=== PATIENT | male | born 1970 | race Hispanic/Latino ===

== ENCOUNTER 2019-01-16 17:29 | Inpatient (IN) | payer MEDICARE ==
[~2019-01-16] VITALS: Ht 177.8 cm; Wt 163.0 kg
[2019-01-16 18:24] LABS: BASOPHILS % (AUTO) 0.8 % (0.0-5.0); EOSINOPHILS % (AUTO) 2.2 % (0.0-8.0); HEMATOCRIT 29.5 % (42-54); LYMPHOCYTES % (AUTO) 6.6 % (21.0-51.0); MEAN CORPUSCULAR HGB CONC 33.8 g/dL (32.0-36.0); MEAN CORPUSCULAR VOLUME 97.8 fL (79-99); MONOCYTES % (AUTO) 7.6 % (3.0-13.0); NEUTROPHILS % (AUTO) 82.8 % (40.0-77.0); PLATELET COUNT (AUTO) 92 K/uL (130-400); RED BLOOD CELL COUNT(AUTO) 3.02 MIL/uL (4.50-6.20); RED CELL DISTRIBUTION WIDTH 17.3 % (11.0-15.5); WHITE BLOOD COUNT (AUTO) 9.5 K/uL (4.8-10.8)
[2019-01-16 18:34] LABS: INR 1.08 (0.85-1.15); PROTHROMBIN TIME 11.3 SEC (9.6-11.6)
[2019-01-16 18:41] LABS: CREATININE 5.9 mg/dL (0.5-1.5); POTASSIUM 4.6 mmol/L (3.5-5.1)
[2019-01-16 18:43] LABS: ALBUMIN 3.4 g/dL (3.5-5.0); BILIRUBIN,TOTAL 0.9 mg/dL (0.2-1.0); TROPONIN I 0.22 ng/mL (0.00-0.06)
[2019-01-16 19:27] LABS: APPEARANCE,URINE CLEAR (CLEAR); BILIRUBIN,URINE NEGATIVE (NEGATIVE); COLOR,URINE YELLOW (YELLOW); GLUCOSE, URINE (UA) NEGATIVE (NEGATIVE); KETONES,URINE NEGATIVE (NEGATIVE); LEUKOCYTE ESTERASE ,URINE SMALL (NEGATIVE); NITRATE,URINE NEGATIVE (NEGATIVE); OCCULT BLOOD,URINE SMALL (NEGATIVE); PH,URINE 8.5 (5.0-8.0); PROTEIN,URINE >=300 (NEGATIVE); UROBILINOGEN,URINE 0.2 mg/dL (0.2-1.0)
[2019-01-16] MEDS ORDERED: ZOSYN 3.375GM+NS 50ML 50 ML IV ONE (19:47)
[2019-01-16 19:48] LABS: BACTERIA,URINE Rare /HPF (None Seen); MUCUS,URINE Few LPF (None Seen)
[2019-01-16] MEDS ORDERED: ACETAMINOPHEN EXTRA STRENGTH 500 MG TABLET ONE (19:48)
[2019-01-16] MEDS ORDERED: VANCOMYCIN 1GM+NS 250ML 250 ML IV ONE (20:34)
[2019-01-16] MEDS ORDERED: VANCOMYCIN 1GM+NS 250ML 250 ML IV SCH (20:45)
[2019-01-16] MEDS ORDERED: ONDANSETRON HCL 4 MG/2 ML VIAL IV PRN (20:45)
[2019-01-16] MEDS ORDERED: ACETAMINOPHEN 325 MG TAB PO PRN (20:45)
[2019-01-16] MEDS ORDERED: VANCOMYCIN PROTOCOL PER PHARMACY IV SCH (20:45)
[2019-01-16] MEDS: ZOSYN 3.375GM+NS 50ML 50 ML IV SCH (21:00)
[2019-01-16] MEDS ORDERED: FAMOTIDINE/PF 20 MG/2 ML VIAL IV ONE (21:22)
[2019-01-16] MEDS ORDERED: SIMV40TA59 PO (22:54)
[2019-01-16] MEDS ORDERED: HYDR-3420 PO (22:54)
[2019-01-16] MEDS ORDERED: METO25TA6 PO (22:54)
[2019-01-16] MEDS ORDERED: SEVE800T7 PO (22:54)
[2019-01-16] MEDS ORDERED: FOLI0.8T22 PO (22:54)
[2019-01-16] MEDS ORDERED: ACETAMINOPHEN 325 MG TAB ONE ×2 (23:07)
[2019-01-16] MEDS ORDERED: HYDRALAZINE HCL 20 MG/ML VIAL ONE (23:07)
[2019-01-17] MEDS ORDERED: IBUPROFEN 600 MG TABLET ONE (00:33)
[2019-01-17] MEDS ORDERED: ZOSYN 3.375GM+NS 50ML 50 ML IV ONE ×3 (04:23→21:43)
[2019-01-17] MEDS ORDERED: ACETAMINOPHEN 325 MG TAB ONE ×2 (04:40→18:42)
[2019-01-17] MEDS ORDERED: MORPHINE SULFATE 4 MG/1ML SYG ONE ×3 (04:40→18:42)
[2019-01-17] MEDS: FAMOTIDINE/PF 20 MG/2 ML VIAL IV SCH (09:00)
[2019-01-17] MEDS: ZOSYN 3.375GM+NS 50ML 50 ML IV SCH ×2 (18:16→21:00)
[2019-01-17] MEDS ORDERED: VANCOMYCIN 1GM+NS 250ML 250 ML IV ONE (18:20)
[2019-01-17] MEDS ORDERED: FAMOTIDINE/PF 20 MG/2 ML VIAL IV ONE (21:43)
[2019-01-18] VITALS (28 sets, daily range): BP systolic 97–138; BP diastolic 35–82
[2019-01-18] MEDS ORDERED: ACETAMINOPHEN 325 MG TAB ONE (04:19)
[2019-01-18 05:03] LABS: BASOPHILS % (AUTO) 0.5 % (0.0-5.0); EOSINOPHILS % (AUTO) 0.6 % (0.0-8.0); HEMATOCRIT 28.7 % (42-54); LYMPHOCYTES % (AUTO) 3.5 % (21.0-51.0); MEAN CORPUSCULAR HEMOGLOBIN 32.4 pg (27.0-33.0); MEAN CORPUSCULAR HGB CONC 32.9 g/dL (32.0-36.0); MEAN CORPUSCULAR VOLUME 98.3 fL (79-99); NEUTROPHILS % (AUTO) 87.4 % (40.0-77.0); PLATELET COUNT (AUTO) 74 K/uL (130-400); RED BLOOD CELL COUNT(AUTO) 2.92 MIL/uL (4.50-6.20); RED CELL DISTRIBUTION WIDTH 18.6 % (11.0-15.5); WHITE BLOOD COUNT (AUTO) 19.6 K/uL (4.8-10.8)
[2019-01-18 05:24] LABS: ALBUMIN 2.7 g/dL (3.5-5.0); BILIRUBIN,TOTAL 1.7 mg/dL (0.2-1.0); MAGNESIUM 2.1 mg/dL (1.80-2.40); PHOSPHORUS 4.4 mg/dL (2.5-4.9); POTASSIUM 5.6 mmol/L (3.5-5.1); TOTAL PROTEIN, SERUM 6.9 g/dL (6.0-8.3)
[2019-01-18 05:26] LABS: CREATININE 9.5 mg/dL (0.5-1.5)
[2019-01-18] MEDS ORDERED: COMPOUND IV REFRIGERATED 1 EACH IVSOLN MISC PRN (07:30)
[2019-01-18] MEDS ORDERED: DEXTROSE 50%-WATER 25 GM/50 ML VIAL ONE (08:03)
[2019-01-18] MEDS: ZOSYN 3.375GM+NS 50ML 50 ML IV SCH ×2 (09:00→21:21)
[2019-01-18] MEDS ORDERED: VANCOMYCIN 2 GM in SODIUM CHLORIDE 0.9% 500ML 500 ML IV SCH (09:00)
[2019-01-18] MEDS ORDERED: MIDODRINE HCL 5 MG TABLET PO SCH (09:00)
[2019-01-18] MEDS: MIDODRINE HCL 5 MG TABLET PO SCH ×3 (09:00→21:21)
[2019-01-18] MEDS: INSULIN HUMULIN R 100 UNIT/ML 3ML SQ SCH ×3 (11:30→20:33)
[2019-01-18] MEDS ORDERED: BUPIVACAINE/PF 0.5% 30ML VIAL ONE (14:02)
[2019-01-18] MEDS ORDERED: LIDOCAINE HCL 1% 20 ML VIAL ONE (14:02)
[2019-01-18] MEDS ORDERED: LIDOCAINE HCL 2% 20ML ONE (14:16)
[2019-01-18] MEDS ORDERED: PROPOFOL 10 MG/ML 20ML VIAL IV ONE (14:33)
[2019-01-18] MEDS ORDERED: FENTANYL CITRATE PF 50 MCG/1 ML 2ML VIAL ONE (14:33)
[2019-01-18] MEDS ORDERED: MIDAZOLAM HCL 1 MG/ML 2ML VIAL ONE (14:33)
[2019-01-18] MEDS ORDERED: DEXTROSE 50%-WATER 50 ML DISP.SYRIN IV ONE (14:36)
[2019-01-18] MEDS ORDERED: THROMBIN-JMI 5000 UNIT/VIAL TP ONE (15:32)
[2019-01-18] MEDS: SODIUM CHLORIDE 0.9% 1000ML 1,000 ML IV PRN (15:55)
[2019-01-18 16:39] LABS: BASOPHILS % (AUTO) 0.4 % (0.0-5.0); EOSINOPHILS % (AUTO) 1.4 % (0.0-8.0); HEMATOCRIT 27.5 % (42-54); LYMPHOCYTES % (AUTO) 3.3 % (21.0-51.0); MEAN CORPUSCULAR HEMOGLOBIN 32.6 pg (27.0-33.0); MEAN CORPUSCULAR HGB CONC 33.1 g/dL (32.0-36.0); MEAN CORPUSCULAR VOLUME 98.4 fL (79-99); MONOCYTES % (AUTO) 6.6 % (3.0-13.0); NEUTROPHILS % (AUTO) 88.3 % (40.0-77.0); NUCLEATED RED BLOOD CELLS 0.1 % (0.0-0.19); PLATELET COUNT (AUTO) 71 K/uL (130-400); RED CELL DISTRIBUTION WIDTH 18.1 % (11.0-15.5); WHITE BLOOD COUNT (AUTO) 16.9 K/uL (4.8-10.8)
[2019-01-18 16:47] LABS: CREATININE 6.7 mg/dL (0.5-1.5); POTASSIUM 4.2 mmol/L (3.5-5.1)
--- NOTE | 2019-01-18 17:45 | NUR ---
Patient received from recovery room via bed. Assessment done. Dr. Goncalves notified of patient. Addendum: 01/18/19 at 1753 by JILLIAN STOUT RN RN Amended: Links added.
[2019-01-18] MEDS ORDERED: METOPROLOL TARTRATE 1 MG/ML 5ML VIAL IV PRN (18:15)
[2019-01-18] MEDS: FAMOTIDINE/PF 20 MG/2 ML VIAL IV SCH (18:28)
[2019-01-18] MEDS: ACETAMINOPHEN 325 MG TAB PO PRN ×2 (18:43→22:54)
[2019-01-19] VITALS (17 sets, daily range): BP systolic 91–158; BP diastolic 25–79
[2019-01-19] MEDS: ACETAMINOPHEN 325 MG TAB PO PRN ×2 (03:02→09:19)
[2019-01-19 03:50] LABS: HEMATOCRIT 25.9 % (42-54); MEAN CORPUSCULAR HEMOGLOBIN 32.7 pg (27.0-33.0); MEAN CORPUSCULAR HGB CONC 33.2 g/dL (32.0-36.0); MEAN CORPUSCULAR VOLUME 98.6 fL (79-99); NUCLEATED RED BLOOD CELLS 0.2 % (0.0-0.19); PLATELET COUNT (AUTO) 97 K/uL (130-400); RED BLOOD CELL COUNT(AUTO) 2.63 MIL/uL (4.50-6.20); WHITE BLOOD COUNT (AUTO) 19.2 K/uL (4.8-10.8)
[2019-01-19 04:01] LABS: CREATININE 7.5 mg/dL (0.5-1.5); POTASSIUM 4.4 mmol/L (3.5-5.1)
[2019-01-19 05:13] LABS: ERYTHROCYTE SEDIMENTATION RATE 58 MM/HR (0-20)
[2019-01-19] MEDS: INSULIN HUMULIN R 100 UNIT/ML 3ML SQ SCH ×4 (06:52→21:00)
[2019-01-19] MEDS: FAMOTIDINE/PF 20 MG/2 ML VIAL IV SCH (08:40)
[2019-01-19] MEDS: ZOSYN 3.375GM+NS 50ML 50 ML IV SCH ×2 (08:40→23:32)
[2019-01-19] MEDS: FOLIC ACID/VITAMIN B COMP W-C 1 MG CAPSULE PO SCH (09:18)
[2019-01-19] MEDS: SIMVASTATIN 20 MG TABLET PO SCH (09:18)
[2019-01-19] MEDS: METOPROLOL TARTRATE 25 MG TAB PO SCH (09:18)
--- NOTE | 2019-01-19 10:00 | NUR ---
Report given to Cesilia NATION. Patient with no acute distress noted.
[2019-01-19] MEDS: SEVELAMER HCL 800 MG TABLET PO SCH ×2 (11:05→17:07)
[2019-01-19] MEDS: MORPHINE SULFATE 4 MG/1ML SYG IV PRN (11:06)
--- NOTE | 2019-01-19 14:35 | NUR ---
DC PLAN VISITED WITH PATIENT. PATIENT LIVES ALONE. SEMI INDEPENDENT ABLE TO PERFORM SOME ADL'S. PATIENT HAS A WALKER AND WHEEL CHAIR. PROVIDER 4 HRS A DAY. FEELS SAFE TO RETURN HOME. SAYS HE HAD SIMILAR WOUNDS TO OTHER FOOT AND WAS ABLE TO DO OWN WOUND CARE. Addendum: 01/19/19 at 1437 by MANUEL ODOM RN CM Amended: Links added.
[2019-01-19] MEDS: DIPH,PERTUSS(ACELL),TET VAC/PF 0.5 ML VIAL IM SCH (17:09)
--- NOTE | 2019-01-19 20:40 | NUR ---
UNWITNESSED FALL PATIENT WAS HEARD YELLING FROM HIS ROOM. PATIENT WAS FOUND ON THE FLOOR ON HIS BOTTOM BY RIOS GOMEZ AND THIS NURSE. PATIENT STATED HE WAS ATTEMPTING TO GET UP FROM THE WHEELCHAIR AND DIDN'T REALIZE THAT THE WHEELCHAIR WASN'T LOCKED. PATIENT STATES THAT HE "SLID OFF" THE WHEELCHAIR AND LANDED ON HIS BUTT. PATIENT STATES IT WAS NOT A HARD FALL. PATIENT DENIES PAIN OR INJURY. PATIENT ASSISTED TO BED BY STAFF. VITAL SIGNS TAKEN FREQUENTLY. Josefina SLOAN, PATIENT SERVICES COORDINATOR NOTIFIED. W[facility]ACE [facility] ALSO NOTIFIED. SEE ORDERS PER WAREHOUSE CLERK. CALL LIGHT PLACED WITHIN PATIENT'S REACH. ADVISED PATIENT NOT TO ATTEMPT TO GET UP WITHOUT ASSISTANCE. PATIENT VERBALIZED UNDERSTANDING.
[2019-01-19] MEDS: HYDRALAZINE HCL 10 MG TABLET PO SCH (21:00)
[2019-01-20 02:49] VITALS: BP 107/59
[2019-01-20 03:36] LABS: HEMATOCRIT 24.7 % (42-54); MEAN CORPUSCULAR HEMOGLOBIN 33.6 pg (27.0-33.0); MEAN CORPUSCULAR HGB CONC 34.5 g/dL (32.0-36.0); MEAN CORPUSCULAR VOLUME 97.4 fL (79-99); NUCLEATED RED BLOOD CELLS 0.1 % (0.0-0.19); PLATELET COUNT (AUTO) 97 K/uL (130-400); RED BLOOD CELL COUNT(AUTO) 2.53 MIL/uL (4.50-6.20); RED CELL DISTRIBUTION WIDTH 18.3 % (11.0-15.5); WHITE BLOOD COUNT (AUTO) 13.8 K/uL (4.8-10.8)
[2019-01-20 03:54] LABS: PHOSPHORUS 4.1 mg/dL (2.5-4.9); POTASSIUM 4.3 mmol/L (3.5-5.1)
[2019-01-20 03:56] LABS: CREATININE 9.2 mg/dL (0.5-1.5)
[2019-01-20 05:45] LABS: EOSINOPHILS % (MANUAL) 3 % (1-6); LYMPHOCYTES % (MANUAL) 8 % (22-44); MONOCYTES % (MANUAL) 7 % (2-9); SEGMENTED NEUTROPHILS % 82 % (40-70)
[2019-01-20 05:46] LABS: MAN.DIFF COMMENT-IMPRESSION MANUAL DIFFERENTIAL; PLATELET MORPHOLOGY COMMENT SLIGHTLY DECREASED
[2019-01-20] MEDS: INSULIN HUMULIN R 100 UNIT/ML 3ML SQ SCH ×4 (05:46→20:59)
[2019-01-20] MEDS: SIMVASTATIN 20 MG TABLET PO SCH (07:42)
[2019-01-20] MEDS: ZOSYN 3.375GM+NS 50ML 50 ML IV SCH ×2 (07:42→21:02)
[2019-01-20] MEDS: METOPROLOL TARTRATE 25 MG TAB PO SCH (07:42)
[2019-01-20] MEDS: FOLIC ACID/VITAMIN B COMP W-C 1 MG CAPSULE PO SCH (07:42)
[2019-01-20] MEDS: SEVELAMER HCL 800 MG TABLET PO SCH ×3 (07:42→16:45)
[2019-01-20] MEDS: FAMOTIDINE/PF 20 MG/2 ML VIAL IV SCH (07:42)
[2019-01-20 08:09] VITALS: BP 140/81
[2019-01-20] MEDS: DIPH,PERTUSS(ACELL),TET VAC/PF 0.5 ML VIAL IM SCH (11:31)
[2019-01-20 11:49] VITALS: BP 105/70
[2019-01-20 16:00] VITALS: BP 129/69
[2019-01-20 19:26] VITALS: BP 156/57
[2019-01-20] MEDS: HYDRALAZINE HCL 10 MG TABLET PO SCH (21:00)
[2019-01-20 23:26] VITALS: BP 114/53
[2019-01-21] MEDS: ACETAMINOPHEN 325 MG TAB PO PRN ×2 (03:30→20:29)
[2019-01-21 04:06] VITALS: BP 135/58
[2019-01-21 04:49] LABS: BASOPHILS % (AUTO) 0.7 % (0.0-5.0); EOSINOPHILS % (AUTO) 3.4 % (0.0-8.0); HEMATOCRIT 23.7 % (42-54); MEAN CORPUSCULAR HEMOGLOBIN 33.1 pg (27.0-33.0); MEAN CORPUSCULAR VOLUME 97.4 fL (79-99); MONOCYTES % (AUTO) 12.5 % (3.0-13.0); NEUTROPHILS % (AUTO) 74.4 % (40.0-77.0); NUCLEATED RED BLOOD CELLS 0.2 % (0.0-0.19); PLATELET COUNT (AUTO) 109 K/uL (130-400); RED BLOOD CELL COUNT(AUTO) 2.44 MIL/uL (4.50-6.20); WHITE BLOOD COUNT (AUTO) 11.4 K/uL (4.8-10.8)
[2019-01-21 05:07] LABS: POTASSIUM 4.5 mmol/L (3.5-5.1)
[2019-01-21 05:13] LABS: CREATININE 10.7 mg/dL (0.5-1.5)
[2019-01-21] MEDS: INSULIN HUMULIN R 100 UNIT/ML 3ML SQ SCH ×4 (06:37→21:00)
[2019-01-21 07:37] VITALS: BP 109/37
[2019-01-21] MEDS: DIPH,PERTUSS(ACELL),TET VAC/PF 0.5 ML VIAL IM SCH (07:49)
[2019-01-21] MEDS: SEVELAMER HCL 800 MG TABLET PO SCH ×3 (08:38→16:46)
[2019-01-21] MEDS: FOLIC ACID/VITAMIN B COMP W-C 1 MG CAPSULE PO SCH (09:07)
[2019-01-21] MEDS: FAMOTIDINE/PF 20 MG/2 ML VIAL IV SCH (09:07)
[2019-01-21] MEDS: SIMVASTATIN 20 MG TABLET PO SCH (09:07)
[2019-01-21] MEDS: METOPROLOL TARTRATE 25 MG TAB PO SCH (09:07)
[2019-01-21] MEDS: ZOSYN 3.375GM+NS 50ML 50 ML IV SCH ×2 (09:07→20:49)
[2019-01-21 11:08] VITALS: BP 113/62
--- NOTE | 2019-01-21 14:37 | NUR ---
DC PLAN SPOKE TO DR. RAKESH BLACKWOOD. SPOKE TO PATIENT . GOT CORY AND INFO FAXED AND EMAILED. PENDING REP. SEE CARDIO NOTE.
--- NOTE | 2019-01-21 14:39 | NUR ---
CARDIO SPOKE TO DR. CAMERON REGARDING DR. GOOD NOTES. DR. GOOD SAID WANTED CARDIO TO SEE ABOUT CIRCULATION SINCE POSTERIOR TIBIAL ARTERY COULD NOT BE SEEN IN US. HE MENTIONED DR. ADDISON BUT NO ORDER PLACED. DR. STARK SAID [facility] HAD ALREADY BEEN CONSULTED DR. SCHMIDT. SPOKE TO KATHY TO SEE IF THEY HAD SEEN PATIENT. SAID THEY HAD NOT BUT THAT DR. TRACEY FOOTWEAR PRODUCTION MACHINE OPERATOR TODAY AND TO PAGE HIM. I DID GO OVER THE US AND DR. GOOD NOTES WITH KATHY. LET RAMON NURSE KNOW ABOUT CARDIO CONSULT.
[2019-01-21 15:22] VITALS: BP 113/55
[2019-01-21] MEDS: SODIUM CHLORIDE 0.9% 1000ML 1,000 ML IV PRN (18:37)
[2019-01-21 18:59] VITALS: BP 151/63
--- NOTE | 2019-01-21 19:45 | NUR ---
NEW IV TO RIGHT WRIST 20G. DONE BY DONALD NATION.
[2019-01-21] MEDS: MORPHINE SULFATE 4 MG/1ML SYG IV PRN (20:50)
[2019-01-21] MEDS: HYDRALAZINE HCL 10 MG TABLET PO SCH (21:00)
--- NOTE | 2019-01-21 21:00 | NUR ---
PT IS IN BED. FINISHED DIALYSIS. 2.5 LITERS WERE REMOVED. NO DISTRESS NOTED.LOW BLOOD PRESSURE SO DID NOT RECEIVE HYDRALAZINE. 117/56. STABLE. ROOM AIR. AAO4. PERRLA. ACTIVE BOWEL SOUNDS. LAST BM 01/21.CONTINUE TO HAVE DRAINAGE IN WOUND ON RIGHT LOWER HEEL. HAS RIGHT AMPUTATION TO GREAT TOE. DR. GOOD DID DRESSING TODAY DURING THE DAY. PT AWARE OF CT'S SCHEDULE FOR THE AM AND NPO BY MIDNIGHT.
--- NOTE | 2019-01-21 22:45 | NUR ---
PT IS AFIB. TRENDING IN 103-106'S. NO DISTRESS NOTED. NOTIFIED DR. TRACEY. STATED IS AWARE. PT WILL BE GOING IN AND OUT OF AFIB. LOPRESSOR IV AVAILABLE IF NEEDED FOR HR OVER 100. NEW ORDER FOR LOPRESSOR 25MG BID.
[2019-01-21 23:15] VITALS: BP 106/56
[2019-01-22] MEDS: ACETAMINOPHEN 325 MG TAB PO PRN ×2 (02:46→13:42)
[2019-01-22 03:24] VITALS: BP 108/50
[2019-01-22] MEDS: MORPHINE SULFATE 4 MG/1ML SYG IV PRN (04:14)
--- NOTE | 2019-01-22 05:26 | NUR ---
PT IS SR 85
[2019-01-22] MEDS: INSULIN HUMULIN R 100 UNIT/ML 3ML SQ SCH ×4 (06:18→20:47)
[2019-01-22 07:53] VITALS: BP 128/64
[2019-01-22] MEDS: SEVELAMER HCL 800 MG TABLET PO SCH ×3 (08:00→16:58)
[2019-01-22] MEDS: FAMOTIDINE/PF 20 MG/2 ML VIAL IV SCH (09:00)
[2019-01-22] MEDS: FOLIC ACID/VITAMIN B COMP W-C 1 MG CAPSULE PO SCH (09:00)
[2019-01-22] MEDS: SIMVASTATIN 20 MG TABLET PO SCH (09:00)
[2019-01-22] MEDS: METOPROLOL TARTRATE 25 MG TAB PO SCH ×2 (09:00→21:00)
[2019-01-22] MEDS: APIXABAN 5 MG TABLET PO SCH ×3 (09:15→20:24)
[2019-01-22] MEDS: ZOSYN 3.375GM+NS 50ML 50 ML IV SCH ×2 (11:02→20:17)
[2019-01-22] MEDS: DIPH,PERTUSS(ACELL),TET VAC/PF 0.5 ML VIAL IM SCH (11:08)
[2019-01-22 11:33] VITALS: BP 146/75
[2019-01-22 15:50] VITALS: BP 143/58
--- NOTE | 2019-01-22 16:00 | NUR ---
PT STATUS After multiple unsuccessful attempts for PIV insertion, phone call placed to [facility] in an attempt to update . CT angiogram ordered by has not yet been completed because pt has had unacceptable access to perform contrast injection. PIV insertion with use of ultrasound was also attempted. made aware of situation.
[2019-01-22 18:49] VITALS: BP 138/65
[2019-01-22] MEDS: HYDRALAZINE HCL 10 MG TABLET PO SCH (20:20)
--- NOTE | 2019-01-22 21:00 | NUR ---
IN BED, FAMILY AT BEDSIDE. DR. GOOD CAME IN TO SEE PT AND DO WOUND CARE. PT WAS UNABLE TO HAVE CT DONE DUE TO NO PERIPHERAL ACCESS. DIFFICULTY GETTING AN IV AFTER MULTIPLE ATTEMPTS AND ULTRASOUNDS. PENDING BENTON CATHETER TO BE PLACED 01/23 AT 1400 PER TRAVELING CLERK. PT AWARE. NO PAIN STATED AT THIS TIME. PT ABLE TO TRANSFER ON HIS OWN. USES WHEELCHAIR.
[2019-01-22 23:16] VITALS: BP 123/62
[2019-01-23 03:17] VITALS: BP 132/61
[2019-01-23 03:54] LABS: INR 1.15 (0.85-1.15); PARTIAL THROMBOPLASTIN TIME 32.2 SEC (26.3-35.5)
[2019-01-23] MEDS: INSULIN HUMULIN R 100 UNIT/ML 3ML SQ SCH ×3 (06:42→21:00)
[2019-01-23] MEDS: ACETAMINOPHEN 325 MG TAB PO PRN (06:49)
--- NOTE | 2019-01-23 07:40 | NUR ---
ASSESSMENT ENCOUNTERED PT A&OX3, CALM COOPERATIVE AND DOES NOT APPEAR TO BE IN ANY DISTRESS NOR ANY NEURO DEFICITS PRESENT. PT DENIES PAIN, SOB, NAUSEA. LAVA WITH BRUIT/THRILL PRESENT. RLE DRESSING DRY AND INTACT. PT IS ABLE TO REPOSITION HIMSELF TO WHEELCHAIR. CALL LIGHT WITHIN REACH, FAMILY AT BEDSIDE.
[2019-01-23 07:48] VITALS: BP 130/70
[2019-01-23 08:22] LABS: HEPATITIS Bs ANTIGEN SCREEN P Negative (Negative)
[2019-01-23 11:36] VITALS: BP 119/49
--- NOTE | 2019-01-23 12:45 | NUR ---
MIGUELCREEN - LOS X 7 Patient post-op amputation. Patient tolerating 75gm CCD with no report of GI distress and PO intake at 100%. Diet modified to Renal Dialysis. Patient LBM 01/21/19. Patient monitored labs: Glu 137, Alb 2.5, Na 133, Cl 92, BUN 77, Cr 10.7, GFR 5, Ca 8.4. RD provided dialysis diet education. RD to continue to monitor. Please notify ÁNGELA as nutritional concerns arise. Addendum: 01/23/19 at [address] RD Amended: Links added.
--- NOTE | 2019-01-23 12:58 | NUR ---
Diet Education ÁNGELA Provided Renal Dialysis diet education. Patient accepted education reference materials and handouts. Patient verbalized understanding. RD to follow up. Addendum: 01/23/19 at [address] Amended: Links added.
[2019-01-23] MEDS ORDERED: IOHEXOL-350 75 ML VIAL IV ONE (14:25)
[2019-01-23] MEDS ORDERED: IOHEXOL-350 50ML VIAL IV ONE (14:25)
[2019-01-23 16:30] VITALS: BP 164/76
[2019-01-23 19:00] VITALS: BP 151/74
--- NOTE | 2019-01-23 20:00 | NUR ---
PATIENT JUST COMPLETED DIALYSIS. DENIES ANY COMPLAINTS OF PAIN OR DISCOMFORT. POSITIVE BRUIT/THRILL TO LT AV GRAFT. DRESSING TO FOOT CLEAN, DRY, AND INTACT. IV SITE INTACT, TO GO WITH PATIENT. CALL DIANE WITHIN REACH.
[2019-01-23] MEDS: APIXABAN 5 MG TABLET PO SCH (20:10)
[2019-01-23] MEDS: HYDRALAZINE HCL 10 MG TABLET PO SCH (20:10)
[2019-01-23] MEDS: METOPROLOL TARTRATE 25 MG TAB PO SCH (20:11)
[2019-01-23] MEDS ORDERED: EPOETIN ALFA 10,000 UNIT/ML VIAL SQ SCH (21:00)
[2019-01-23 23:00] VITALS: BP 145/73
--- NOTE | 2019-01-23 23:52 | NUR ---
PATIENT TAKEN BY STRETCHER TO [facility]. ALL PAPERWORK ACCOMPANIED PATIENT AND EMS. PATIENT TAKES HAS GOT ALL HIS PERSONAL PROPERTY
== END 2019-01-23 23:50 | DRG 853 ==
LOC: EDH 17:29 → EDHIP 19:55 → 2BH 01-18 17:51 → 2AH 01-19 09:54
PROVIDERS: ADMIT Internal Medicine; ATTEND Internal Medicine
PROC: 0Y6P0Z0 Detachment at Right 1st Toe, Complete, Open Approach (ICD-10-PCS; principal; 2019-01-16)
PROC: 3E0234Z Introduction of Serum, Toxoid and Vaccine into Muscle, Percutaneous Approach (ICD-10-PCS; 2019-01-16)
PROC: 5A1D70Z Performance of Urinary Filtration, Intermittent, Less than 6 Hours Per Day (ICD-10-PCS; 2019-01-18)
PROC: 5A1D70Z Performance of Urinary Filtration, Intermittent, Less than 6 Hours Per Day (ICD-10-PCS; 2019-01-21)
PROC: 5A1D70Z Performance of Urinary Filtration, Intermittent, Less than 6 Hours Per Day (ICD-10-PCS; 2019-01-23)
DX: A41.01 Sepsis due to Methicillin susceptible Staphylococcus aureus (principal); N18.6 End stage renal disease; R65.21 Severe sepsis with septic shock; L03.115 Cellulitis of right lower limb; Z68.43 Body mass index [BMI] 50.0-59.9, adult; M86.671 Other chronic osteomyelitis, right ankle and foot; I13.11 Hypertensive heart and chronic kidney disease without heart failure, with stage 5 chronic kidney disease, or end stage renal disease; M86.171 Other acute osteomyelitis, right ankle and foot; E66.2 Morbid (severe) obesity with alveolar hypoventilation; A41.89 Other specified sepsis; E11.22 Type 2 diabetes mellitus with diabetic chronic kidney disease; L97.519 Non-pressure chronic ulcer of other part of right foot with unspecified severity; D64.9 Anemia, unspecified; D69.6 Thrombocytopenia, unspecified; E11.42 Type 2 diabetes mellitus with diabetic polyneuropathy; E11.51 Type 2 diabetes mellitus with diabetic peripheral angiopathy without gangrene; E11.610 Type 2 diabetes mellitus with diabetic neuropathic arthropathy; E11.621 Type 2 diabetes mellitus with foot ulcer; E11.622 Type 2 diabetes mellitus with other skin ulcer; E11.628 Type 2 diabetes mellitus with other skin complications; E11.649 Type 2 diabetes mellitus with hypoglycemia without coma; E11.69 Type 2 diabetes mellitus with other specified complication; E78.00 Pure hypercholesterolemia, unspecified; E78.5 Hyperlipidemia, unspecified; E87.5 Hyperkalemia; I48.0 Paroxysmal atrial fibrillation; I87.2 Venous insufficiency (chronic) (peripheral); M21.969 Unspecified acquired deformity of unspecified lower leg; W19.XXXA Unspecified fall, initial encounter; Y93.89 Activity, other specified; Y92.89 Other specified places as the place of occurrence of the external cause; Y99.8 Other external cause status; Z79.01 Long term (current) use of anticoagulants; Z79.4 Long term (current) use of insulin; Z79.899 Other long term (current) drug therapy; Z99.2 Dependence on renal dialysis; Z98.42 Cataract extraction status, left eye; Z98.41 Cataract extraction status, right eye; Z87.891 Personal history of nicotine dependence; Z23 Encounter for immunization; Z83.3 Family history of diabetes mellitus; Z82.49 Family history of ischemic heart disease and other diseases of the circulatory system
CPT/HCPCS: 36415; 71045; 72220; 73521; 73630; 73718; 75635; 80048; 80053; 81001; 82040; 82550; 82948; 83605; 83735; 83874; 84100; 84484; 85025; 85027; 85610; 85651; 85730; 86140; 86701; 86704; 86706; 87040; 87070; 87076; 87077; 87088; 87186; 87205; 87340; 87390; 87520; 87804; 88304; 88311; 90715; 90935; 93005; 93306; 93925; 97039; 99291; G0378; J0360; J0885; J1815; J2250; J2270; J2543; J2704; J3010; J3370; J3490; J7030; J7040; J7070; Q9967

== ENCOUNTER 2021-08-18 14:15 | Inpatient (IN) | payer MEDICARE ==
[~2021-08-18] VITALS: Ht 177.8 cm; Wt 137.0 kg
[~2021-08-18 14:15] MED LIST: FOLI0.8T22 PO; HYDR-3420 PO; METO25TA6 PO; SEVE800T7 PO; SIMV40TA59 PO
[2021-08-18 14:41] LABS: BASOPHILS % (AUTO) 1.2 % (0.0-5.0); EOSINOPHILS % (AUTO) 1.2 % (0.0-8.0); HEMATOCRIT 23.8 % (42-54); LYMPHOCYTES % (AUTO) 16.2 % (21.0-51.0); MEAN CORPUSCULAR HEMOGLOBIN 29.4 pg (27.0-33.0); MEAN CORPUSCULAR HGB CONC 31.1 g/dL (32.0-36.0); MEAN CORPUSCULAR VOLUME 94.4 fL (79-99); NEUTROPHILS % (AUTO) 71.7 % (40.0-77.0); PLATELET COUNT (AUTO) 70 K/uL (130-400); RED BLOOD CELL COUNT(AUTO) 2.52 MIL/uL (4.50-6.20); WHITE BLOOD COUNT (AUTO) 4.3 K/uL (4.8-10.8)
[2021-08-18 14:57] LABS: CREATININE 5.3 mg/dL (0.5-1.5); POTASSIUM 4.6 mmol/L (3.5-5.1)
[2021-08-18] MEDS ORDERED: 0.9%NACL 1000ML 1,000 ML IV ONE (15:00)
[2021-08-18 15:02] LABS: ALBUMIN 2.6 g/dL (3.5-5.0); BILIRUBIN,TOTAL 0.5 mg/dL (0.2-1.0); TOTAL PROTEIN, SERUM 6.1 g/dL (6.0-8.3)
[2021-08-18] MEDS ORDERED: 0.9% NACL 250ML IVPB ONE (19:30)
[2021-08-18] MEDS ORDERED: VANCOMYCIN 1G VIAL IVPB ONE (19:30)
[2021-08-18] MEDS ORDERED: ACETAMINOPHEN 325 MG TAB PO PRN (20:00)
[2021-08-18] MEDS ORDERED: ONDANSETRON 4MG INJ IVP PRN (20:00)
[2021-08-18] MEDS ORDERED: DOPAMINE HCL 400 MG/D5%-WATER 250 ML IV PRN (20:00)
[2021-08-18] MEDS ORDERED: NOREPINEPHRIN 4MG/NS 250ML 250 ML IV SCH (20:00)
[2021-08-18 20:04] LABS: HEMATOCRIT 19.4 % (42-54)
[2021-08-18] MEDS ORDERED: PANTOPRAZOLE 40 MG/VIAL ONE (20:26)
[2021-08-18] MEDS ORDERED: HYDR-4153 PO (20:31)
[2021-08-18] MEDS ORDERED: SEVE800T7 PO (20:31)
[2021-08-18] MEDS ORDERED: METO25TA6 PO (20:31)
[2021-08-18] MEDS ORDERED: SIMV-43 PO (20:31)
[2021-08-18] MEDS ORDERED: FOLI1TAB85 PO (20:31)
[2021-08-18] MEDS ORDERED: VANCOMYCIN 1G/250ML KIT 250 ML IV ONE (21:15)
[2021-08-18] MEDS ORDERED: METRONIDAZOLE 500MG/100ML BAG 100 ML ONE (21:15)
[2021-08-18] MEDS: METRONIDAZOLE 500 MG TABLET PO SCH ×2 (22:00→22:10)
[2021-08-19] VITALS (9 sets, daily range): BP systolic 113–132; BP diastolic 46–65
[2021-08-19] MEDS: METRONIDAZOLE 500 MG TABLET PO SCH ×3 (06:00→23:41)
[2021-08-19 06:18] LABS: EOSINOPHILS % (AUTO) 3.9 % (0.0-8.0); HEMATOCRIT 24.2 % (42-54); LYMPHOCYTES % (AUTO) 22.3 % (21.0-51.0); MEAN CORPUSCULAR HEMOGLOBIN 29.9 pg (27.0-33.0); MEAN CORPUSCULAR HGB CONC 32.2 g/dL (32.0-36.0); MEAN CORPUSCULAR VOLUME 92.7 fL (79-99); MONOCYTES % (AUTO) 10.2 % (3.0-13.0); NEUTROPHILS % (AUTO) 62.1 % (40.0-77.0); PLATELET COUNT (AUTO) 56 K/uL (130-400); RED BLOOD CELL COUNT(AUTO) 2.61 MIL/uL (4.50-6.20); WHITE BLOOD COUNT (AUTO) 3.8 K/uL (4.8-10.8)
[2021-08-19 06:37] LABS: ALBUMIN 2.4 g/dL (3.5-5.0); BILIRUBIN,DIRECT 0.2 mg/dL (0.0-0.3); BILIRUBIN,TOTAL 0.6 mg/dL (0.2-1.0); CREATININE 6.4 mg/dL (0.5-1.5); MAGNESIUM 2.2 mg/dL (1.80-2.40); PHOSPHORUS 4.1 mg/dL (2.5-4.9); TOTAL PROTEIN, SERUM 5.3 g/dL (6.0-8.3)
[2021-08-19] MEDS: PANTOPRAZOLE 40 MG/VIAL IVP SCH (08:18)
[2021-08-19 14:01] LABS: HEMATOCRIT 21.6 % (42-54)
[2021-08-19 14:15] LABS: INR 1.18 (0.85-1.15); PROTHROMBIN TIME 12.7 SEC (9.6-11.6)
[2021-08-20] VITALS (41 sets, daily range): BP systolic 101–151; BP diastolic 44–80
[2021-08-20 03:38] LABS: HEMATOCRIT 22.4 % (42-54); MEAN CORPUSCULAR HEMOGLOBIN 29.6 pg (27.0-33.0); MEAN CORPUSCULAR HGB CONC 32.1 g/dL (32.0-36.0); MEAN CORPUSCULAR VOLUME 92.2 fL (79-99); PLATELET COUNT (AUTO) 51 K/uL (130-400); RED BLOOD CELL COUNT(AUTO) 2.43 MIL/uL (4.50-6.20); RED CELL DISTRIBUTION WIDTH 17.4 % (11.0-15.5); WHITE BLOOD COUNT (AUTO) 3.3 K/uL (4.8-10.8)
[2021-08-20 03:55] LABS: INR 1.13 (0.85-1.15); PROTHROMBIN TIME 12.2 SEC (9.6-11.6)
[2021-08-20 03:56] LABS: PARTIAL THROMBOPLASTIN TIME 26.9 SEC (26.3-35.5)
[2021-08-20 04:02] LABS: ALBUMIN 2.7 g/dL (3.5-5.0); BILIRUBIN,TOTAL 0.7 mg/dL (0.2-1.0); MAGNESIUM 2.4 mg/dL (1.80-2.40); PHOSPHORUS 4.5 mg/dL (2.5-4.9); POTASSIUM 4.7 mmol/L (3.5-5.1); TOTAL PROTEIN, SERUM 5.7 g/dL (6.0-8.3)
[2021-08-20 04:09] LABS: CREATININE 8.5 mg/dL (0.5-1.5)
[2021-08-20 04:27] LABS: BAND NEUTROPHILS % (MANUAL) 1 % (0-2); BASOPHILS % (MANUAL) 2 % (0-2); EOSINOPHILS % (MANUAL) 5 % (1-6); LYMPHOCYTES % (MANUAL) 17 % (22-44); MAN.DIFF COMMENT-IMPRESSION MANUAL DIFFERENTIAL; MONOCYTES % (MANUAL) 6 % (2-9); REACTIVE LYMPHOCYTES 3 % (0-0); SEGMENTED NEUTROPHILS % 66 % (40-70)
[2021-08-20 04:33] LABS: PLATELET MORPHOLOGY COMMENT DECREASED
[2021-08-20] MEDS: METRONIDAZOLE 500 MG TABLET PO SCH ×3 (06:00→22:19)
[2021-08-20] MEDS: PANTOPRAZOLE 40 MG/VIAL IVP SCH (11:05)
[2021-08-20] MEDS ORDERED: LIDOCAINE HCL 1% 20 ML VIAL ONE (12:02)
[2021-08-20] MEDS ORDERED: PROPOFOL 10 MG/ML 20ML VIAL IV ONE (12:02)
[2021-08-20] MEDS ORDERED: FENTANYL CITRATE PF 50 MCG/1 ML 2ML VIAL ONE (12:58)
[2021-08-20] MEDS ORDERED: OCTREOTIDE ACETATE 100 MCG/ML AMP IV SCH (13:30)
[2021-08-20] MEDS: OCTREOTIDE ACETATE 1,250 MCG in 0.9% NACL 250ML 250 ML IV SCH (14:09)
[2021-08-21] VITALS (13 sets, daily range): BP systolic 106–146; BP diastolic 49–88
[2021-08-21 04:15] LABS: HEMATOCRIT 24.7 % (42-54); MEAN CORPUSCULAR HEMOGLOBIN 30.2 pg (27.0-33.0); MEAN CORPUSCULAR HGB CONC 32.8 g/dL (32.0-36.0); MEAN CORPUSCULAR VOLUME 92.2 fL (79-99); PLATELET COUNT (AUTO) 74 K/uL (130-400); RED BLOOD CELL COUNT(AUTO) 2.68 MIL/uL (4.50-6.20); RED CELL DISTRIBUTION WIDTH 17.8 % (11.0-15.5); WHITE BLOOD COUNT (AUTO) 3.3 K/uL (4.8-10.8)
[2021-08-21 04:31] LABS: CREATININE 7.3 mg/dL (0.5-1.5); PHOSPHORUS 4.7 mg/dL (2.5-4.9); POTASSIUM 4.3 mmol/L (3.5-5.1)
[2021-08-21 05:02] LABS: BASOPHILS % (MANUAL) 1 % (0-2); EOSINOPHILS % (MANUAL) 7 % (1-6); LYMPHOCYTES % (MANUAL) 34 % (22-44); MAN.DIFF COMMENT-IMPRESSION MANUAL DIFFERENTIAL; MONOCYTES % (MANUAL) 3 % (2-9); REACTIVE LYMPHOCYTES 1 % (0-0); SEGMENTED NEUTROPHILS % 54 % (40-70)
[2021-08-21] MEDS: METRONIDAZOLE 500 MG TABLET PO SCH ×3 (06:31→23:11)
[2021-08-21 08:13] LABS: HEPATITIS B CORE IGM Negative (Negative); HEPATITIS Bs ANTIGEN SCREEN P Negative (Negative)
[2021-08-21] MEDS: PANTOPRAZOLE 40 MG/VIAL IVP SCH (09:05)
[2021-08-21] MEDS: OCTREOTIDE ACETATE 1,250 MCG in 0.9% NACL 250ML 250 ML IV SCH (14:59)
[2021-08-22] VITALS (7 sets, daily range): BP systolic 121–151; BP diastolic 50–75
[2021-08-22] MEDS: METRONIDAZOLE 500 MG TABLET PO SCH ×3 (06:08→22:10)
[2021-08-22 06:45] LABS: MEAN CORPUSCULAR HEMOGLOBIN 30.1 pg (27.0-33.0); MEAN CORPUSCULAR VOLUME 94.1 fL (79-99); PLATELET COUNT (AUTO) 53 K/uL (130-400); RED BLOOD CELL COUNT(AUTO) 2.19 MIL/uL (4.50-6.20); RED CELL DISTRIBUTION WIDTH 17.6 % (11.0-15.5); WHITE BLOOD COUNT (AUTO) 1.9 K/uL (4.8-10.8)
[2021-08-22 07:17] LABS: HEMATOCRIT 20.6 % (42-54)
[2021-08-22 08:00] LABS: MAGNESIUM 2.3 mg/dL (1.80-2.40); POTASSIUM 4.7 mmol/L (3.5-5.1)
[2021-08-22 08:10] LABS: EOSINOPHILS % (MANUAL) 9 % (1-6); LYMPHOCYTES % (MANUAL) 38 % (22-44); MAN.DIFF COMMENT-IMPRESSION MANUAL DIFFERENTIAL; MONOCYTES % (MANUAL) 4 % (2-9); REACTIVE LYMPHOCYTES 1 % (0-0); SEGMENTED NEUTROPHILS % 48 % (40-70)
[2021-08-22 08:11] LABS: PLATELET MORPHOLOGY COMMENT DECREASED
[2021-08-22] MEDS: PANTOPRAZOLE 40 MG/VIAL IVP SCH (08:56)
[2021-08-22 09:21] LABS: CREATININE 9.5 mg/dL (0.5-1.5)
[2021-08-23] VITALS (20 sets, daily range): BP systolic 137–178; BP diastolic 38–84
[2021-08-23] MEDS: METRONIDAZOLE 500 MG TABLET PO SCH ×3 (06:14→21:26)
[2021-08-23] MEDS: PANTOPRAZOLE 40 MG/VIAL IVP SCH (10:18)
[2021-08-23] MEDS ORDERED: EPOETIN ALFA-EPBX (ESRD) 10,000 UNIT/ML VIAL SQ SCH (16:30)
[2021-08-23] MEDS: 0.9%NACL 1000ML 1,000 ML IV PRN (17:43)
[2021-08-23] MEDS: EPOETIN ALFA-EPBX (ESRD) 10,000 UNIT/ML VIAL SQ SCH (21:26)
[2021-08-24] VITALS: BP 148/60
[2021-08-24 04:00] VITALS: BP 141/50
[2021-08-24 05:05] LABS: HEMATOCRIT 23.8 % (42-54); MEAN CORPUSCULAR HEMOGLOBIN 30.4 pg (27.0-33.0); MEAN CORPUSCULAR HGB CONC 32.8 g/dL (32.0-36.0); MEAN CORPUSCULAR VOLUME 92.6 fL (79-99); RED BLOOD CELL COUNT(AUTO) 2.57 MIL/uL (4.50-6.20)
[2021-08-24 05:25] LABS: ALBUMIN 2.9 g/dL (3.5-5.0); POTASSIUM 4.5 mmol/L (3.5-5.1)
[2021-08-24 05:30] LABS: CREATININE 9.3 mg/dL (0.5-1.5)
[2021-08-24] MEDS: METRONIDAZOLE 500 MG TABLET PO SCH ×3 (06:05→20:18)
[2021-08-24 07:45] VITALS: BP 151/58
[2021-08-24] MEDS: PANTOPRAZOLE 40 MG/VIAL IVP SCH (10:37)
[2021-08-24 11:40] VITALS: BP 157/49
[2021-08-24 15:40] VITALS: BP 164/59
[2021-08-24 20:00] VITALS: BP 174/71
[2021-08-25] VITALS (21 sets, daily range): BP systolic 105–153; BP diastolic 37–85
[2021-08-25 05:36] LABS: BASOPHILS % (AUTO) 0.8 % (0.0-5.0); EOSINOPHILS % (AUTO) 5.3 % (0.0-8.0); HEMATOCRIT 25.6 % (42-54); MEAN CORPUSCULAR HEMOGLOBIN 30.1 pg (27.0-33.0); MEAN CORPUSCULAR HGB CONC 33.2 g/dL (32.0-36.0); MEAN CORPUSCULAR VOLUME 90.8 fL (79-99); MONOCYTES % (AUTO) 9.8 % (3.0-13.0); NEUTROPHILS % (AUTO) 51.7 % (40.0-77.0); PLATELET COUNT (AUTO) 54 K/uL (130-400); RED BLOOD CELL COUNT(AUTO) 2.82 MIL/uL (4.50-6.20); RED CELL DISTRIBUTION WIDTH 17.9 % (11.0-15.5); WHITE BLOOD COUNT (AUTO) 2.4 K/uL (4.8-10.8)
[2021-08-25] MEDS: METRONIDAZOLE 500 MG TABLET PO SCH ×3 (05:48→21:32)
[2021-08-25 05:50] LABS: POTASSIUM 4.5 mmol/L (3.5-5.1)
[2021-08-25 05:57] LABS: CREATININE 11.5 mg/dL (0.5-1.5)
[2021-08-25 06:08] LABS: EOSINOPHILS % (MANUAL) 5 % (1-6); LYMPHOCYTES % (MANUAL) 31 % (22-44); MAN.DIFF COMMENT-IMPRESSION MANUAL DIFFERENTIAL; MONOCYTES % (MANUAL) 2 % (2-9); SEGMENTED NEUTROPHILS % 62 % (40-70)
[2021-08-25 06:09] LABS: PLATELET MORPHOLOGY COMMENT DECREASED
[2021-08-25] MEDS: PANTOPRAZOLE 40 MG/VIAL IVP SCH ×2 (09:00→13:52)
[2021-08-25] MEDS ORDERED: METOPROLOL TARTRATE 1 MG/ML 5ML VIAL IV PRN (10:00)
[2021-08-25] MEDS: 0.9%NACL 1000ML 1,000 ML IV PRN (10:15)
[2021-08-25] MEDS: METOPROLOL TARTRATE 25 MG TAB PO SCH ×2 (13:52→21:32)
[2021-08-25] MEDS: EPOETIN ALFA-EPBX (ESRD) 10,000 UNIT/ML VIAL SQ SCH (21:33)
[2021-08-26] VITALS: BP 140/62
[2021-08-26 04:00] VITALS: BP 151/63
[2021-08-26 05:12] LABS: HEMATOCRIT 25.1 % (42-54); MEAN CORPUSCULAR HEMOGLOBIN 30.3 pg (27.0-33.0); MEAN CORPUSCULAR HGB CONC 33.1 g/dL (32.0-36.0); MEAN CORPUSCULAR VOLUME 91.6 fL (79-99); PLATELET COUNT (AUTO) 43 K/uL (130-400); RED BLOOD CELL COUNT(AUTO) 2.74 MIL/uL (4.50-6.20); RED CELL DISTRIBUTION WIDTH 18.1 % (11.0-15.5); WHITE BLOOD COUNT (AUTO) 2.2 K/uL (4.8-10.8)
[2021-08-26 05:39] LABS: EOSINOPHILS % (MANUAL) 6 % (1-6); LYMPHOCYTES % (MANUAL) 29 % (22-44); MONOCYTES % (MANUAL) 3 % (2-9); REACTIVE LYMPHOCYTES 2 % (0-0); SEGMENTED NEUTROPHILS % 60 % (40-70)
[2021-08-26 05:41] LABS: MAN.DIFF COMMENT-IMPRESSION MANUAL DIFFERENTIAL
[2021-08-26 05:43] LABS: PLATELET MORPHOLOGY COMMENT DECREASED
[2021-08-26] MEDS: METRONIDAZOLE 500 MG TABLET PO SCH ×2 (05:44→14:12)
[2021-08-26 05:47] LABS: MAGNESIUM 2.2 mg/dL (1.80-2.40); PHOSPHORUS 5.8 mg/dL (2.5-4.9); POTASSIUM 4.5 mmol/L (3.5-5.1); THYROID STIMULATING HORMONE 0.82 uIU/mL (0.36-3.74)
[2021-08-26 05:48] LABS: CREATININE 9.1 mg/dL (0.5-1.5)
[2021-08-26 08:00] VITALS: BP 144/58
[2021-08-26] MEDS: METOPROLOL TARTRATE 25 MG TAB PO SCH (10:12)
[2021-08-26] MEDS: PANTOPRAZOLE 40 MG/VIAL IVP SCH (10:13)
[2021-08-26 12:00] VITALS: BP 142/54
[2021-08-26] MEDS ORDERED: METO-391 PO (13:15)
[2021-08-26] MEDS ORDERED: PANT40TA55 PO (13:15)
== END 2021-08-26 15:00 | disposition home or self-care (01) | DRG 871 ==
LOC: EDH 14:15 → EDHIP 18:50 → 2CH 08-19 17:38 → 3DH 08-21 21:04
PROVIDERS: ADMIT Internal Medicine Nephrology; ATTEND Internal Medicine Nephrology
PROC: 30233N1 Transfusion of Nonautologous Red Blood Cells into Peripheral Vein, Percutaneous Approach (ICD-10-PCS; 2021-08-18)
PROC: 5A1D70Z Performance of Urinary Filtration, Intermittent, Less than 6 Hours Per Day (ICD-10-PCS; 2021-08-19)
PROC: 0DJ08ZZ Inspection of Upper Intestinal Tract, Via Natural or Artificial Opening Endoscopic (ICD-10-PCS; principal; 2021-08-20)
PROC: 5A1D70Z Performance of Urinary Filtration, Intermittent, Less than 6 Hours Per Day (ICD-10-PCS; 2021-08-20)
PROC: 5A1D70Z Performance of Urinary Filtration, Intermittent, Less than 6 Hours Per Day (ICD-10-PCS; 2021-08-23)
PROC: 5A1D70Z Performance of Urinary Filtration, Intermittent, Less than 6 Hours Per Day (ICD-10-PCS; 2021-08-25)
DX: A41.9 Sepsis, unspecified organism (principal); N18.6 End stage renal disease; K29.71 Gastritis, unspecified, with bleeding; D62 Acute posthemorrhagic anemia; L97.409 Non-pressure chronic ulcer of unspecified heel and midfoot with unspecified severity; I12.0 Hypertensive chronic kidney disease with stage 5 chronic kidney disease or end stage renal disease; I85.00 Esophageal varices without bleeding; Z68.41 Body mass index [BMI] 40.0-44.9, adult; E11.621 Type 2 diabetes mellitus with foot ulcer; E11.610 Type 2 diabetes mellitus with diabetic neuropathic arthropathy; E11.51 Type 2 diabetes mellitus with diabetic peripheral angiopathy without gangrene; E11.22 Type 2 diabetes mellitus with diabetic chronic kidney disease; L97.519 Non-pressure chronic ulcer of other part of right foot with unspecified severity; I86.4 Gastric varices; E78.00 Pure hypercholesterolemia, unspecified; E78.5 Hyperlipidemia, unspecified; E83.39 Other disorders of phosphorus metabolism; E86.1 Hypovolemia; I48.0 Paroxysmal atrial fibrillation; D69.6 Thrombocytopenia, unspecified; K52.9 Noninfective gastroenteritis and colitis, unspecified; K64.8 Other hemorrhoids; K74.60 Unspecified cirrhosis of liver; E66.9 Obesity, unspecified; Z99.2 Dependence on renal dialysis; Z79.899 Other long term (current) drug therapy; Z87.891 Personal history of nicotine dependence; Z89.439 Acquired absence of unspecified foot; N49.3 Fournier gangrene
CPT/HCPCS: 36415; 36430; 43235; 71045; 76700; 80048; 80053; 80074; 80076; 82550; 82948; 83605; 83735; 83874; 84100; 84443; 84484; 85014; 85018; 85025; 85027; 85610; 85730; 86850; 86900; 86901; 86922; 86923; 87040; 87507; 90935; 93005; C9113; G0378; J2354; J2405; J2704; J3010; J3370; J3490; J7030; J7050; P9016

== ENCOUNTER 2021-11-14 22:22 | Inpatient (IN) | payer MEDICARE ==
[~2021-11-14] VITALS: Ht 177.8 cm; Wt 130.0 kg
[~2021-11-14 22:22] MED LIST changes: -FOLI0.8T22 PO; +FOLI1TAB85 PO; -HYDR-3420 PO; +METO-391 PO; -METO25TA6 PO; +PANT40TA55 PO; +SIMV-43 PO; -SIMV40TA59 PO
[2021-11-14 23:04] LABS: BASOPHILS % (AUTO) 0.7 % (0.0-5.0); EOSINOPHILS % (AUTO) 4.7 % (0.0-8.0); HEMATOCRIT 29.3 % (42-54); MEAN CORPUSCULAR HEMOGLOBIN 30.1 pg (27.0-33.0); MEAN CORPUSCULAR HGB CONC 32.8 g/dL (32.0-36.0); MEAN CORPUSCULAR VOLUME 91.8 fL (79-99); MONOCYTES % (AUTO) 8.4 % (3.0-13.0); NEUTROPHILS % (AUTO) 68.7 % (40.0-77.0); PLATELET COUNT (AUTO) 42 K/uL (130-400); RED BLOOD CELL COUNT(AUTO) 3.19 MIL/uL (4.50-6.20); RED CELL DISTRIBUTION WIDTH 17.5 % (11.0-15.5); WHITE BLOOD COUNT (AUTO) 4.1 K/uL (4.8-10.8)
[2021-11-14 23:21] LABS: ALBUMIN 3.5 g/dL (3.5-5.0); BILIRUBIN,TOTAL 0.8 mg/dL (0.2-1.0); TOTAL PROTEIN, SERUM 7.6 g/dL (6.0-8.3)
[2021-11-14 23:30] LABS: CREATININE 10.2 mg/dL (0.5-1.5)
[2021-11-14 23:43] LABS: B-TYPE NATRIURETIC PEPTIDE 1440 pg/mL (0-100)
[2021-11-15] VITALS (16 sets, daily range): BP systolic 132–170; BP diastolic 37–86
[2021-11-15] MEDS ORDERED: NITROGLYCERIN 0.4 MG SL TAB SL PRN
[2021-11-15] MEDS ORDERED: ACETAMINOPHEN 325 MG TAB PO PRN ×2
[2021-11-15] MEDS ORDERED: MORPHINE 4 MG SYG IV PRN
[2021-11-15] MEDS ORDERED: LACTULOSE 20 GM/30 ML UDCUP PO PRN
[2021-11-15] MEDS ORDERED: GUAIFENESIN-DM 200/20 MG 10 ML PO PRN
[2021-11-15] MEDS ORDERED: ZOLPIDEM TARTRATE 5 MG TAB PO PRN
[2021-11-15] MEDS ORDERED: ONDANSETRON 4MG INJ IV PRN
[2021-11-15] MEDS ORDERED: MAG/ALUM/SIMETH 30 ML UDCUP PO PRN
[2021-11-15] MEDS ORDERED: HYDRALAZINE 20MG/ML VIAL IV PRN
[2021-11-15] MEDS ORDERED: ASPIRIN 325MG EC TAB PO ONE
[2021-11-15] MEDS ORDERED: ACETAMINOPHEN WITH CODEINE 1 TAB TAB PO PRN
[2021-11-15] MEDS ORDERED: ASPIRIN 325MG TAB ONE (01:10)
[2021-11-15] MEDS ORDERED: FUROSEMIDE 40MG VIAL IV ONE (03:30)
[2021-11-15] MEDS ORDERED: FUROSEMIDE 40MG VIAL ONE (05:24)
[2021-11-15] MEDS: INSULIN HUMULIN R 100 UNIT/ML 3ML SQ SCH ×4 (07:30→21:00)
[2021-11-15] MEDS ORDERED: METO-391 PO (08:09)
[2021-11-15] MEDS ORDERED: SIMVASTATIN 20 MG TABLET PO SCH (09:00)
[2021-11-15] MEDS ORDERED: Vitamin B Complex/Vit C/Folic Acid PO SCH (09:00)
[2021-11-15] MEDS ORDERED: FAMOTIDINE 20MG TAB PO SCH (09:00)
[2021-11-15] MEDS: PANTOPRAZOLE 40 MG/VIAL IVP SCH (10:07)
[2021-11-15] MEDS: SEVELAMER HCL 800 MG TABLET PO SCH ×2 (13:05→17:47)
[2021-11-15] MEDS: PANTOPRAZOLE 40 MG TAB DR PO SCH (17:00)
[2021-11-15] MEDS ORDERED: ATORVASTATIN 20 MG TABLET PO SCH (21:00)
[2021-11-16] VITALS (13 sets, daily range): BP systolic 139–165; BP diastolic 45–90
[2021-11-16 03:43] LABS: BASOPHILS % (AUTO) 0.4 % (0.0-5.0); EOSINOPHILS % (AUTO) 6.4 % (0.0-8.0); HEMATOCRIT 24.8 % (42-54); LYMPHOCYTES % (AUTO) 20.5 % (21.0-51.0); MEAN CORPUSCULAR HEMOGLOBIN 30.2 pg (27.0-33.0); MEAN CORPUSCULAR HGB CONC 33.5 g/dL (32.0-36.0); MEAN CORPUSCULAR VOLUME 90.2 fL (79-99); MONOCYTES % (AUTO) 12.8 % (3.0-13.0); NEUTROPHILS % (AUTO) 59.5 % (40.0-77.0); PLATELET COUNT (AUTO) 30 K/uL (130-400); RED BLOOD CELL COUNT(AUTO) 2.75 MIL/uL (4.50-6.20); RED CELL DISTRIBUTION WIDTH 17.1 % (11.0-15.5); WHITE BLOOD COUNT (AUTO) 2.3 K/uL (4.8-10.8)
[2021-11-16 03:53] LABS: HEMOGLOBIN A1C 5.7 % (4.0-6.0)
[2021-11-16 04:04] LABS: ALBUMIN 3.1 g/dL (3.5-5.0); BILIRUBIN,TOTAL 0.8 mg/dL (0.2-1.0); MAGNESIUM 2.2 mg/dL (1.80-2.40); PHOSPHORUS 4.3 mg/dL (2.5-4.9); POTASSIUM 4.1 mmol/L (3.5-5.1); THYROID STIMULATING HORMONE 1.14 uIU/mL (0.36-3.74); TOTAL PROTEIN, SERUM 6.7 g/dL (6.0-8.3)
[2021-11-16 04:05] LABS: CREATININE 8.9 mg/dL (0.5-1.5)
[2021-11-16 04:44] LABS: BASOPHILS % (MANUAL) 1 % (0-2); EOSINOPHILS % (MANUAL) 4 % (1-6); LYMPHOCYTES % (MANUAL) 20 % (22-44); MONOCYTES % (MANUAL) 5 % (2-9); SEGMENTED NEUTROPHILS % 70 % (40-70)
[2021-11-16 04:45] LABS: MAN.DIFF COMMENT-IMPRESSION MANUAL DIFFERENTIAL; PLATELET MORPHOLOGY COMMENT MARKED DECREASE
[2021-11-16] MEDS: INSULIN HUMULIN R 100 UNIT/ML 3ML SQ SCH ×4 (06:33→21:00)
[2021-11-16] MEDS: Vitamin B Complex/Vit C/Folic Acid PO SCH (08:59)
[2021-11-16] MEDS: SEVELAMER HCL 800 MG TABLET PO SCH ×3 (08:59→17:00)
[2021-11-16] MEDS: PANTOPRAZOLE 40 MG/VIAL IVP SCH (08:59)
[2021-11-16] MEDS ORDERED: ASPIRIN 81 MG EC TAB PO SCH (09:00)
[2021-11-16] MEDS ORDERED: HYDROXYZINE 25 MG TABLET PO SCH (10:28)
[2021-11-16] MEDS ORDERED: HYDROXYZINE 25 MG TABLET PO PRN (10:30)
[2021-11-16] MEDS ORDERED: METOPROLOL TARTRATE 1 MG/ML 5ML VIAL IV PRN (16:30)
[2021-11-16] MEDS: PANTOPRAZOLE 40 MG TAB DR PO SCH (17:00)
[2021-11-16] MEDS: CARVEDILOL 12.5 MG TABLET PO SCH (22:03)
[2021-11-16] MEDS: SACUBITRIL/VALSARTAN 1 EACH TABLET PO SCH (22:03)
[2021-11-16] MEDS: SIMVASTATIN 20 MG TABLET PO SCH (22:04)
[2021-11-17] VITALS (21 sets, daily range): BP systolic 103–155; BP diastolic 50–77
[2021-11-17 05:04] LABS: HEMATOCRIT 25.5 % (42-54); MEAN CORPUSCULAR HEMOGLOBIN 29.5 pg (27.0-33.0); MEAN CORPUSCULAR HGB CONC 32.5 g/dL (32.0-36.0); MEAN CORPUSCULAR VOLUME 90.7 fL (79-99); PLATELET COUNT (AUTO) 28 K/uL (130-400); RED BLOOD CELL COUNT(AUTO) 2.81 MIL/uL (4.50-6.20); RED CELL DISTRIBUTION WIDTH 17.3 % (11.0-15.5); WHITE BLOOD COUNT (AUTO) 2.2 K/uL (4.8-10.8)
[2021-11-17 05:12] LABS: POTASSIUM 4.1 mmol/L (3.5-5.1)
[2021-11-17 05:21] LABS: CREATININE 8.9 mg/dL (0.5-1.5)
[2021-11-17 05:32] LABS: LYMPHOCYTES % (MANUAL) 20 % (22-44); MAN.DIFF COMMENT-IMPRESSION MANUAL DIFFERENTIAL; MONOCYTES % (MANUAL) 8 % (2-9); PLATELET MORPHOLOGY COMMENT MARKED DECREASE; SEGMENTED NEUTROPHILS % 72 % (40-70)
[2021-11-17] MEDS: INSULIN HUMULIN R 100 UNIT/ML 3ML SQ SCH ×4 (06:39→21:00)
[2021-11-17] MEDS: Vitamin B Complex/Vit C/Folic Acid PO SCH (09:05)
[2021-11-17] MEDS: SEVELAMER HCL 800 MG TABLET PO SCH ×3 (09:05→16:57)
[2021-11-17] MEDS: PANTOPRAZOLE 40 MG/VIAL IVP SCH (09:07)
[2021-11-17] MEDS: CARVEDILOL 12.5 MG TABLET PO SCH ×2 (09:07→21:44)
[2021-11-17] MEDS: SACUBITRIL/VALSARTAN 1 EACH TABLET PO SCH ×2 (09:08→21:44)
[2021-11-17] MEDS ORDERED: LACTULOSE 20 GM/30 ML UDCUP PR SCH ×2 (11:26→12:00)
[2021-11-17] MEDS ORDERED: RIFAXIMIN 550 MG TABLET PO SCH (11:30)
[2021-11-17] MEDS: LACTULOSE 20 GM/30 ML UDCUP PO SCH ×3 (11:59→23:30)
[2021-11-17] MEDS: RIFAXIMIN 550 MG TABLET PO SCH ×2 (11:59→21:31)
[2021-11-17] MEDS: PANTOPRAZOLE 40 MG TAB DR PO SCH (16:57)
[2021-11-17] MEDS ORDERED: EPOETIN ALFA-EPBX (ESRD) 10,000 UNIT/ML VIAL SQ SCH (21:00)
[2021-11-17] MEDS: SIMVASTATIN 20 MG TABLET PO SCH (21:31)
[2021-11-18 00:12] VITALS: BP_SYST 120; BP_SYST 128; BP_SYST 129; BP_DIAS 60; BP_DIAS 63
[2021-11-18 04:12] VITALS: BP 117/56
[2021-11-18 04:35] LABS: EOSINOPHILS % (AUTO) 3.4 % (0.0-8.0); LYMPHOCYTES % (AUTO) 21.3 % (21.0-51.0); MEAN CORPUSCULAR HEMOGLOBIN 29.7 pg (27.0-33.0); MEAN CORPUSCULAR HGB CONC 32.2 g/dL (32.0-36.0); MEAN CORPUSCULAR VOLUME 92.2 fL (79-99); NEUTROPHILS % (AUTO) 61.3 % (40.0-77.0); PLATELET COUNT (AUTO) 25 K/uL (130-400); RED BLOOD CELL COUNT(AUTO) 2.93 MIL/uL (4.50-6.20); RED CELL DISTRIBUTION WIDTH 17.2 % (11.0-15.5); WHITE BLOOD COUNT (AUTO) 2.1 K/uL (4.8-10.8)
[2021-11-18 04:55] LABS: ALBUMIN 2.8 g/dL (3.5-5.0); BILIRUBIN,TOTAL 0.7 mg/dL (0.2-1.0); CREATININE 7.5 mg/dL (0.5-1.5); POTASSIUM 4.4 mmol/L (3.5-5.1); TOTAL PROTEIN, SERUM 6.3 g/dL (6.0-8.3)
[2021-11-18] MEDS: LACTULOSE 20 GM/30 ML UDCUP PO SCH ×2 (05:30→11:38)
[2021-11-18 05:43] LABS: BASOPHILS % (MANUAL) 4 % (0-2); EOSINOPHILS % (MANUAL) 4 % (1-6); LYMPHOCYTES % (MANUAL) 32 % (22-44); MAN.DIFF COMMENT-IMPRESSION MANUAL DIFFERENTIAL; MONOCYTES % (MANUAL) 4 % (2-9); SEGMENTED NEUTROPHILS % 56 % (40-70)
[2021-11-18 05:44] LABS: PLATELET MORPHOLOGY COMMENT MARKED DECREASE
[2021-11-18] MEDS: INSULIN HUMULIN R 100 UNIT/ML 3ML SQ SCH ×3 (07:30→16:30)
[2021-11-18 07:45] VITALS: BP_SYST 100; BP_SYST 123; BP_DIAS 55; BP_DIAS 58; BP_DIAS 70
[2021-11-18] MEDS: SEVELAMER HCL 800 MG TABLET PO SCH ×3 (08:00→17:00)
[2021-11-18] MEDS ORDERED: REGADENOSON 0.4 MG/5 ML PF SYG IVP SCH (08:00)
[2021-11-18] MEDS ORDERED: SIMV-43 PO (09:49)
[2021-11-18] MEDS ORDERED: CARV12.580 PO (09:49)
[2021-11-18] MEDS ORDERED: SACU1TAB PO (09:49)
[2021-11-18 11:00] VITALS: BP 125/68
[2021-11-18] MEDS: SACUBITRIL/VALSARTAN 1 EACH TABLET PO SCH (11:38)
[2021-11-18] MEDS: Vitamin B Complex/Vit C/Folic Acid PO SCH (11:38)
[2021-11-18] MEDS: PANTOPRAZOLE 40 MG/VIAL IVP SCH (11:38)
[2021-11-18] MEDS: CARVEDILOL 12.5 MG TABLET PO SCH (11:38)
[2021-11-18] MEDS: RIFAXIMIN 550 MG TABLET PO SCH (11:38)
[2021-11-18 16:00] VITALS: BP 127/62
[2021-11-18] MEDS ORDERED: LACT10SO9 PO (16:25)
[2021-11-18] MEDS ORDERED: RIFA550T PO (16:25)
[2021-11-18] MEDS: PANTOPRAZOLE 40 MG TAB DR PO SCH (17:00)
== END 2021-11-18 18:00 | disposition home or self-care (01) | DRG 280 ==
LOC: EDH 22:22 → EDHIP 11-15 → 4AH 11-15 18:15
PROVIDERS: ADMIT Internal Medicine; ATTEND Internal Medicine
PROC: 5A1D70Z Performance of Urinary Filtration, Intermittent, Less than 6 Hours Per Day (ICD-10-PCS; principal; 2021-11-15)
PROC: 5A1D70Z Performance of Urinary Filtration, Intermittent, Less than 6 Hours Per Day (ICD-10-PCS; 2021-11-16)
PROC: 5A1D70Z Performance of Urinary Filtration, Intermittent, Less than 6 Hours Per Day (ICD-10-PCS; 2021-11-17)
DX: I13.2 Hypertensive heart and chronic kidney disease with heart failure and with stage 5 chronic kidney disease, or end stage renal disease (principal); N18.6 End stage renal disease; I21.A1 Myocardial infarction type 2; I50.43 Acute on chronic combined systolic (congestive) and diastolic (congestive) heart failure; J96.01 Acute respiratory failure with hypoxia; Z68.41 Body mass index [BMI] 40.0-44.9, adult; D61.818 Other pancytopenia; K74.60 Unspecified cirrhosis of liver; K72.90 Hepatic failure, unspecified without coma; I42.0 Dilated cardiomyopathy; D63.1 Anemia in chronic kidney disease; E11.22 Type 2 diabetes mellitus with diabetic chronic kidney disease; E11.51 Type 2 diabetes mellitus with diabetic peripheral angiopathy without gangrene; E66.01 Morbid (severe) obesity due to excess calories; E78.5 Hyperlipidemia, unspecified; J45.909 Unspecified asthma, uncomplicated; D69.6 Thrombocytopenia, unspecified; E78.00 Pure hypercholesterolemia, unspecified; Z60.2 Problems related to living alone; Z20.822 Contact with and (suspected) exposure to COVID-19; I48.0 Paroxysmal atrial fibrillation; M71.22 Synovial cyst of popliteal space [Baker], left knee; I08.1 Rheumatic disorders of both mitral and tricuspid valves; Z99.2 Dependence on renal dialysis; Z89.412 Acquired absence of left great toe; Z89.411 Acquired absence of right great toe; Z79.899 Other long term (current) drug therapy; Z87.891 Personal history of nicotine dependence; Z91.19 Patient's noncompliance with other medical treatment and regimen; Z83.3 Family history of diabetes mellitus; Z82.49 Family history of ischemic heart disease and other diseases of the circulatory system; Z83.42 Family history of familial hypercholesterolemia; Z82.5 Family history of asthma and other chronic lower respiratory diseases
CPT/HCPCS: 36415; 70450; 71045; 71250; 76705; 78452; 80048; 80053; 82140; 82550; 82948; 83036; 83735; 83880; 84100; 84443; 84484; 85025; 86704; 86706; 86850; 86900; 86901; 87340; 87635; 87804; 90935; 93005; 93017; 93306; 93356; 93970; 96374; A9500; C9113; C9803; G0378; J1940; J2785

== ENCOUNTER 2021-12-27 14:06 | Inpatient (IN) | payer MEDICARE ==
[~2021-12-27] VITALS: Ht 177.8 cm; Wt 131.8 kg
[~2021-12-27 14:06] MED LIST changes: +CARV12.580 PO; +LACT10SO9 PO; -METO-391 PO; +RIFA550T PO; +SACU1TAB PO
[2021-12-27 15:24] LABS: BASOPHILS % (AUTO) 0.6 % (0.0-5.0); EOSINOPHILS % (AUTO) 6.1 % (0.0-8.0); LYMPHOCYTES % (AUTO) 21.5 % (21.0-51.0); MEAN CORPUSCULAR HEMOGLOBIN 29.8 pg (27.0-33.0); MEAN CORPUSCULAR HGB CONC 29.8 g/dL (32.0-36.0); MONOCYTES % (AUTO) 7.4 % (3.0-13.0); NEUTROPHILS % (AUTO) 63.8 % (40.0-77.0); PLATELET COUNT (AUTO) 15 K/uL (130-400); RED BLOOD CELL COUNT(AUTO) 2.08 MIL/uL (4.50-6.20); RED CELL DISTRIBUTION WIDTH 17.8 % (11.0-15.5); WHITE BLOOD COUNT (AUTO) 1.6 K/uL (4.8-10.8)
[2021-12-27 15:34] LABS: CREATININE 5.4 mg/dL (0.5-1.5); POTASSIUM 4.8 mmol/L (3.5-5.1)
[2021-12-27 15:38] LABS: ALBUMIN 1.9 g/dL (3.5-5.0); BILIRUBIN,TOTAL 0.9 mg/dL (0.2-1.0); TOTAL PROTEIN, SERUM 6.3 g/dL (6.0-8.3)
[2021-12-27] MEDS ORDERED: HYDROCORTISONE 25 MG SUPPOSITORY PR SCH (15:50)
[2021-12-27 15:51] LABS: HEMATOCRIT 20.8 % (42-54)
[2021-12-27 16:29] LABS: PLATELET MORPHOLOGY COMMENT MARKED DECREASE
[2021-12-27] MEDS ORDERED: PANTOPRAZOLE 40 MG/VIAL IVP ONE (16:30)
[2021-12-27 16:36] LABS: INR 1.26 (0.85-1.15); PROTHROMBIN TIME 13.4 SEC (9.6-11.6)
[2021-12-27 16:37] LABS: PARTIAL THROMBOPLASTIN TIME 32.1 SEC (26.3-35.5)
[2021-12-27] MEDS ORDERED: PHARMACY COMMUNICATION MISC SCH ×2 (17:00→17:30)
[2021-12-27] MEDS ORDERED: OCTREOTIDE ACETATE 100 MCG/ML AMP IV SCH (17:00)
[2021-12-27] MEDS ORDERED: OCTREOTIDE ACETATE 1,250 MCG in 0.9% NACL 250ML 250 ML IV SCH (17:00)
[2021-12-27] MEDS: CEFTRIAXONE 2GM VIAL IVP SCH (22:26)
[2021-12-27] MEDS: PANTOPRAZOLE 40 MG/VIAL IVP SCH (22:26)
[2021-12-27 23:07] LABS: HEMATOCRIT 21.8 % (42-54)
[2021-12-28] MEDS ORDERED: 0.9% NACL 500ML IV.SOLN 500 ML IV ONE (00:37)
[2021-12-28] MEDS ORDERED: CHOL100046 PO (02:44)
[2021-12-28 03:24] VITALS: BP 131/44
[2021-12-28 04:51] LABS: HEMATOCRIT 23.3 % (42-54)
[2021-12-28 05:06] LABS: BILIRUBIN,TOTAL 1.4 mg/dL (0.2-1.0); CREATININE 6.2 mg/dL (0.5-1.5); POTASSIUM 4.9 mmol/L (3.5-5.1); TOTAL PROTEIN, SERUM 6.5 g/dL (6.0-8.3)
[2021-12-28 05:56] LABS: BASOPHILS % (AUTO) 1.4 % (0.0-5.0); EOSINOPHILS % (AUTO) 9.1 % (0.0-8.0); LYMPHOCYTES % (AUTO) 19.6 % (21.0-51.0); MEAN CORPUSCULAR HEMOGLOBIN 29.5 pg (27.0-33.0); MONOCYTES % (AUTO) 13.4 % (3.0-13.0); PLATELET COUNT (AUTO) 21 K/uL (130-400); RED BLOOD CELL COUNT(AUTO) 2.41 MIL/uL (4.50-6.20); RED CELL DISTRIBUTION WIDTH 17.6 % (11.0-15.5); WHITE BLOOD COUNT (AUTO) 2.1 K/uL (4.8-10.8)
[2021-12-28 05:57] LABS: HEMATOCRIT 23.3 % (42-54)
[2021-12-28 07:30] VITALS: BP 147/54
[2021-12-28] MEDS: PANTOPRAZOLE 40 MG/VIAL IVP SCH ×2 (10:00→20:17)
[2021-12-28 11:00] VITALS: BP 131/49
[2021-12-28 11:21] LABS: HEMATOCRIT 27.9 % (42-54)
[2021-12-28 15:30] VITALS: BP 137/43
[2021-12-28 16:35] LABS: HEMATOCRIT 26.4 % (42-54)
[2021-12-28] MEDS: CEFTRIAXONE 2GM VIAL IVP SCH (17:55)
[2021-12-28] MEDS ORDERED: KETOROLAC 15MG/ML VIAL (15MG/ML) IM PRN (18:00)
[2021-12-28] MEDS ORDERED: TRAMADOL HCL 50 MG TABLET PO PRN ×2 (20:00)
[2021-12-28] MEDS: LACTULOSE 20 GM/30 ML UDCUP PO SCH (20:17)
[2021-12-28 20:35] VITALS: BP 136/52
[2021-12-28 23:06] LABS: HEMATOCRIT 24.3 % (42-54)
[2021-12-29] VITALS (21 sets, daily range): BP systolic 101–158; BP diastolic 36–86
[2021-12-29 03:45] LABS: BASOPHILS % (AUTO) 0.5 % (0.0-5.0); EOSINOPHILS % (AUTO) 9.1 % (0.0-8.0); HEMATOCRIT 23.7 % (42-54); LYMPHOCYTES % (AUTO) 23.1 % (21.0-51.0); MEAN CORPUSCULAR HEMOGLOBIN 29.4 pg (27.0-33.0); MEAN CORPUSCULAR HGB CONC 30.4 g/dL (32.0-36.0); MEAN CORPUSCULAR VOLUME 96.7 fL (79-99); MONOCYTES % (AUTO) 8.1 % (3.0-13.0); NEUTROPHILS % (AUTO) 58.7 % (40.0-77.0); PLATELET COUNT (AUTO) 26 K/uL (130-400); RED BLOOD CELL COUNT(AUTO) 2.45 MIL/uL (4.50-6.20); RED CELL DISTRIBUTION WIDTH 17.8 % (11.0-15.5); WHITE BLOOD COUNT (AUTO) 1.9 K/uL (4.8-10.8)
[2021-12-29 04:00] LABS: % IRON SATURATION 37.2 % (30-44)
[2021-12-29 04:09] LABS: ALBUMIN 2.1 g/dL (3.5-5.0); BILIRUBIN,DIRECT 0.4 mg/dL (0.0-0.3); BILIRUBIN,TOTAL 0.8 mg/dL (0.2-1.0); CREATININE 7.8 mg/dL (0.5-1.5); MAGNESIUM 2.2 mg/dL (1.80-2.40); PHOSPHORUS 4.6 mg/dL (2.5-4.9); POTASSIUM 5.9 mmol/L (3.5-5.1); THYROID STIMULATING HORMONE 2.33 uIU/mL (0.36-3.74); TOTAL PROTEIN, SERUM 6.6 g/dL (6.0-8.3)
[2021-12-29] MEDS ORDERED: EPOETIN ALFA-EPBX (ESRD) 10,000 UNIT/ML VIAL SQ ONE (08:00)
[2021-12-29] MEDS ORDERED: VANCOMYCIN PROTOCOL PER PHARMACY IV PRN (10:00)
[2021-12-29] MEDS ORDERED: COMPOUND IV REFRIGERATED 1 EACH IVSOLN MISC PRN (10:00)
[2021-12-29] MEDS ORDERED: RENAL DOSE IV SCH (10:00)
[2021-12-29] MEDS: EPOETIN ALFA-EPBX (NON-ESRD) 10,000 UNIT/ML VIAL SQ SCH ×2 (10:00→13:02)
[2021-12-29] MEDS ORDERED: VANCOMYCIN 1.25GM/NS 250ML IVPB SCH ×2 (10:00)
[2021-12-29] MEDS: THIAMINE HCL 100 MG TABLET PO SCH (10:08)
[2021-12-29] MEDS: PANTOPRAZOLE 40 MG/VIAL IVP SCH ×2 (10:08→21:00)
[2021-12-29] MEDS: FOLIC ACID 1 MG TABLET PO SCH (10:08)
[2021-12-29] MEDS: LACTULOSE 20 GM/30 ML UDCUP PO SCH ×2 (10:08→21:00)
[2021-12-29] MEDS: Vitamin B Complex/Vit C/Folic Acid PO SCH (10:08)
[2021-12-29] MEDS: SEVELAMER HCL 800 MG TABLET PO SCH ×3 (10:11→17:51)
[2021-12-29] MEDS: MEROPENEM 500 MG VIAL IV SCH ×2 (10:17→21:00)
[2021-12-29 10:43] LABS: HEMATOCRIT 22.9 % (42-54)
[2021-12-29] MEDS: HEPARIN 5,000 UNIT VIAL IRRIG SCH (15:03)
[2021-12-29 16:44] LABS: HEMATOCRIT 23.5 % (42-54)
[2021-12-29] MEDS ORDERED: 0.9%NACL 10ML VIAL ONE (20:40)
[2021-12-29 22:54] LABS: HEMATOCRIT 22.1 % (42-54)
[2021-12-30] VITALS: BP 124/41
[2021-12-30 04:00] VITALS: BP 127/47
[2021-12-30 04:51] LABS: HEMATOCRIT 21.6 % (42-54)
[2021-12-30 07:38] LABS: CREATININE 7.3 mg/dL (0.5-1.5); PHOSPHORUS 4.4 mg/dL (2.5-4.9); POTASSIUM 5.2 mmol/L (3.5-5.1)
[2021-12-30 07:47] LABS: MEAN CORPUSCULAR HEMOGLOBIN 30.8 pg (27.0-33.0); MEAN CORPUSCULAR HGB CONC 32.1 g/dL (32.0-36.0); PLATELET COUNT (AUTO) 38 K/uL (130-400); RED BLOOD CELL COUNT(AUTO) 2.27 MIL/uL (4.50-6.20); RED CELL DISTRIBUTION WIDTH 17.6 % (11.0-15.5); WHITE BLOOD COUNT (AUTO) 2.1 K/uL (4.8-10.8)
[2021-12-30 07:50] VITALS: BP 147/39
[2021-12-30 08:05] LABS: EOSINOPHILS % (MANUAL) 9 % (1-6); LYMPHOCYTES % (MANUAL) 19 % (22-44); MAN.DIFF COMMENT-IMPRESSION MANUAL DIFFERENTIAL; MONOCYTES % (MANUAL) 4 % (2-9); SEGMENTED NEUTROPHILS % 68 % (40-70)
[2021-12-30 08:07] LABS: PLATELET MORPHOLOGY COMMENT MARKED DECREASE
[2021-12-30] MEDS ORDERED: COMPOUND IV REFRIGERATED 1 EACH IVSOLN MISC PRN (08:30)
[2021-12-30] MEDS: FOLIC ACID 1 MG TABLET PO SCH (09:27)
[2021-12-30] MEDS: PANTOPRAZOLE 40 MG/VIAL IVP SCH ×2 (09:27→20:58)
[2021-12-30] MEDS: THIAMINE HCL 100 MG TABLET PO SCH (09:27)
[2021-12-30] MEDS: Vitamin B Complex/Vit C/Folic Acid PO SCH (09:27)
[2021-12-30] MEDS: LACTULOSE 20 GM/30 ML UDCUP PO SCH ×2 (09:27→20:56)
[2021-12-30] MEDS: MEROPENEM 500 MG VIAL IV SCH ×2 (09:27→20:55)
[2021-12-30] MEDS: SEVELAMER HCL 800 MG TABLET PO SCH ×3 (09:29→17:22)
[2021-12-30 11:00] VITALS: BP 164/52
[2021-12-30] MEDS: HEPARIN 5,000 UNIT VIAL IRRIG SCH (14:09)
[2021-12-30 15:50] VITALS: BP 135/38
[2021-12-30 19:50] VITALS: BP 160/42
[2021-12-30] MEDS ORDERED: 0.9%NACL 10ML VIAL ONE (20:25)
[2021-12-31] VITALS (32 sets, daily range): BP systolic 109–195; BP diastolic 27–146
[2021-12-31 04:33] LABS: HEMATOCRIT 25.7 % (42-54); MEAN CORPUSCULAR HEMOGLOBIN 29.9 pg (27.0-33.0); MEAN CORPUSCULAR HGB CONC 31.1 g/dL (32.0-36.0); MEAN CORPUSCULAR VOLUME 95.9 fL (79-99); PLATELET COUNT (AUTO) 46 K/uL (130-400); RED BLOOD CELL COUNT(AUTO) 2.68 MIL/uL (4.50-6.20); RED CELL DISTRIBUTION WIDTH 17.4 % (11.0-15.5); WHITE BLOOD COUNT (AUTO) 2.5 K/uL (4.8-10.8)
[2021-12-31 04:49] LABS: ALBUMIN 2.1 g/dL (3.5-5.0); CRP QUANTITATIVE 29.2 mg/L (0.00-9.0); POTASSIUM 5.5 mmol/L (3.5-5.1); TOTAL PROTEIN, SERUM 6.7 g/dL (6.0-8.3)
[2021-12-31 05:25] LABS: BAND NEUTROPHILS % (MANUAL) 4 % (0-2); LYMPHOCYTES % (MANUAL) 12 % (22-44); MAN.DIFF COMMENT-IMPRESSION MANUAL DIFFERENTIAL; MONOCYTES % (MANUAL) 20 % (2-9); PLATELET MORPHOLOGY COMMENT DECREASED; SEGMENTED NEUTROPHILS % 64 % (40-70)
[2021-12-31 05:36] LABS: CREATININE 9.2 mg/dL (0.5-1.5)
[2021-12-31 05:51] LABS: ERYTHROCYTE SEDIMENTATION RATE 80 MM/HR (0-20)
[2021-12-31] MEDS: LACTULOSE 20 GM/30 ML UDCUP PO SCH ×2 (09:00→20:42)
[2021-12-31] MEDS: MEROPENEM 500 MG VIAL IV SCH ×2 (10:17→20:42)
[2021-12-31] MEDS: PANTOPRAZOLE 40 MG/VIAL IVP SCH ×2 (10:17→20:42)
[2021-12-31] MEDS: THIAMINE HCL 100 MG TABLET PO SCH (10:17)
[2021-12-31] MEDS: FOLIC ACID 1 MG TABLET PO SCH (10:17)
[2021-12-31] MEDS: Vitamin B Complex/Vit C/Folic Acid PO SCH (10:17)
[2021-12-31] MEDS: SEVELAMER HCL 800 MG TABLET PO SCH ×3 (10:17→17:00)
[2021-12-31] MEDS: PROPRANOLOL HCL 20 MG TAB PO SCH ×2 (10:17→20:49)
[2021-12-31] MEDS ORDERED: DEXTROSE 50%-WATER 50 ML DISP.SYRIN IV ONE (11:29)
[2021-12-31] MEDS ORDERED: GLYCOPYRROLATE 1 MG/5 ML SYRINGE ONE (11:50)
[2021-12-31] MEDS ORDERED: KETAMINE 50MG/ML SYRINGE 50 MG/ML DISP.SYRIN IV ONE (11:50)
[2021-12-31] MEDS ORDERED: PROPOFOL 10 MG/ML 20ML VIAL IV ONE (12:14)
[2021-12-31] MEDS ORDERED: LIDOCAINE PF 100MG/5ML (2%) SYRINGE 5ML ONE (12:23)
[2021-12-31] MEDS ORDERED: ROCURONIUM 10MG/1ML SYR 10 MG/ML ML ONE (13:11)
[2021-12-31] MEDS ORDERED: ESMOLOL HCL 10 MG/ML 10 ML VIAL ONE (13:13)
[2021-12-31] MEDS: HEPARIN 5,000 UNIT VIAL IRRIG SCH ×2 (14:28→19:40)
[2021-12-31] MEDS ORDERED: VANCOMYCIN 1.25GM/NS 250ML IVPB SCH ×6 (15:00→21:00)
== END 2021-12-31 23:53 | DRG 377 ==
LOC: EDH 14:06 → EDHIP 16:47 → 4DH 12-28 01:31
PROVIDERS: ADMIT Internal Medicine; ATTEND Internal Medicine
PROC: 30233R1 Transfusion of Nonautologous Platelets into Peripheral Vein, Percutaneous Approach (ICD-10-PCS; 2021-12-27)
PROC: 30233N1 Transfusion of Nonautologous Red Blood Cells into Peripheral Vein, Percutaneous Approach (ICD-10-PCS; 2021-12-27)
PROC: 5A1D70Z Performance of Urinary Filtration, Intermittent, Less than 6 Hours Per Day (ICD-10-PCS; 2021-12-28)
PROC: 5A1D70Z Performance of Urinary Filtration, Intermittent, Less than 6 Hours Per Day (ICD-10-PCS; 2021-12-29)
PROC: 0DJ08ZZ Inspection of Upper Intestinal Tract, Via Natural or Artificial Opening Endoscopic (ICD-10-PCS; principal; 2021-12-31)
PROC: 5A1D70Z Performance of Urinary Filtration, Intermittent, Less than 6 Hours Per Day (ICD-10-PCS; 2021-12-31)
DX: K29.71 Gastritis, unspecified, with bleeding (principal); N18.6 End stage renal disease; E43 Unspecified severe protein-calorie malnutrition; D62 Acute posthemorrhagic anemia; D68.9 Coagulation defect, unspecified; I13.2 Hypertensive heart and chronic kidney disease with heart failure and with stage 5 chronic kidney disease, or end stage renal disease; K76.6 Portal hypertension; M86.8X7 Other osteomyelitis, ankle and foot; D61.818 Other pancytopenia; L97.419 Non-pressure chronic ulcer of right heel and midfoot with unspecified severity; Z68.41 Body mass index [BMI] 40.0-44.9, adult; R18.8 Other ascites; L03.116 Cellulitis of left lower limb; L03.115 Cellulitis of right lower limb; E11.51 Type 2 diabetes mellitus with diabetic peripheral angiopathy without gangrene; E11.22 Type 2 diabetes mellitus with diabetic chronic kidney disease; Z99.2 Dependence on renal dialysis; D73.1 Hypersplenism; E11.621 Type 2 diabetes mellitus with foot ulcer; E11.69 Type 2 diabetes mellitus with other specified complication; F10.10 Alcohol abuse, uncomplicated; E87.5 Hyperkalemia; E78.5 Hyperlipidemia, unspecified; E66.01 Morbid (severe) obesity due to excess calories; I95.9 Hypotension, unspecified; I85.10 Secondary esophageal varices without bleeding; I25.10 Atherosclerotic heart disease of native coronary artery without angina pectoris; I48.0 Paroxysmal atrial fibrillation; K74.60 Unspecified cirrhosis of liver; I50.9 Heart failure, unspecified; R53.81 Other malaise; I86.4 Gastric varices; K64.2 Third degree hemorrhoids; M60.9 Myositis, unspecified; L97.529 Non-pressure chronic ulcer of other part of left foot with unspecified severity; Z20.822 Contact with and (suspected) exposure to COVID-19; Z86.16 Personal history of COVID-19; Z74.01 Bed confinement status; Z83.3 Family history of diabetes mellitus; Z91.19 Patient's noncompliance with other medical treatment and regimen; Z79.899 Other long term (current) drug therapy
CPT/HCPCS: 36415; 43235; 73630; 73700; 73718; 80048; 80053; 80076; 80202; 82140; 82270; 82607; 82746; 82948; 82977; 83010; 83540; 83550; 83605; 83615; 83735; 84100; 84132; 84145; 84443; 84484; 85014; 85018; 85025; 85027; 85045; 85610; 85651; 85730; 86140; 86704; 86706; 86850; 86900; 86901; 86923; 87340; 90935; 93005; 93925; 93971; 99291; A4606; C9113; G0378; J0696; J1644; J1885; J2001; J2185; J2354; J2704; J3370; J3490; J7040; J7050; J7070; P9016; P9034

== ENCOUNTER 2022-01-30 12:11 | Inpatient (IN) | payer MEDICARE ==
[~2022-01-30] VITALS: Ht 177.8 cm; Wt 131.5 kg
[~2022-01-30 12:11] MED LIST changes: +CHOL100046 PO; -PANT40TA55 PO; -RIFA550T PO; -SACU1TAB PO
[2022-01-30] MEDS ORDERED: ACETAMINOPHEN 500 MG TABLET ONE (12:34)
[2022-01-30 12:52] LABS: BASOPHILS % (AUTO) 0.5 % (0.0-5.0); EOSINOPHILS % (AUTO) 3.8 % (0.0-8.0); HEMATOCRIT 24.6 % (42-54); LYMPHOCYTES % (AUTO) 3.9 % (21.0-51.0); MEAN CORPUSCULAR HEMOGLOBIN 30.1 pg (27.0-33.0); MEAN CORPUSCULAR HGB CONC 31.7 g/dL (32.0-36.0); MONOCYTES % (AUTO) 4.8 % (3.0-13.0); NEUTROPHILS % (AUTO) 86.4 % (40.0-77.0); PLATELET COUNT (AUTO) 95 K/uL (130-400); RED BLOOD CELL COUNT(AUTO) 2.59 MIL/uL (4.50-6.20); RED CELL DISTRIBUTION WIDTH 16.9 % (11.0-15.5); WHITE BLOOD COUNT (AUTO) 11.4 K/uL (4.8-10.8)
[2022-01-30] MEDS ORDERED: KETOROLAC 15MG/ML VIAL (15MG/ML) ONE (12:59)
[2022-01-30] MEDS ORDERED: KETOROLAC 15MG/ML VIAL (15MG/ML) IV ONE (13:00)
[2022-01-30] MEDS: ACETAMINOPHEN 500 MG TABLET PO SCH (13:00)
[2022-01-30 13:15] LABS: ALBUMIN 2.3 g/dL (3.5-5.0); POTASSIUM 5.6 mmol/L (3.5-5.1)
[2022-01-30 13:23] LABS: ABG BASE EXCESS -2.8 mmol/L (-2.0-3.0); ABG HCO3 22.5 mmol/L (21.0-28.0); ABG OXYGEN SATURATION 56.7 % (95.0-99.0); ABG PCO2 41 mmHg (35-48)
[2022-01-30 13:24] LABS: CREATININE 9.5 mg/dL (0.5-1.5)
[2022-01-30] MEDS ORDERED: ZOSYN 3.375GM +NS 50ML IV SCH (13:30)
[2022-01-30 14:44] LABS: B-TYPE NATRIURETIC PEPTIDE 1800 pg/mL (0-100)
[2022-01-30] MEDS ORDERED: ONDANSETRON 4MG INJ IV PRN (15:30)
[2022-01-30] MEDS: ZOSYN 3.375GM +NS 50ML IV SCH (15:30)
[2022-01-30] MEDS: FAMOTIDINE 20MG VIAL IV SCH (15:43)
[2022-01-30 17:55] VITALS: BP 123/41
[2022-01-30 19:51] VITALS: BP_SYST 123; BP_SYST 128; BP_DIAS 35; BP_DIAS 38
[2022-01-30 23:55] VITALS: BP 143/54
[2022-01-31] VITALS (20 sets, daily range): BP systolic 96–163; BP diastolic 37–86
[2022-01-31] MEDS: ZOSYN 3.375GM +NS 50ML IV SCH ×2 (04:12→15:18)
[2022-01-31 05:31] LABS: ALBUMIN 1.9 g/dL (3.5-5.0); POTASSIUM 5.7 mmol/L (3.5-5.1); TOTAL PROTEIN, SERUM 6.8 g/dL (6.0-8.3)
[2022-01-31 05:42] LABS: CREATININE 10.5 mg/dL (0.5-1.5)
[2022-01-31 05:48] LABS: BASOPHILS % (AUTO) 0.5 % (0.0-5.0); EOSINOPHILS % (AUTO) 4.7 % (0.0-8.0); HEMATOCRIT 22.8 % (42-54); LYMPHOCYTES % (AUTO) 4.1 % (21.0-51.0); MEAN CORPUSCULAR HEMOGLOBIN 29.1 pg (27.0-33.0); MEAN CORPUSCULAR HGB CONC 31.1 g/dL (32.0-36.0); MEAN CORPUSCULAR VOLUME 93.4 fL (79-99); MONOCYTES % (AUTO) 4.6 % (3.0-13.0); NEUTROPHILS % (AUTO) 85.6 % (40.0-77.0); PLATELET COUNT (AUTO) 65 K/uL (130-400); RED BLOOD CELL COUNT(AUTO) 2.44 MIL/uL (4.50-6.20); RED CELL DISTRIBUTION WIDTH 17.1 % (11.0-15.5); WHITE BLOOD COUNT (AUTO) 9.5 K/uL (4.8-10.8)
[2022-01-31] MEDS: FAMOTIDINE 20MG VIAL IV SCH (08:51)
[2022-01-31] MEDS: ACETAMINOPHEN 500 MG TABLET PO SCH (12:21)
[2022-01-31] MEDS: ACETAMINOPHEN 325 MG TAB PO PRN (12:24)
[2022-01-31] MEDS ORDERED: LABETALOL 20MG VIAL IV SCH (15:00)
[2022-01-31] MEDS ORDERED: LABETALOL 20MG VIAL IV ONE (15:06)
[2022-01-31] MEDS: HEPARIN 5,000 UNIT VIAL IV PRN (17:57)
[2022-01-31] MEDS: CARVEDILOL 12.5 MG TABLET PO SCH (20:28)
[2022-02-01 02:30] LABS: HEPATITIS B SURFACE ANTIGEN Non-Reactive (Negative)
[2022-02-01] MEDS: ZOSYN 3.375GM +NS 50ML IV SCH ×2 (03:38→16:06)
[2022-02-01 04:24] VITALS: BP 115/51
[2022-02-01 05:23] LABS: BASOPHILS % (AUTO) 0.8 % (0.0-5.0); LYMPHOCYTES % (AUTO) 7.3 % (21.0-51.0); MEAN CORPUSCULAR HEMOGLOBIN 29.6 pg (27.0-33.0); MEAN CORPUSCULAR VOLUME 92.6 fL (79-99); MONOCYTES % (AUTO) 8.3 % (3.0-13.0); NEUTROPHILS % (AUTO) 78.1 % (40.0-77.0); PLATELET COUNT (AUTO) 58 K/uL (130-400); RED BLOOD CELL COUNT(AUTO) 2.16 MIL/uL (4.50-6.20); RED CELL DISTRIBUTION WIDTH 17.1 % (11.0-15.5); WHITE BLOOD COUNT (AUTO) 6.6 K/uL (4.8-10.8)
[2022-02-01 06:04] LABS: MAGNESIUM 2.4 mg/dL (1.80-2.40); PHOSPHORUS 5.1 mg/dL (2.5-4.9); POTASSIUM 4.9 mmol/L (3.5-5.1); THYROID STIMULATING HORMONE 0.69 uIU/mL (0.36-3.74)
[2022-02-01 06:08] LABS: CREATININE 8.7 mg/dL (0.5-1.5)
[2022-02-01 07:03] LABS: RETICULOCYTE % (AUTO) 2.29 % (0.42-2.23)
[2022-02-01 07:26] LABS: % IRON SATURATION 31.4 % (30-44)
[2022-02-01 07:29] LABS: THYROID STIMULATING HORMONE 0.77 uIU/mL (0.36-3.74)
[2022-02-01 08:00] VITALS: BP 105/53
[2022-02-01] MEDS: Vitamin B Complex/Vit C/Folic Acid PO SCH (08:20)
[2022-02-01] MEDS: CARVEDILOL 12.5 MG TABLET PO SCH ×2 (08:20→20:47)
[2022-02-01] MEDS: FAMOTIDINE 20MG VIAL IV SCH (08:21)
[2022-02-01 11:08] VITALS: BP 106/44
[2022-02-01] MEDS: ACETAMINOPHEN 500 MG TABLET PO SCH (13:29)
[2022-02-01 16:00] VITALS: BP 111/50
[2022-02-01 19:50] VITALS: BP 116/50
[2022-02-02] VITALS (22 sets, daily range): BP systolic 107–157; BP diastolic 48–75
[2022-02-02] MEDS: ZOSYN 3.375GM +NS 50ML IV SCH ×2 (03:56→16:59)
[2022-02-02 05:06] LABS: MEAN CORPUSCULAR HEMOGLOBIN 30.2 pg (27.0-33.0); MEAN CORPUSCULAR HGB CONC 32.4 g/dL (32.0-36.0); MEAN CORPUSCULAR VOLUME 93.3 fL (79-99); RED BLOOD CELL COUNT(AUTO) 2.25 MIL/uL (4.50-6.20); RED CELL DISTRIBUTION WIDTH 17.1 % (11.0-15.5)
[2022-02-02 05:33] LABS: ALBUMIN 1.9 g/dL (3.5-5.0); BILIRUBIN,TOTAL 1.2 mg/dL (0.2-1.0); POTASSIUM 5.4 mmol/L (3.5-5.1); TOTAL PROTEIN, SERUM 6.8 g/dL (6.0-8.3)
[2022-02-02 05:37] LABS: CREATININE 9.9 mg/dL (0.5-1.5)
[2022-02-02 13:51] LABS: HEMATOCRIT 25.3 % (42-54)
[2022-02-02] MEDS ORDERED: COMPOUND IV REFRIGERATED 1 EACH IVSOLN MISC PRN (14:00)
[2022-02-02] MEDS: HEPARIN 5,000 UNIT VIAL IV PRN (14:13)
[2022-02-02] MEDS: Vitamin B Complex/Vit C/Folic Acid PO SCH (14:15)
[2022-02-02] MEDS: LACTULOSE 20 GM/30 ML UDCUP PO SCH (14:15)
[2022-02-02] MEDS: FAMOTIDINE 20MG VIAL IV SCH (14:15)
[2022-02-02] MEDS: ACETAMINOPHEN 500 MG TABLET PO SCH (14:16)
[2022-02-02] MEDS: CARVEDILOL 12.5 MG TABLET PO SCH ×2 (14:19→21:12)
[2022-02-02] MEDS ORDERED: [UNRECOGNIZED DRUG - OTHER] IJ SCH (14:45)
[2022-02-02] MEDS ORDERED: DESMOPRESSIN IJ SCH (14:45)
[2022-02-03] VITALS (27 sets, daily range): BP systolic 87–166; BP diastolic 25–101
[2022-02-03] MEDS: ACETAMINOPHEN 325 MG TAB PO PRN ×2 (00:06→08:11)
[2022-02-03 03:22] LABS: BASOPHILS % (AUTO) 0.5 % (0.0-5.0); EOSINOPHILS % (AUTO) 4.7 % (0.0-8.0); LYMPHOCYTES % (AUTO) 7.3 % (21.0-51.0); MEAN CORPUSCULAR HEMOGLOBIN 29.9 pg (27.0-33.0); MEAN CORPUSCULAR HGB CONC 31.9 g/dL (32.0-36.0); MEAN CORPUSCULAR VOLUME 93.5 fL (79-99); MONOCYTES % (AUTO) 11.5 % (3.0-13.0); NEUTROPHILS % (AUTO) 75.5 % (40.0-77.0); PLATELET COUNT (AUTO) 58 K/uL (130-400); RED BLOOD CELL COUNT(AUTO) 1.54 MIL/uL (4.50-6.20); RED CELL DISTRIBUTION WIDTH 17.5 % (11.0-15.5); WHITE BLOOD COUNT (AUTO) 5.5 K/uL (4.8-10.8)
[2022-02-03 03:25] LABS: HEMATOCRIT 14.4 % (42-54)
[2022-02-03 03:34] LABS: ALBUMIN 1.4 g/dL (3.5-5.0); MAGNESIUM 2.1 mg/dL (1.80-2.40); PHOSPHORUS 5.2 mg/dL (2.5-4.9); POTASSIUM 5.8 mmol/L (3.5-5.1)
[2022-02-03 03:46] LABS: CREATININE 8.1 mg/dL (0.5-1.5)
[2022-02-03] MEDS: ZOSYN 3.375GM +NS 50ML IV SCH (04:03)
[2022-02-03 04:14] LABS: HEMATOCRIT 14.9 % (42-54)
[2022-02-03] MEDS: Vitamin B Complex/Vit C/Folic Acid PO SCH (08:10)
[2022-02-03] MEDS: FAMOTIDINE 20MG VIAL IV SCH (08:11)
[2022-02-03] MEDS: CARVEDILOL 12.5 MG TABLET PO SCH ×2 (09:00→20:49)
[2022-02-03] MEDS: LACTULOSE 20 GM/30 ML UDCUP PO SCH (09:00)
[2022-02-03] MEDS ORDERED: ZOSYN 3.375GM +NS 50ML IV SCH (09:30)
[2022-02-03] MEDS ORDERED: OCTREOTIDE ACETATE 1,250 MCG in 0.9% NACL 250ML 250 ML IV SCH (09:30)
[2022-02-03 09:34] LABS: BASOPHILS % (AUTO) 0.4 % (0.0-5.0); EOSINOPHILS % (AUTO) 3.2 % (0.0-8.0); LYMPHOCYTES % (AUTO) 8.9 % (21.0-51.0); MEAN CORPUSCULAR HEMOGLOBIN 28.2 pg (27.0-33.0); MEAN CORPUSCULAR HGB CONC 31.2 g/dL (32.0-36.0); MEAN CORPUSCULAR VOLUME 90.2 fL (79-99); MONOCYTES % (AUTO) 13.5 % (3.0-13.0); NEUTROPHILS % (AUTO) 73.3 % (40.0-77.0); PLATELET COUNT (AUTO) 53 K/uL (130-400); RED BLOOD CELL COUNT(AUTO) 1.74 MIL/uL (4.50-6.20); RED CELL DISTRIBUTION WIDTH 17.2 % (11.0-15.5); WHITE BLOOD COUNT (AUTO) 5.7 K/uL (4.8-10.8)
[2022-02-03] MEDS ORDERED: METOCLOPRAMIDE 10 MG/2 ML VIAL IVP SCH (10:00)
[2022-02-03] MEDS ORDERED: CEFTRIAXONE 1G VIAL IVP SCH (10:00)
[2022-02-03 10:01] LABS: HEMATOCRIT 15.7 % (42-54)
[2022-02-03] MEDS: PANTOPRAZOLE 40MG INJ 80 MG in 0.9%NACL 100ML 100 ML IVP SCH ×2 (10:19→18:33)
[2022-02-03] MEDS: ACETAMINOPHEN 500 MG TABLET PO SCH (10:21)
[2022-02-03] MEDS ORDERED: PHYTONADIONE 10 MG in 0.9%NACL 50ML 50 ML IVPB SCH (10:30)
[2022-02-03 10:38] LABS: INR 1.43 (0.85-1.15); PROTHROMBIN TIME 15.1 SEC (9.6-11.6)
[2022-02-03] MEDS ORDERED: ZYVOX 600 MG TAB PO SCH ×2 (13:00→21:00)
[2022-02-03] MEDS ORDERED: PHARMACY COMMUNICATION MISC SCH (14:30)
[2022-02-03] MEDS ORDERED: GLUCAGON 1MG KIT 1 MG ML IM PRN (16:30)
[2022-02-03] MEDS ORDERED: DEXTROSE 50%-WATER 50 ML DISP.SYRIN IV PRN (16:30)
[2022-02-03] MEDS: INSULIN HUMULIN R 100 UNIT/ML 3ML SQ SCH ×2 (16:30→20:50)
[2022-02-03] MEDS ORDERED: NA ZIRCON CYCLOSIL(LOKELMA 10GM) PO SCH (17:00)
[2022-02-03 17:12] LABS: HEMATOCRIT 20.3 % (42-54)
[2022-02-03] MEDS ORDERED: WATER IV SCH (18:00)
[2022-02-03] MEDS ORDERED: BACTRIM IV SCH (18:00)
[2022-02-03] MEDS ORDERED: DEXTROSE 5% IV SCH (18:00)
[2022-02-03] MEDS: SULFAMETHOX-TMP DS 800/160 TAB PO SCH (20:47)
[2022-02-03] MEDS: LINEZOLID 600 MG/ISO-OSM 300 ML IV SCH (20:47)
[2022-02-03] MEDS ORDERED: SULFAMETHOX-TMP DS 800/160 TAB PO SCH (21:00)
[2022-02-03 21:51] LABS: HEMATOCRIT 22.6 % (42-54)
[2022-02-04] VITALS (66 sets, daily range): BP systolic 100–167; BP diastolic 17–115
[2022-02-04] MEDS: ACETAMINOPHEN 325 MG TAB PO PRN ×3 (00:23→20:21)
[2022-02-04 04:10] LABS: EOSINOPHILS % (AUTO) 6.9 % (0.0-8.0); LYMPHOCYTES % (AUTO) 11.4 % (21.0-51.0); MEAN CORPUSCULAR HEMOGLOBIN 28.9 pg (27.0-33.0); MEAN CORPUSCULAR HGB CONC 32.1 g/dL (32.0-36.0); MEAN CORPUSCULAR VOLUME 89.9 fL (79-99); MONOCYTES % (AUTO) 9.8 % (3.0-13.0); NEUTROPHILS % (AUTO) 69.2 % (40.0-77.0); PLATELET COUNT (AUTO) 76 K/uL (130-400); RED BLOOD CELL COUNT(AUTO) 2.18 MIL/uL (4.50-6.20); RED CELL DISTRIBUTION WIDTH 18.1 % (11.0-15.5); WHITE BLOOD COUNT (AUTO) 5.2 K/uL (4.8-10.8)
[2022-02-04 04:13] LABS: INR 1.26 (0.85-1.15); PROTHROMBIN TIME 13.4 SEC (9.6-11.6)
[2022-02-04 04:15] LABS: PARTIAL THROMBOPLASTIN TIME 36.6 SEC (26.3-35.5)
[2022-02-04 04:18] LABS: HEMATOCRIT 19.6 % (42-54)
[2022-02-04 04:29] LABS: ALBUMIN 1.6 g/dL (3.5-5.0); BILIRUBIN,TOTAL 1.1 mg/dL (0.2-1.0); PHOSPHORUS 6.8 mg/dL (2.5-4.9); POTASSIUM 5.6 mmol/L (3.5-5.1); TOTAL PROTEIN, SERUM 5.4 g/dL (6.0-8.3)
[2022-02-04 04:43] LABS: CREATININE 9.1 mg/dL (0.5-1.5)
[2022-02-04] MEDS: INSULIN HUMULIN R 100 UNIT/ML 3ML SQ SCH ×4 (06:02→20:48)
[2022-02-04] MEDS: PANTOPRAZOLE 40MG INJ 80 MG in 0.9%NACL 100ML 100 ML IVP SCH ×2 (07:32→20:21)
[2022-02-04] MEDS: BACTRIM IV SCH ×2 (08:12→21:16)
[2022-02-04] MEDS: DEXTROSE 5% IV SCH ×2 (08:12→21:16)
[2022-02-04] MEDS: WATER IV SCH ×2 (08:12→21:16)
[2022-02-04] MEDS: Vitamin B Complex/Vit C/Folic Acid PO SCH (08:13)
[2022-02-04] MEDS: SULFAMETHOX-TMP DS 800/160 TAB PO SCH ×2 (08:13→20:26)
[2022-02-04] MEDS: LACTULOSE 20 GM/30 ML UDCUP PO SCH (08:13)
[2022-02-04] MEDS: NA ZIRCON CYCLOSIL(LOKELMA 10GM) PO SCH (08:13)
[2022-02-04 09:22] LABS: HEMATOCRIT 22.6 % (42-54)
[2022-02-04] MEDS: LINEZOLID 600 MG/ISO-OSM 300 ML IV SCH ×2 (09:25→20:26)
[2022-02-04] MEDS: CARVEDILOL 12.5 MG TABLET PO SCH ×2 (09:26→20:29)
[2022-02-04] MEDS ORDERED: PROPOFOL 10 MG/ML 20ML VIAL IV ONE (12:07)
[2022-02-04] MEDS ORDERED: EPHEDRINE SULFATE 50 MG/ML AMPULE ONE (12:09)
[2022-02-04 14:22] LABS: HEMATOCRIT 21.8 % (42-54)
[2022-02-04] MEDS ORDERED: IOHEXOL 350 MG/ML 100ML INFUS..BTL IV ONE (15:35)
[2022-02-04] MEDS: HEPARIN 5,000 UNIT VIAL IV PRN (19:34)
[2022-02-04 21:02] LABS: HEMATOCRIT 24.6 % (42-54)
[2022-02-05] VITALS (50 sets, daily range): BP systolic 87–150; BP diastolic 27–86
[2022-02-05] MEDS: OCTREOTIDE ACETATE 1,250 MCG in 0.9% NACL 250ML IV SCH (00:44)
[2022-02-05 04:26] LABS: BASOPHILS % (AUTO) 1.5 % (0.0-5.0); EOSINOPHILS % (AUTO) 9.6 % (0.0-8.0); HEMATOCRIT 23.6 % (42-54); LYMPHOCYTES % (AUTO) 12.9 % (21.0-51.0); MEAN CORPUSCULAR HEMOGLOBIN 28.6 pg (27.0-33.0); MEAN CORPUSCULAR HGB CONC 31.8 g/dL (32.0-36.0); MEAN CORPUSCULAR VOLUME 90.1 fL (79-99); MONOCYTES % (AUTO) 8.8 % (3.0-13.0); PLATELET COUNT (AUTO) 68 K/uL (130-400); RED BLOOD CELL COUNT(AUTO) 2.62 MIL/uL (4.50-6.20); RED CELL DISTRIBUTION WIDTH 17.2 % (11.0-15.5); WHITE BLOOD COUNT (AUTO) 3.4 K/uL (4.8-10.8)
[2022-02-05 04:32] LABS: CREATININE 6.8 mg/dL (0.5-1.5); POTASSIUM 4.4 mmol/L (3.5-5.1)
[2022-02-05] MEDS: PANTOPRAZOLE 40MG INJ 80 MG in 0.9%NACL 100ML 100 ML IVP SCH ×2 (06:08→16:02)
[2022-02-05] MEDS: INSULIN HUMULIN R 100 UNIT/ML 3ML SQ SCH ×4 (06:11→21:00)
[2022-02-05] MEDS: PROPRANOLOL HCL 10 MG TAB PO SCH ×3 (07:00→23:47)
[2022-02-05] MEDS: WATER IV SCH ×2 (07:20→21:38)
[2022-02-05] MEDS: DEXTROSE 5% IV SCH ×2 (07:20→21:38)
[2022-02-05] MEDS: BACTRIM IV SCH ×2 (07:20→21:38)
[2022-02-05] MEDS: LACTULOSE 20 GM/30 ML UDCUP PO SCH (07:49)
[2022-02-05] MEDS: SULFAMETHOX-TMP DS 800/160 TAB PO SCH ×2 (07:49→19:31)
[2022-02-05] MEDS: NA ZIRCON CYCLOSIL(LOKELMA 10GM) PO SCH (08:12)
[2022-02-05] MEDS: Vitamin B Complex/Vit C/Folic Acid PO SCH (08:13)
[2022-02-05] MEDS: CARVEDILOL 12.5 MG TABLET PO SCH ×2 (08:13→21:41)
[2022-02-05] MEDS: ACETAMINOPHEN 325 MG TAB PO PRN (08:16)
[2022-02-05] MEDS: LINEZOLID 600 MG/ISO-OSM 300 ML IV SCH ×2 (08:17→21:38)
[2022-02-05 10:06] LABS: HEMATOCRIT 22.6 % (42-54)
[2022-02-05 16:04] LABS: HEMATOCRIT 22.1 % (42-54)
[2022-02-06 00:28] VITALS: BP 130/59
[2022-02-06] MEDS: PANTOPRAZOLE 40MG INJ 80 MG in 0.9%NACL 100ML 100 ML IVP SCH ×3 (02:20→13:37)
[2022-02-06] MEDS: OCTREOTIDE ACETATE 1,250 MCG in 0.9% NACL 250ML IV SCH (04:04)
[2022-02-06 05:04] VITALS: BP 123/50
[2022-02-06 05:18] LABS: EOSINOPHILS % (AUTO) 8.5 % (0.0-8.0); HEMATOCRIT 23.5 % (42-54); LYMPHOCYTES % (AUTO) 16.3 % (21.0-51.0); MEAN CORPUSCULAR HEMOGLOBIN 29.8 pg (27.0-33.0); MEAN CORPUSCULAR HGB CONC 32.8 g/dL (32.0-36.0); MEAN CORPUSCULAR VOLUME 91.1 fL (79-99); NEUTROPHILS % (AUTO) 65.2 % (40.0-77.0); PLATELET COUNT (AUTO) 67 K/uL (130-400); RED BLOOD CELL COUNT(AUTO) 2.58 MIL/uL (4.50-6.20); RED CELL DISTRIBUTION WIDTH 17.2 % (11.0-15.5)
[2022-02-06 05:27] LABS: POTASSIUM 4.7 mmol/L (3.5-5.1)
[2022-02-06 05:32] LABS: CREATININE 7.9 mg/dL (0.5-1.5)
[2022-02-06] MEDS: INSULIN HUMULIN R 100 UNIT/ML 3ML SQ SCH ×4 (06:36→21:00)
[2022-02-06] MEDS: PROPRANOLOL HCL 10 MG TAB PO SCH ×3 (06:38→21:43)
[2022-02-06 08:00] VITALS: BP 134/52
[2022-02-06] MEDS: WATER IV SCH ×2 (08:00→20:00)
[2022-02-06] MEDS: BACTRIM IV SCH ×2 (08:00→20:00)
[2022-02-06] MEDS: DEXTROSE 5% IV SCH ×2 (08:00→20:00)
[2022-02-06] MEDS: NA ZIRCON CYCLOSIL(LOKELMA 10GM) PO SCH (09:00)
[2022-02-06] MEDS: SULFAMETHOX-TMP DS 800/160 TAB PO SCH ×2 (09:11→21:42)
[2022-02-06] MEDS: Vitamin B Complex/Vit C/Folic Acid PO SCH (09:11)
[2022-02-06] MEDS: LINEZOLID 600 MG/ISO-OSM 300 ML IV SCH ×2 (09:11→21:42)
[2022-02-06] MEDS: LACTULOSE 20 GM/30 ML UDCUP PO SCH (09:12)
[2022-02-06] MEDS: CARVEDILOL 12.5 MG TABLET PO SCH ×2 (09:12→21:44)
[2022-02-06 12:00] VITALS: BP 128/60
[2022-02-06 16:00] VITALS: BP 129/53
[2022-02-06 20:41] VITALS: BP 121/50
[2022-02-07] VITALS (20 sets, daily range): BP systolic 91–140; BP diastolic 34–79
[2022-02-07] MEDS ORDERED: OCTREOTIDE ACETATE 200 MCG/ML 5 ML VIAL ONE (01:04)
[2022-02-07] MEDS ORDERED: 0.9%NACL 100ML 100 ML ONE (03:07)
[2022-02-07] MEDS: PANTOPRAZOLE 40 MG/VIAL ONE ×2 (03:10→04:08)
[2022-02-07] MEDS: PANTOPRAZOLE 40MG INJ 80 MG in 0.9%NACL 100ML 100 ML IVP SCH ×2 (03:30→13:20)
[2022-02-07 05:27] LABS: EOSINOPHILS % (AUTO) 8.3 % (0.0-8.0); HEMATOCRIT 22.6 % (42-54); LYMPHOCYTES % (AUTO) 16.5 % (21.0-51.0); MEAN CORPUSCULAR HEMOGLOBIN 29.4 pg (27.0-33.0); MEAN CORPUSCULAR HGB CONC 32.3 g/dL (32.0-36.0); MEAN CORPUSCULAR VOLUME 91.1 fL (79-99); MONOCYTES % (AUTO) 7.7 % (3.0-13.0); NEUTROPHILS % (AUTO) 65.3 % (40.0-77.0); PLATELET COUNT (AUTO) 64 K/uL (130-400); RED BLOOD CELL COUNT(AUTO) 2.48 MIL/uL (4.50-6.20); RED CELL DISTRIBUTION WIDTH 16.6 % (11.0-15.5); WHITE BLOOD COUNT (AUTO) 4.9 K/uL (4.8-10.8)
[2022-02-07 05:38] LABS: POTASSIUM 5.2 mmol/L (3.5-5.1)
[2022-02-07 05:39] LABS: INR 1.27 (0.85-1.15); PROTHROMBIN TIME 13.5 SEC (9.6-11.6)
[2022-02-07 05:40] LABS: PARTIAL THROMBOPLASTIN TIME 37.6 SEC (26.3-35.5)
[2022-02-07] MEDS: PROPRANOLOL HCL 10 MG TAB PO SCH ×3 (06:02→22:04)
[2022-02-07] MEDS: INSULIN HUMULIN R 100 UNIT/ML 3ML SQ SCH ×4 (06:02→21:00)
[2022-02-07 06:03] LABS: CREATININE 8.7 mg/dL (0.5-1.5)
[2022-02-07] MEDS: DEXTROSE 5% IV SCH (08:00)
[2022-02-07] MEDS: BACTRIM IV SCH (08:00)
[2022-02-07] MEDS: WATER IV SCH (08:00)
[2022-02-07] MEDS: LACTULOSE 20 GM/30 ML UDCUP PO SCH (09:51)
[2022-02-07] MEDS: Vitamin B Complex/Vit C/Folic Acid PO SCH (09:51)
[2022-02-07] MEDS: SULFAMETHOX-TMP DS 800/160 TAB PO SCH ×2 (09:51→22:03)
[2022-02-07] MEDS: LINEZOLID 600 MG/ISO-OSM 300 ML IV SCH ×2 (09:52→22:03)
[2022-02-07] MEDS: CARVEDILOL 12.5 MG TABLET PO SCH ×2 (09:52→21:00)
[2022-02-07] MEDS: NA ZIRCON CYCLOSIL(LOKELMA 10GM) PO SCH (10:36)
[2022-02-07] MEDS: OCTREOTIDE ACETATE 1,250 MCG in 0.9% NACL 250ML IV SCH (10:36)
[2022-02-07] MEDS: HEPARIN 5,000 UNIT VIAL IV PRN (12:32)
[2022-02-07 19:28] LABS: HEMATOCRIT 25.5 % (42-54)
[2022-02-07] MEDS: EPOETIN ALFA-EPBX (ESRD) 10,000 UNIT/ML VIAL SQ SCH (22:04)
[2022-02-08] MEDS: PANTOPRAZOLE 40MG INJ 80 MG in 0.9%NACL 100ML 100 ML IVP SCH (03:04)
[2022-02-08 03:58] VITALS: BP 159/39
[2022-02-08] MEDS: INSULIN HUMULIN R 100 UNIT/ML 3ML SQ SCH ×4 (05:41→21:00)
[2022-02-08 05:42] LABS: HEMATOCRIT 21.5 % (42-54); MEAN CORPUSCULAR HEMOGLOBIN 30.2 pg (27.0-33.0); MEAN CORPUSCULAR VOLUME 91.5 fL (79-99); PLATELET COUNT (AUTO) 49 K/uL (130-400); RED BLOOD CELL COUNT(AUTO) 2.35 MIL/uL (4.50-6.20); RED CELL DISTRIBUTION WIDTH 17.1 % (11.0-15.5); WHITE BLOOD COUNT (AUTO) 3.6 K/uL (4.8-10.8)
[2022-02-08] MEDS: PROPRANOLOL HCL 10 MG TAB PO SCH ×3 (05:45→22:00)
[2022-02-08 05:56] LABS: CREATININE 7.2 mg/dL (0.5-1.5); POTASSIUM 4.7 mmol/L (3.5-5.1)
[2022-02-08 06:09] LABS: BAND NEUTROPHILS % (MANUAL) 2 % (0-2); BASOPHILS % (MANUAL) 1 % (0-2); EOSINOPHILS % (MANUAL) 8 % (1-6); LYMPHOCYTES % (MANUAL) 7 % (22-44); MAN.DIFF COMMENT-IMPRESSION MANUAL DIFFERENTIAL; MONOCYTES % (MANUAL) 4 % (2-9); REACTIVE LYMPHOCYTES 5 % (0-0); SEGMENTED NEUTROPHILS % 73 % (40-70)
[2022-02-08 06:10] LABS: PLATELET MORPHOLOGY COMMENT MARKED DECREASE
[2022-02-08 08:00] VITALS: BP 124/37
[2022-02-08] MEDS: LACTULOSE 20 GM/30 ML UDCUP PO SCH (09:21)
[2022-02-08] MEDS: Vitamin B Complex/Vit C/Folic Acid PO SCH (09:22)
[2022-02-08] MEDS: LINEZOLID 600 MG/ISO-OSM 300 ML IV SCH (09:22)
[2022-02-08] MEDS: SULFAMETHOX-TMP DS 800/160 TAB PO SCH ×2 (09:22→21:05)
[2022-02-08] MEDS: NA ZIRCON CYCLOSIL(LOKELMA 10GM) PO SCH (09:22)
[2022-02-08] MEDS: CARVEDILOL 12.5 MG TABLET PO SCH ×2 (09:22→21:05)
[2022-02-08] MEDS: PANTOPRAZOLE 40 MG/VIAL IVP SCH ×2 (10:45→21:03)
[2022-02-08 11:22] VITALS: BP 130/95
[2022-02-08 14:54] LABS: HEMATOCRIT 18.7 % (42-54)
[2022-02-08 16:00] VITALS: BP 118/42
[2022-02-08 20:35] VITALS: BP 125/38
[2022-02-08 23:48] LABS: HEMATOCRIT 21.4 % (42-54)
[2022-02-08 23:58] VITALS: BP 149/48
[2022-02-09] VITALS (17 sets, daily range): BP systolic 92–155; BP diastolic 43–63
[2022-02-09 04:57] LABS: BASOPHILS % (AUTO) 0.8 % (0.0-5.0); HEMATOCRIT 22.2 % (42-54); LYMPHOCYTES % (AUTO) 18.9 % (21.0-51.0); MEAN CORPUSCULAR HEMOGLOBIN 29.3 pg (27.0-33.0); MEAN CORPUSCULAR HGB CONC 32.9 g/dL (32.0-36.0); MEAN CORPUSCULAR VOLUME 89.2 fL (79-99); MONOCYTES % (AUTO) 7.3 % (3.0-13.0); PLATELET COUNT (AUTO) 38 K/uL (130-400); RED BLOOD CELL COUNT(AUTO) 2.49 MIL/uL (4.50-6.20); RED CELL DISTRIBUTION WIDTH 16.4 % (11.0-15.5); WHITE BLOOD COUNT (AUTO) 3.8 K/uL (4.8-10.8)
[2022-02-09 05:10] LABS: ALBUMIN 1.6 g/dL (3.5-5.0); BILIRUBIN,TOTAL 0.7 mg/dL (0.2-1.0); POTASSIUM 5.6 mmol/L (3.5-5.1); TOTAL PROTEIN, SERUM 5.2 g/dL (6.0-8.3)
[2022-02-09 05:11] LABS: CREATININE 8.6 mg/dL (0.5-1.5)
[2022-02-09] MEDS: PROPRANOLOL HCL 10 MG TAB PO SCH ×3 (05:46→21:04)
[2022-02-09] MEDS: INSULIN HUMULIN R 100 UNIT/ML 3ML SQ SCH ×4 (07:08→21:00)
[2022-02-09] MEDS: PANTOPRAZOLE 40 MG/VIAL IVP SCH ×2 (08:32→21:05)
[2022-02-09] MEDS: Vitamin B Complex/Vit C/Folic Acid PO SCH (08:32)
[2022-02-09] MEDS: CARVEDILOL 12.5 MG TABLET PO SCH ×2 (08:32→21:05)
[2022-02-09] MEDS: SULFAMETHOX-TMP DS 800/160 TAB PO SCH ×2 (08:32→21:04)
[2022-02-09] MEDS: LACTULOSE 20 GM/30 ML UDCUP PO SCH (08:33)
[2022-02-09] MEDS: NA ZIRCON CYCLOSIL(LOKELMA 10GM) PO SCH (08:36)
[2022-02-09 09:34] LABS: HEMATOCRIT 20.7 % (42-54)
[2022-02-09 14:22] LABS: HEMATOCRIT 21.9 % (42-54)
[2022-02-09 21:05] LABS: HEMATOCRIT 21.4 % (42-54)
[2022-02-09] MEDS: EPOETIN ALFA-EPBX (ESRD) 10,000 UNIT/ML VIAL SQ SCH (21:06)
[2022-02-10] VITALS (7 sets, daily range): BP systolic 92–126; BP diastolic 35–50
[2022-02-10 03:59] LABS: BASOPHILS % (AUTO) 0.6 % (0.0-5.0); EOSINOPHILS % (AUTO) 4.1 % (0.0-8.0); HEMATOCRIT 21.2 % (42-54); LYMPHOCYTES % (AUTO) 18.1 % (21.0-51.0); MEAN CORPUSCULAR HEMOGLOBIN 29.9 pg (27.0-33.0); MEAN CORPUSCULAR VOLUME 90.6 fL (79-99); NEUTROPHILS % (AUTO) 70.6 % (40.0-77.0); PLATELET COUNT (AUTO) 27 K/uL (130-400); RED BLOOD CELL COUNT(AUTO) 2.34 MIL/uL (4.50-6.20); WHITE BLOOD COUNT (AUTO) 3.2 K/uL (4.8-10.8)
[2022-02-10 04:24] LABS: ALBUMIN 1.7 g/dL (3.5-5.0); BILIRUBIN,DIRECT 0.3 mg/dL (0.0-0.3); BILIRUBIN,TOTAL 0.7 mg/dL (0.2-1.0); CREATININE 7.8 mg/dL (0.5-1.5); POTASSIUM 4.8 mmol/L (3.5-5.1); TOTAL PROTEIN, SERUM 5.2 g/dL (6.0-8.3)
[2022-02-10] MEDS: PROPRANOLOL HCL 10 MG TAB PO SCH ×3 (06:25→22:00)
[2022-02-10] MEDS: INSULIN HUMULIN R 100 UNIT/ML 3ML SQ SCH ×4 (07:30→20:30)
[2022-02-10] MEDS: NA ZIRCON CYCLOSIL(LOKELMA 10GM) PO SCH (09:00)
[2022-02-10 09:09] LABS: HEMATOCRIT 22.3 % (42-54)
[2022-02-10] MEDS: LACTULOSE 20 GM/30 ML UDCUP PO SCH (09:12)
[2022-02-10] MEDS: SULFAMETHOX-TMP DS 800/160 TAB PO SCH ×2 (09:13→20:56)
[2022-02-10] MEDS: Vitamin B Complex/Vit C/Folic Acid PO SCH (09:13)
[2022-02-10] MEDS: CARVEDILOL 12.5 MG TABLET PO SCH ×2 (09:13→21:00)
[2022-02-10] MEDS: PANTOPRAZOLE 40 MG/VIAL IVP SCH ×2 (09:13→20:56)
[2022-02-11] VITALS (20 sets, daily range): BP systolic 90–141; BP diastolic 35–80
[2022-02-11 04:58] LABS: BASOPHILS % (AUTO) 0.7 % (0.0-5.0); EOSINOPHILS % (AUTO) 5.3 % (0.0-8.0); LYMPHOCYTES % (AUTO) 12.9 % (21.0-51.0); MEAN CORPUSCULAR HGB CONC 33.2 g/dL (32.0-36.0); MEAN CORPUSCULAR VOLUME 90.4 fL (79-99); MONOCYTES % (AUTO) 6.4 % (3.0-13.0); PLATELET COUNT (AUTO) 28 K/uL (130-400); RED CELL DISTRIBUTION WIDTH 17.2 % (11.0-15.5); WHITE BLOOD COUNT (AUTO) 4.6 K/uL (4.8-10.8)
[2022-02-11 05:04] LABS: HEMATOCRIT 20.8 % (42-54)
[2022-02-11 05:19] LABS: ALBUMIN 1.7 g/dL (3.5-5.0); BILIRUBIN,TOTAL 0.5 mg/dL (0.2-1.0); TOTAL PROTEIN, SERUM 5.4 g/dL (6.0-8.3)
[2022-02-11 05:31] LABS: CREATININE 9.5 mg/dL (0.5-1.5)
[2022-02-11] MEDS: PROPRANOLOL HCL 10 MG TAB PO SCH ×3 (06:17→22:35)
[2022-02-11] MEDS: INSULIN HUMULIN R 100 UNIT/ML 3ML SQ SCH ×4 (06:17→21:00)
[2022-02-11 06:40] LABS: HEMATOCRIT 20.9 % (42-54)
[2022-02-11] MEDS: SULFAMETHOX-TMP DS 800/160 TAB PO SCH ×2 (09:06→22:35)
[2022-02-11] MEDS: Vitamin B Complex/Vit C/Folic Acid PO SCH (09:06)
[2022-02-11] MEDS: CARVEDILOL 12.5 MG TABLET PO SCH ×2 (09:07→22:35)
[2022-02-11] MEDS: LACTULOSE 20 GM/30 ML UDCUP PO SCH (09:07)
[2022-02-11] MEDS: PANTOPRAZOLE 40 MG/VIAL IVP SCH ×2 (09:07→22:35)
[2022-02-11] MEDS: NA ZIRCON CYCLOSIL(LOKELMA 10GM) PO SCH (12:05)
[2022-02-11] MEDS: EPOETIN ALFA-EPBX (ESRD) 10,000 UNIT/ML VIAL SQ SCH (22:36)
[2022-02-12 03:50] VITALS: BP 112/52
[2022-02-12 04:17] LABS: BASOPHILS % (AUTO) 0.5 % (0.0-5.0); EOSINOPHILS % (AUTO) 4.1 % (0.0-8.0); HEMATOCRIT 21.8 % (42-54); LYMPHOCYTES % (AUTO) 12.8 % (21.0-51.0); MEAN CORPUSCULAR HEMOGLOBIN 29.6 pg (27.0-33.0); MEAN CORPUSCULAR HGB CONC 32.6 g/dL (32.0-36.0); MEAN CORPUSCULAR VOLUME 90.8 fL (79-99); MONOCYTES % (AUTO) 7.3 % (3.0-13.0); NEUTROPHILS % (AUTO) 74.8 % (40.0-77.0); PLATELET COUNT (AUTO) 22 K/uL (130-400); WHITE BLOOD COUNT (AUTO) 4.4 K/uL (4.8-10.8)
[2022-02-12 04:39] LABS: ALBUMIN 1.7 g/dL (3.5-5.0); BILIRUBIN,TOTAL 0.6 mg/dL (0.2-1.0); POTASSIUM 4.5 mmol/L (3.5-5.1); TOTAL PROTEIN, SERUM 5.4 g/dL (6.0-8.3)
[2022-02-12 04:40] LABS: CREATININE 7.9 mg/dL (0.5-1.5)
[2022-02-12] MEDS: PROPRANOLOL HCL 10 MG TAB PO SCH ×3 (05:38→20:56)
[2022-02-12] MEDS: INSULIN HUMULIN R 100 UNIT/ML 3ML SQ SCH ×4 (06:46→20:57)
[2022-02-12 07:51] VITALS: BP 130/57
[2022-02-12] MEDS: LACTULOSE 20 GM/30 ML UDCUP PO SCH (09:00)
[2022-02-12] MEDS: NA ZIRCON CYCLOSIL(LOKELMA 10GM) PO SCH (09:00)
[2022-02-12] MEDS: CARVEDILOL 12.5 MG TABLET PO SCH ×2 (09:03→20:57)
[2022-02-12] MEDS: SULFAMETHOX-TMP DS 800/160 TAB PO SCH ×2 (09:03→20:57)
[2022-02-12] MEDS: Vitamin B Complex/Vit C/Folic Acid PO SCH (09:03)
[2022-02-12] MEDS: PANTOPRAZOLE 40 MG/VIAL IVP SCH ×2 (09:06→20:57)
[2022-02-12 11:45] VITALS: BP 105/56
[2022-02-12 16:35] VITALS: BP 129/53
[2022-02-12 19:33] VITALS: BP 125/50
[2022-02-12 23:41] VITALS: BP 120/53
[2022-02-13 03:34] VITALS: BP 113/64
[2022-02-13 05:02] LABS: ALBUMIN 1.7 g/dL (3.5-5.0); BILIRUBIN,TOTAL 0.7 mg/dL (0.2-1.0); TOTAL PROTEIN, SERUM 5.8 g/dL (6.0-8.3)
[2022-02-13 05:16] LABS: CREATININE 9.2 mg/dL (0.5-1.5)
[2022-02-13] MEDS: PROPRANOLOL HCL 10 MG TAB PO SCH ×3 (05:44→20:32)
[2022-02-13 05:56] LABS: BASOPHILS % (AUTO) 0.6 % (0.0-5.0); EOSINOPHILS % (AUTO) 4.8 % (0.0-8.0); LYMPHOCYTES % (AUTO) 12.7 % (21.0-51.0); MEAN CORPUSCULAR HEMOGLOBIN 29.7 pg (27.0-33.0); MEAN CORPUSCULAR HGB CONC 32.4 g/dL (32.0-36.0); MEAN CORPUSCULAR VOLUME 91.6 fL (79-99); MONOCYTES % (AUTO) 7.5 % (3.0-13.0); NEUTROPHILS % (AUTO) 73.8 % (40.0-77.0); PLATELET COUNT (AUTO) 17 K/uL (130-400); RED BLOOD CELL COUNT(AUTO) 2.73 MIL/uL (4.50-6.20); RED CELL DISTRIBUTION WIDTH 16.8 % (11.0-15.5); WHITE BLOOD COUNT (AUTO) 4.8 K/uL (4.8-10.8)
[2022-02-13] MEDS: INSULIN HUMULIN R 100 UNIT/ML 3ML SQ SCH ×4 (06:25→20:34)
[2022-02-13 08:00] VITALS: BP 130/64
[2022-02-13] MEDS: Vitamin B Complex/Vit C/Folic Acid PO SCH (08:37)
[2022-02-13] MEDS: CARVEDILOL 12.5 MG TABLET PO SCH ×2 (08:37→20:32)
[2022-02-13] MEDS: SULFAMETHOX-TMP DS 800/160 TAB PO SCH ×2 (08:37→20:33)
[2022-02-13] MEDS: LACTULOSE 20 GM/30 ML UDCUP PO SCH (08:37)
[2022-02-13] MEDS: PANTOPRAZOLE 40 MG/VIAL IVP SCH ×2 (08:38→20:33)
[2022-02-13] MEDS: NA ZIRCON CYCLOSIL(LOKELMA 10GM) PO SCH (09:00)
[2022-02-13 11:53] VITALS: BP 134/58
[2022-02-13 16:00] VITALS: BP 141/64
[2022-02-13 20:00] VITALS: BP 127/47
[2022-02-13 23:43] VITALS: BP 108/35
[2022-02-14] VITALS (19 sets, daily range): BP systolic 103–133; BP diastolic 40–58
[2022-02-14 04:36] LABS: BASOPHILS % (AUTO) 0.4 % (0.0-5.0); EOSINOPHILS % (AUTO) 4.9 % (0.0-8.0); HEMATOCRIT 24.9 % (42-54); MEAN CORPUSCULAR HGB CONC 32.5 g/dL (32.0-36.0); MEAN CORPUSCULAR VOLUME 92.2 fL (79-99); MONOCYTES % (AUTO) 9.4 % (3.0-13.0); NEUTROPHILS % (AUTO) 72.9 % (40.0-77.0); PLATELET COUNT (AUTO) 17 K/uL (130-400); RED CELL DISTRIBUTION WIDTH 16.9 % (11.0-15.5); WHITE BLOOD COUNT (AUTO) 4.5 K/uL (4.8-10.8)
[2022-02-14 04:50] LABS: ALBUMIN 1.9 g/dL (3.5-5.0); BILIRUBIN,TOTAL 0.6 mg/dL (0.2-1.0); POTASSIUM 4.9 mmol/L (3.5-5.1); TOTAL PROTEIN, SERUM 5.8 g/dL (6.0-8.3)
[2022-02-14 04:55] LABS: CREATININE 10.3 mg/dL (0.5-1.5)
[2022-02-14] MEDS: INSULIN HUMULIN R 100 UNIT/ML 3ML SQ SCH ×4 (06:07→21:00)
[2022-02-14] MEDS: PROPRANOLOL HCL 10 MG TAB PO SCH ×3 (06:10→22:00)
[2022-02-14] MEDS: PANTOPRAZOLE 40 MG/VIAL IVP SCH ×2 (08:36→22:01)
[2022-02-14] MEDS: CARVEDILOL 12.5 MG TABLET PO SCH ×2 (08:36→22:00)
[2022-02-14] MEDS: LACTULOSE 20 GM/30 ML UDCUP PO SCH (08:36)
[2022-02-14] MEDS: SULFAMETHOX-TMP DS 800/160 TAB PO SCH ×2 (08:36→22:00)
[2022-02-14] MEDS: Vitamin B Complex/Vit C/Folic Acid PO SCH (08:36)
[2022-02-14] MEDS: NA ZIRCON CYCLOSIL(LOKELMA 10GM) PO SCH (08:37)
[2022-02-14] MEDS: EPOETIN ALFA-EPBX (ESRD) 10,000 UNIT/ML VIAL SQ SCH (20:10)
[2022-02-14] MEDS: HEPARIN 5,000 UNIT VIAL IV PRN (21:55)
[2022-02-15] VITALS: BP 138/45
[2022-02-15 03:40] LABS: HEMATOCRIT 22.5 % (42-54); MEAN CORPUSCULAR HEMOGLOBIN 31.1 pg (27.0-33.0); MEAN CORPUSCULAR HGB CONC 33.8 g/dL (32.0-36.0); MEAN CORPUSCULAR VOLUME 92.2 fL (79-99); RED BLOOD CELL COUNT(AUTO) 2.44 MIL/uL (4.50-6.20); WHITE BLOOD COUNT (AUTO) 3.6 K/uL (4.8-10.8)
[2022-02-15 03:54] LABS: ALBUMIN 1.8 g/dL (3.5-5.0); BILIRUBIN,TOTAL 0.5 mg/dL (0.2-1.0); POTASSIUM 4.4 mmol/L (3.5-5.1); TOTAL PROTEIN, SERUM 5.4 g/dL (6.0-8.3)
[2022-02-15 03:56] LABS: CREATININE 8.5 mg/dL (0.5-1.5)
[2022-02-15 04:00] VITALS: BP 118/53
[2022-02-15] MEDS: INSULIN HUMULIN R 100 UNIT/ML 3ML SQ SCH ×4 (06:01→20:19)
[2022-02-15] MEDS: PROPRANOLOL HCL 10 MG TAB PO SCH ×3 (06:02→20:43)
[2022-02-15 08:00] VITALS: BP 129/62
[2022-02-15] MEDS: NA ZIRCON CYCLOSIL(LOKELMA 10GM) PO SCH (09:00)
[2022-02-15] MEDS: PANTOPRAZOLE 40 MG/VIAL IVP SCH ×2 (09:02→21:35)
[2022-02-15] MEDS: SULFAMETHOX-TMP DS 800/160 TAB PO SCH ×2 (09:02→21:35)
[2022-02-15] MEDS: LACTULOSE 20 GM/30 ML UDCUP PO SCH (09:02)
[2022-02-15] MEDS: CARVEDILOL 12.5 MG TABLET PO SCH ×2 (09:03→20:42)
[2022-02-15] MEDS: Vitamin B Complex/Vit C/Folic Acid PO SCH (09:03)
[2022-02-15 11:23] VITALS: BP 113/37
[2022-02-15 16:00] VITALS: BP 113/36
[2022-02-15 20:00] VITALS: BP 120/48
[2022-02-16] VITALS (20 sets, daily range): BP systolic 81–134; BP diastolic 25–67
[2022-02-16 03:56] LABS: BASOPHILS % (AUTO) 0.9 % (0.0-5.0); EOSINOPHILS % (AUTO) 5.1 % (0.0-8.0); LYMPHOCYTES % (AUTO) 17.4 % (21.0-51.0); MEAN CORPUSCULAR HEMOGLOBIN 30.3 pg (27.0-33.0); MEAN CORPUSCULAR HGB CONC 32.7 g/dL (32.0-36.0); MEAN CORPUSCULAR VOLUME 92.4 fL (79-99); MONOCYTES % (AUTO) 14.9 % (3.0-13.0); NEUTROPHILS % (AUTO) 61.4 % (40.0-77.0); PLATELET COUNT (AUTO) 25 K/uL (130-400); RED BLOOD CELL COUNT(AUTO) 2.38 MIL/uL (4.50-6.20); RED CELL DISTRIBUTION WIDTH 17.1 % (11.0-15.5); WHITE BLOOD COUNT (AUTO) 3.5 K/uL (4.8-10.8)
[2022-02-16 04:15] LABS: ALBUMIN 1.8 g/dL (3.5-5.0); BILIRUBIN,TOTAL 0.4 mg/dL (0.2-1.0); POTASSIUM 4.2 mmol/L (3.5-5.1); TOTAL PROTEIN, SERUM 5.5 g/dL (6.0-8.3)
[2022-02-16 04:22] LABS: CREATININE 9.8 mg/dL (0.5-1.5)
[2022-02-16] MEDS: PROPRANOLOL HCL 10 MG TAB PO SCH ×3 (04:59→19:44)
[2022-02-16] MEDS: INSULIN HUMULIN R 100 UNIT/ML 3ML SQ SCH ×3 (06:49→19:43)
[2022-02-16] MEDS: SULFAMETHOX-TMP DS 800/160 TAB PO SCH ×2 (09:09→19:43)
[2022-02-16] MEDS: Vitamin B Complex/Vit C/Folic Acid PO SCH (09:09)
[2022-02-16] MEDS: CARVEDILOL 12.5 MG TABLET PO SCH ×2 (09:09→19:44)
[2022-02-16] MEDS: PANTOPRAZOLE 40 MG/VIAL IVP SCH ×2 (09:09→19:43)
[2022-02-16] MEDS: LACTULOSE 20 GM/30 ML UDCUP PO SCH (09:09)
[2022-02-16 17:06] LABS: HEMATOCRIT 22.8 % (42-54)
[2022-02-16] MEDS: EPOETIN ALFA-EPBX (ESRD) 10,000 UNIT/ML VIAL SQ SCH (19:49)
[2022-02-17] VITALS (7 sets, daily range): BP systolic 90–141; BP diastolic 27–52
[2022-02-17 04:06] LABS: BASOPHILS % (AUTO) 1.3 % (0.0-5.0); EOSINOPHILS % (AUTO) 6.3 % (0.0-8.0); HEMATOCRIT 24.2 % (42-54); LYMPHOCYTES % (AUTO) 17.7 % (21.0-51.0); MEAN CORPUSCULAR HEMOGLOBIN 30.6 pg (27.0-33.0); MEAN CORPUSCULAR HGB CONC 32.6 g/dL (32.0-36.0); MEAN CORPUSCULAR VOLUME 93.8 fL (79-99); MONOCYTES % (AUTO) 11.7 % (3.0-13.0); NEUTROPHILS % (AUTO) 62.7 % (40.0-77.0); PLATELET COUNT (AUTO) 32 K/uL (130-400); RED BLOOD CELL COUNT(AUTO) 2.58 MIL/uL (4.50-6.20); RED CELL DISTRIBUTION WIDTH 17.1 % (11.0-15.5); WHITE BLOOD COUNT (AUTO) 3.2 K/uL (4.8-10.8)
[2022-02-17 04:17] LABS: POTASSIUM 4.4 mmol/L (3.5-5.1)
[2022-02-17] MEDS: PROPRANOLOL HCL 10 MG TAB PO SCH ×3 (04:37→21:38)
[2022-02-17 04:43] LABS: CREATININE 8.3 mg/dL (0.5-1.5)
[2022-02-17] MEDS: INSULIN HUMULIN R 100 UNIT/ML 3ML SQ SCH ×4 (05:52→21:00)
[2022-02-17] MEDS: CARVEDILOL 12.5 MG TABLET PO SCH ×2 (09:00→21:00)
[2022-02-17] MEDS: PANTOPRAZOLE 40 MG/VIAL IVP SCH ×2 (09:18→21:40)
[2022-02-17] MEDS: LACTULOSE 20 GM/30 ML UDCUP PO SCH (09:22)
[2022-02-17] MEDS: Vitamin B Complex/Vit C/Folic Acid PO SCH (09:22)
[2022-02-17] MEDS: SULFAMETHOX-TMP DS 800/160 TAB PO SCH (09:23)
[2022-02-17] MEDS ORDERED: LACTATED RINGERS 1000ML 1,000 ML IV ONE (21:55)
[2022-02-18] VITALS (20 sets, daily range): BP systolic 102–131; BP diastolic 26–66
[2022-02-18 03:58] LABS: BASOPHILS % (AUTO) 0.9 % (0.0-5.0); EOSINOPHILS % (AUTO) 6.5 % (0.0-8.0); HEMATOCRIT 36.9 % (42-54); LYMPHOCYTES % (AUTO) 16.7 % (21.0-51.0); MEAN CORPUSCULAR HEMOGLOBIN 30.2 pg (27.0-33.0); MEAN CORPUSCULAR HGB CONC 31.7 g/dL (32.0-36.0); MEAN CORPUSCULAR VOLUME 95.3 fL (79-99); NEUTROPHILS % (AUTO) 62.4 % (40.0-77.0); PLATELET COUNT (AUTO) 31 K/uL (130-400); RED BLOOD CELL COUNT(AUTO) 3.87 MIL/uL (4.50-6.20); RED CELL DISTRIBUTION WIDTH 18.6 % (11.0-15.5); WHITE BLOOD COUNT (AUTO) 2.2 K/uL (4.8-10.8)
[2022-02-18 04:07] LABS: INR 1.17 (0.85-1.15); PROTHROMBIN TIME 12.6 SEC (9.6-11.6)
[2022-02-18 04:08] LABS: PARTIAL THROMBOPLASTIN TIME 25.9 SEC (26.3-35.5)
[2022-02-18 04:18] LABS: EOSINOPHILS % (MANUAL) 9 % (1-6); LYMPHOCYTES % (MANUAL) 13 % (22-44); MAN.DIFF COMMENT-IMPRESSION MANUAL DIFFERENTIAL; MONOCYTES % (MANUAL) 12 % (2-9); SEGMENTED NEUTROPHILS % 66 % (40-70)
[2022-02-18 04:19] LABS: PLATELET MORPHOLOGY COMMENT MARKED DECREASE
[2022-02-18] MEDS: PROPRANOLOL HCL 10 MG TAB PO SCH ×3 (04:39→22:00)
[2022-02-18 05:13] LABS: BILIRUBIN,TOTAL 0.5 mg/dL (0.2-1.0); POTASSIUM 4.9 mmol/L (3.5-5.1); TOTAL PROTEIN, SERUM 6.1 g/dL (6.0-8.3)
[2022-02-18 05:46] LABS: CREATININE 9.7 mg/dL (0.5-1.5)
[2022-02-18] MEDS: INSULIN HUMULIN R 100 UNIT/ML 3ML SQ SCH ×4 (05:55→20:16)
[2022-02-18] MEDS: PANTOPRAZOLE 40 MG/VIAL IVP SCH ×2 (10:36→20:26)
[2022-02-18] MEDS: CARVEDILOL 12.5 MG TABLET PO SCH (10:36)
[2022-02-18] MEDS: LACTULOSE 20 GM/30 ML UDCUP PO SCH (10:36)
[2022-02-18] MEDS: Vitamin B Complex/Vit C/Folic Acid PO SCH (10:36)
[2022-02-18] MEDS: HEPARIN 5,000 UNIT VIAL IV PRN (11:54)
[2022-02-18 13:15] LABS: HEMATOCRIT 26.9 % (42-54); MEAN CORPUSCULAR HEMOGLOBIN 30.6 pg (27.0-33.0); MEAN CORPUSCULAR HGB CONC 32.3 g/dL (32.0-36.0); MEAN CORPUSCULAR VOLUME 94.7 fL (79-99); RED BLOOD CELL COUNT(AUTO) 2.84 MIL/uL (4.50-6.20); RED CELL DISTRIBUTION WIDTH 18.5 % (11.0-15.5); WHITE BLOOD COUNT (AUTO) 3.5 K/uL (4.8-10.8)
[2022-02-18] MEDS ORDERED: IOHEXOL 350 MG/ML 100ML INFUS..BTL IV ONE (13:19)
[2022-02-18] MEDS ORDERED: IODIXANOL 320 MG/ML 100 ML VIAL ONE (13:20)
[2022-02-18] MEDS ORDERED: PROPOFOL 10 MG/ML 20ML VIAL IV ONE (13:40)
[2022-02-18] MEDS ORDERED: METOPROLOL TARTRATE 1 MG/ML 5ML VIAL IV ONE (13:40)
[2022-02-18] MEDS ORDERED: FENTANYL CITRATE PF 50 MCG/1 ML 2ML VIAL ONE (13:40)
[2022-02-18] MEDS ORDERED: ROCURONIUM BROMIDE 10MG/1ML 5ML VL ONE (13:41)
[2022-02-18] MEDS ORDERED: LIDOCAINE HCL 400MG/20ML VIAL ONE (13:43)
[2022-02-18] MEDS ORDERED: METOPROLOL TARTRATE 1 MG/ML 5ML VIAL IV PRN ×2 (14:30→16:00)
[2022-02-18] MEDS: EPOETIN ALFA-EPBX (ESRD) 10,000 UNIT/ML VIAL SQ SCH (20:26)
[2022-02-19] VITALS (7 sets, daily range): BP systolic 102–152; BP diastolic 36–67
[2022-02-19 03:51] LABS: BASOPHILS % (AUTO) 1.2 % (0.0-5.0); EOSINOPHILS % (AUTO) 7.3 % (0.0-8.0); HEMATOCRIT 23.2 % (42-54); MEAN CORPUSCULAR HEMOGLOBIN 31.4 pg (27.0-33.0); MEAN CORPUSCULAR HGB CONC 32.8 g/dL (32.0-36.0); MEAN CORPUSCULAR VOLUME 95.9 fL (79-99); MONOCYTES % (AUTO) 14.7 % (3.0-13.0); NEUTROPHILS % (AUTO) 59.4 % (40.0-77.0); PLATELET COUNT (AUTO) 48 K/uL (130-400); RED BLOOD CELL COUNT(AUTO) 2.42 MIL/uL (4.50-6.20); RED CELL DISTRIBUTION WIDTH 18.7 % (11.0-15.5); WHITE BLOOD COUNT (AUTO) 2.6 K/uL (4.8-10.8)
[2022-02-19 04:07] LABS: ALBUMIN 1.8 g/dL (3.5-5.0); BILIRUBIN,TOTAL 0.5 mg/dL (0.2-1.0); POTASSIUM 4.5 mmol/L (3.5-5.1); TOTAL PROTEIN, SERUM 5.6 g/dL (6.0-8.3)
[2022-02-19 04:17] LABS: CREATININE 8.3 mg/dL (0.5-1.5)
[2022-02-19] MEDS: INSULIN HUMULIN R 100 UNIT/ML 3ML SQ SCH ×4 (05:31→21:00)
[2022-02-19] MEDS: PROPRANOLOL HCL 10 MG TAB PO SCH ×4 (05:31→22:37)
[2022-02-19] MEDS: PANTOPRAZOLE 40 MG/VIAL IVP SCH ×2 (09:03→22:26)
[2022-02-19] MEDS: LACTULOSE 20 GM/30 ML UDCUP PO SCH (09:03)
[2022-02-19] MEDS: Vitamin B Complex/Vit C/Folic Acid PO SCH (09:03)
[2022-02-20 00:24] VITALS: BP 130/60
[2022-02-20 04:32] VITALS: BP 114/49
[2022-02-20 04:49] LABS: BASOPHILS % (AUTO) 0.6 % (0.0-5.0); EOSINOPHILS % (AUTO) 5.7 % (0.0-8.0); HEMATOCRIT 21.9 % (42-54); LYMPHOCYTES % (AUTO) 14.7 % (21.0-51.0); MONOCYTES % (AUTO) 14.4 % (3.0-13.0); NEUTROPHILS % (AUTO) 64.3 % (40.0-77.0); PLATELET COUNT (AUTO) 39 K/uL (130-400); RED BLOOD CELL COUNT(AUTO) 2.33 MIL/uL (4.50-6.20); RED CELL DISTRIBUTION WIDTH 18.7 % (11.0-15.5); WHITE BLOOD COUNT (AUTO) 3.5 K/uL (4.8-10.8)
[2022-02-20 05:03] LABS: POTASSIUM 4.4 mmol/L (3.5-5.1)
[2022-02-20 05:07] LABS: CREATININE 9.7 mg/dL (0.5-1.5)
[2022-02-20] MEDS: PROPRANOLOL HCL 10 MG TAB PO SCH ×3 (06:26→20:35)
[2022-02-20] MEDS: INSULIN HUMULIN R 100 UNIT/ML 3ML SQ SCH ×4 (06:31→20:36)
[2022-02-20 08:00] VITALS: BP 111/47
[2022-02-20] MEDS: PANTOPRAZOLE 40 MG/VIAL IVP SCH ×2 (09:39→20:35)
[2022-02-20] MEDS: LACTULOSE 20 GM/30 ML UDCUP PO SCH (09:39)
[2022-02-20] MEDS: Vitamin B Complex/Vit C/Folic Acid PO SCH (09:39)
[2022-02-20 12:00] VITALS: BP 144/48
[2022-02-20 13:23] LABS: HEMATOCRIT 25.5 % (42-54)
[2022-02-20 16:00] VITALS: BP 164/49
[2022-02-20 20:36] VITALS: BP 143/48
[2022-02-21] VITALS (21 sets, daily range): BP systolic 97–154; BP diastolic 32–59
[2022-02-21 05:07] LABS: LYMPHOCYTES % (AUTO) 19.1 % (21.0-51.0); MEAN CORPUSCULAR HEMOGLOBIN 31.3 pg (27.0-33.0); MEAN CORPUSCULAR VOLUME 94.7 fL (79-99); MONOCYTES % (AUTO) 17.2 % (3.0-13.0); NEUTROPHILS % (AUTO) 55.4 % (40.0-77.0); PLATELET COUNT (AUTO) 37 K/uL (130-400); RED BLOOD CELL COUNT(AUTO) 2.43 MIL/uL (4.50-6.20); RED CELL DISTRIBUTION WIDTH 18.4 % (11.0-15.5); WHITE BLOOD COUNT (AUTO) 3.1 K/uL (4.8-10.8)
[2022-02-21 05:15] LABS: POTASSIUM 5.1 mmol/L (3.5-5.1)
[2022-02-21 05:20] LABS: CREATININE 11.3 mg/dL (0.5-1.5)
[2022-02-21] MEDS: PROPRANOLOL HCL 10 MG TAB PO SCH ×3 (06:06→21:21)
[2022-02-21] MEDS: INSULIN HUMULIN R 100 UNIT/ML 3ML SQ SCH ×4 (06:34→21:00)
[2022-02-21] MEDS: Vitamin B Complex/Vit C/Folic Acid PO SCH (09:00)
[2022-02-21] MEDS: LACTULOSE 20 GM/30 ML UDCUP PO SCH (09:00)
[2022-02-21] MEDS: PANTOPRAZOLE 40 MG/VIAL IVP SCH ×2 (09:00→21:17)
[2022-02-21] MEDS: EPOETIN ALFA-EPBX (ESRD) 10,000 UNIT/ML VIAL SQ SCH (21:20)
[2022-02-22 03:28] VITALS: BP 103/23
[2022-02-22 04:45] LABS: HEMATOCRIT 23.9 % (42-54); MEAN CORPUSCULAR HEMOGLOBIN 30.2 pg (27.0-33.0); MEAN CORPUSCULAR HGB CONC 31.4 g/dL (32.0-36.0); MEAN CORPUSCULAR VOLUME 96.4 fL (79-99); PLATELET COUNT (AUTO) 30 K/uL (130-400); RED BLOOD CELL COUNT(AUTO) 2.48 MIL/uL (4.50-6.20); RED CELL DISTRIBUTION WIDTH 18.6 % (11.0-15.5); WHITE BLOOD COUNT (AUTO) 2.4 K/uL (4.8-10.8)
[2022-02-22 05:03] LABS: ALBUMIN 1.8 g/dL (3.5-5.0); BILIRUBIN,TOTAL 0.6 mg/dL (0.2-1.0); MAGNESIUM 2.2 mg/dL (1.80-2.40); PHOSPHORUS 6.1 mg/dL (2.5-4.9); POTASSIUM 4.8 mmol/L (3.5-5.1); TOTAL PROTEIN, SERUM 5.7 g/dL (6.0-8.3)
[2022-02-22 05:09] LABS: CREATININE 9.3 mg/dL (0.5-1.5); EOSINOPHILS % (MANUAL) 20 % (1-6); LYMPHOCYTES % (MANUAL) 12 % (22-44); SEGMENTED NEUTROPHILS % 68 % (40-70)
[2022-02-22 05:10] LABS: MAN.DIFF COMMENT-IMPRESSION MANUAL DIFFERENTIAL; PLATELET MORPHOLOGY COMMENT DECREASED
[2022-02-22] MEDS: PROPRANOLOL HCL 10 MG TAB PO SCH ×3 (06:09→22:03)
[2022-02-22] MEDS: INSULIN HUMULIN R 100 UNIT/ML 3ML SQ SCH ×4 (06:12→21:00)
[2022-02-22 07:30] VITALS: BP 132/44
[2022-02-22] MEDS: LACTULOSE 20 GM/30 ML UDCUP PO SCH (10:18)
[2022-02-22] MEDS: Vitamin B Complex/Vit C/Folic Acid PO SCH (10:18)
[2022-02-22] MEDS: PANTOPRAZOLE 40 MG/VIAL IVP SCH ×2 (10:19→22:02)
[2022-02-22 11:20] VITALS: BP 113/44
[2022-02-22 15:30] VITALS: BP 137/43
[2022-02-22 20:03] VITALS: BP 137/57
[2022-02-22 22:53] VITALS: BP 128/45
[2022-02-23] VITALS (19 sets, daily range): BP systolic 97–160; BP diastolic 38–74
[2022-02-23 04:34] LABS: MEAN CORPUSCULAR HGB CONC 32.9 g/dL (32.0-36.0); MEAN CORPUSCULAR VOLUME 94.1 fL (79-99); RED BLOOD CELL COUNT(AUTO) 2.55 MIL/uL (4.50-6.20); RED CELL DISTRIBUTION WIDTH 18.1 % (11.0-15.5); WHITE BLOOD COUNT (AUTO) 2.6 K/uL (4.8-10.8)
[2022-02-23 04:53] LABS: POTASSIUM 5.4 mmol/L (3.5-5.1)
[2022-02-23 05:09] LABS: CREATININE 10.6 mg/dL (0.5-1.5)
[2022-02-23] MEDS: PROPRANOLOL HCL 10 MG TAB PO SCH ×3 (06:11→22:00)
[2022-02-23] MEDS: INSULIN HUMULIN R 100 UNIT/ML 3ML SQ SCH ×4 (07:30→21:00)
[2022-02-23] MEDS: PANTOPRAZOLE 40 MG/VIAL IVP SCH ×2 (09:05→21:19)
[2022-02-23] MEDS: LACTULOSE 20 GM/30 ML UDCUP PO SCH (09:05)
[2022-02-23] MEDS: Vitamin B Complex/Vit C/Folic Acid PO SCH (09:06)
[2022-02-23] MEDS: EPOETIN ALFA-EPBX (ESRD) 10,000 UNIT/ML VIAL SQ SCH (22:01)
[2022-02-24] VITALS: BP 138/65
[2022-02-24 04:00] VITALS: BP 131/52
[2022-02-24 05:07] LABS: MEAN CORPUSCULAR HEMOGLOBIN 30.7 pg (27.0-33.0); MEAN CORPUSCULAR HGB CONC 32.4 g/dL (32.0-36.0); MEAN CORPUSCULAR VOLUME 94.7 fL (79-99); PLATELET COUNT (AUTO) 34 K/uL (130-400); RED BLOOD CELL COUNT(AUTO) 2.64 MIL/uL (4.50-6.20)
[2022-02-24 05:15] LABS: PHOSPHORUS 5.3 mg/dL (2.5-4.9); POTASSIUM 5.3 mmol/L (3.5-5.1)
[2022-02-24 06:01] LABS: CREATININE 9.1 mg/dL (0.5-1.5)
[2022-02-24 06:06] LABS: EOSINOPHILS % (MANUAL) 4 % (1-6); LYMPHOCYTES % (MANUAL) 32 % (22-44); MONOCYTES % (MANUAL) 8 % (2-9); SEGMENTED NEUTROPHILS % 56 % (40-70)
[2022-02-24 06:07] LABS: MAN.DIFF COMMENT-IMPRESSION MANUAL DIFFERENTIAL; PLATELET MORPHOLOGY COMMENT DECREASED
[2022-02-24] MEDS: PROPRANOLOL HCL 10 MG TAB PO SCH ×2 (07:11→12:06)
[2022-02-24 07:30] VITALS: BP 128/32
[2022-02-24] MEDS: INSULIN HUMULIN R 100 UNIT/ML 3ML SQ SCH ×2 (07:30→11:30)
[2022-02-24] MEDS: Vitamin B Complex/Vit C/Folic Acid PO SCH (09:24)
[2022-02-24] MEDS: PANTOPRAZOLE 40 MG/VIAL IVP SCH (09:24)
[2022-02-24] MEDS: LACTULOSE 20 GM/30 ML UDCUP PO SCH (09:24)
[2022-02-24 11:00] VITALS: BP 122/40
[2022-02-24 16:00] VITALS: BP 149/44
== END 2022-02-24 16:45 | disposition short-term general hospital (02) | DRG 853 ==
LOC: EDH 12:11 → EDHIP 16:40 → 3BH 17:55 → 2CH 02-03 09:37 → 4CH 02-05 20:03 → 4BH 02-19 19:45
PROVIDERS: ADMIT Internal Medicine; ATTEND Internal Medicine
PROC: 0JBQ0ZZ Excision of Right Foot Subcutaneous Tissue and Fascia, Open Approach (ICD-10-PCS; principal; 2022-01-31)
PROC: 5A1D70Z Performance of Urinary Filtration, Intermittent, Less than 6 Hours Per Day (ICD-10-PCS; 2022-01-31)
PROC: 30233N1 Transfusion of Nonautologous Red Blood Cells into Peripheral Vein, Percutaneous Approach (ICD-10-PCS; 2022-02-01)
PROC: 5A1D70Z Performance of Urinary Filtration, Intermittent, Less than 6 Hours Per Day (ICD-10-PCS; 2022-02-02)
PROC: 30233K1 Transfusion of Nonautologous Frozen Plasma into Peripheral Vein, Percutaneous Approach (ICD-10-PCS; 2022-02-03)
PROC: 30233R1 Transfusion of Nonautologous Platelets into Peripheral Vein, Percutaneous Approach (ICD-10-PCS; 2022-02-03)
PROC: 5A1D70Z Performance of Urinary Filtration, Intermittent, Less than 6 Hours Per Day (ICD-10-PCS; 2022-02-04)
PROC: 0DJ08ZZ Inspection of Upper Intestinal Tract, Via Natural or Artificial Opening Endoscopic (ICD-10-PCS; 2022-02-04)
PROC: 5A1D70Z Performance of Urinary Filtration, Intermittent, Less than 6 Hours Per Day (ICD-10-PCS; 2022-02-07)
PROC: 5A1D70Z Performance of Urinary Filtration, Intermittent, Less than 6 Hours Per Day (ICD-10-PCS; 2022-02-09)
PROC: 30233N1 Transfusion of Nonautologous Red Blood Cells into Peripheral Vein, Percutaneous Approach (ICD-10-PCS; 2022-02-11)
PROC: 5A1D70Z Performance of Urinary Filtration, Intermittent, Less than 6 Hours Per Day (ICD-10-PCS; 2022-02-11)
PROC: 5A1D70Z Performance of Urinary Filtration, Intermittent, Less than 6 Hours Per Day (ICD-10-PCS; 2022-02-14)
PROC: 5A1D70Z Performance of Urinary Filtration, Intermittent, Less than 6 Hours Per Day (ICD-10-PCS; 2022-02-16)
PROC: 30233R1 Transfusion of Nonautologous Platelets into Peripheral Vein, Percutaneous Approach (ICD-10-PCS; 2022-02-18)
PROC: 5A1D70Z Performance of Urinary Filtration, Intermittent, Less than 6 Hours Per Day (ICD-10-PCS; 2022-02-18)
PROC: 5A1D70Z Performance of Urinary Filtration, Intermittent, Less than 6 Hours Per Day (ICD-10-PCS; 2022-02-21)
PROC: 5A1D70Z Performance of Urinary Filtration, Intermittent, Less than 6 Hours Per Day (ICD-10-PCS; 2022-02-23)
DX: A41.9 Sepsis, unspecified organism (principal); N18.6 End stage renal disease; J96.01 Acute respiratory failure with hypoxia; I85.11 Secondary esophageal varices with bleeding; I12.0 Hypertensive chronic kidney disease with stage 5 chronic kidney disease or end stage renal disease; K76.6 Portal hypertension; M86.9 Osteomyelitis, unspecified; Z68.42 Body mass index [BMI] 45.0-49.9, adult; N25.81 Secondary hyperparathyroidism of renal origin; D62 Acute posthemorrhagic anemia; I48.92 Unspecified atrial flutter; L03.115 Cellulitis of right lower limb; L03.116 Cellulitis of left lower limb; K92.2 Gastrointestinal hemorrhage, unspecified; J45.909 Unspecified asthma, uncomplicated; D64.9 Anemia, unspecified; E87.5 Hyperkalemia; E11.22 Type 2 diabetes mellitus with diabetic chronic kidney disease; I25.10 Atherosclerotic heart disease of native coronary artery without angina pectoris; E11.610 Type 2 diabetes mellitus with diabetic neuropathic arthropathy; E11.42 Type 2 diabetes mellitus with diabetic polyneuropathy; Z20.822 Contact with and (suspected) exposure to COVID-19; E11.51 Type 2 diabetes mellitus with diabetic peripheral angiopathy without gangrene; E78.00 Pure hypercholesterolemia, unspecified; E11.621 Type 2 diabetes mellitus with foot ulcer; L97.519 Non-pressure chronic ulcer of other part of right foot with unspecified severity; D63.1 Anemia in chronic kidney disease; D69.6 Thrombocytopenia, unspecified; E66.01 Morbid (severe) obesity due to excess calories; E11.69 Type 2 diabetes mellitus with other specified complication; K70.31 Alcoholic cirrhosis of liver with ascites; E78.5 Hyperlipidemia, unspecified; I48.0 Paroxysmal atrial fibrillation; Z99.2 Dependence on renal dialysis; Z91.19 Patient's noncompliance with other medical treatment and regimen; Z51.5 Encounter for palliative care; Z74.01 Bed confinement status; Z79.4 Long term (current) use of insulin; Z79.899 Other long term (current) drug therapy; Z82.49 Family history of ischemic heart disease and other diseases of the circulatory system; Z83.3 Family history of diabetes mellitus; E87.70 Fluid overload, unspecified
CPT/HCPCS: 36415; 36430; 36600; 43235; 71045; 73610; 73630; 73718; 74170; 74176; 76700; 80048; 80053; 80076; 82105; 82140; 82270; 82306; 82330; 82607; 82728; 82746; 82803; 82948; 83540; 83550; 83605; 83735; 83880; 83970; 84100; 84132; 84145; 84443; 84484; 85014; 85018; 85025; 85027; 85045; 85049; 85370; 85384; 85610; 85651; 85730; 86704; 86706; 86850; 86900; 86901; 86923; 86927; 87040; 87070; 87076; 87077; 87186; 87340; 87635; 87804; 90935; 93005; 93306; 93356; 93926; 93970; A4606; C9113; C9803; G0378; J0696; J1644; J1815; J1885; J2020; J2354; J2543; J2597; J2704; J2765; J3010; J3430; J3490; J7030; J7050; J7060; J7120; P9016; P9017; P9034; Q9967

== ENCOUNTER 2022-03-05 08:38 | Inpatient (IN) | payer MEDICARE ==
[~2022-03-05] VITALS: Ht 177.8 cm; Wt 126.1 kg
[2022-03-05] VITALS (30 sets, daily range): BP systolic 89–130; BP diastolic 34–76
[2022-03-05] MEDS ORDERED: 0.9% NACL 500ML IV.SOLN 500 ML IV SCH (09:00)
[2022-03-05 09:04] LABS: BASOPHILS % (AUTO) 0.3 % (0.0-5.0); EOSINOPHILS % (AUTO) 0.2 % (0.0-8.0); HEMATOCRIT 24.1 % (42-54); MEAN CORPUSCULAR HEMOGLOBIN 30.6 pg (27.0-33.0); MEAN CORPUSCULAR HGB CONC 32.8 g/dL (32.0-36.0); MEAN CORPUSCULAR VOLUME 93.4 fL (79-99); MONOCYTES % (AUTO) 9.7 % (3.0-13.0); NEUTROPHILS % (AUTO) 84.4 % (40.0-77.0); PLATELET COUNT (AUTO) 55 K/uL (130-400); RED BLOOD CELL COUNT(AUTO) 2.58 MIL/uL (4.50-6.20); RED CELL DISTRIBUTION WIDTH 18.8 % (11.0-15.5); WHITE BLOOD COUNT (AUTO) 20.4 K/uL (4.8-10.8)
[2022-03-05] MEDS ORDERED: ZOSYN 3.375GM+NS 50ML 50 ML ONE (09:14)
[2022-03-05] MEDS ORDERED: 0.9%NACL 50ML 50 ML IV ONE (09:15)
[2022-03-05 09:16] LABS: INR 1.47 (0.85-1.15); PROTHROMBIN TIME 15.5 SEC (9.6-11.6)
[2022-03-05 09:17] LABS: PARTIAL THROMBOPLASTIN TIME 35.1 SEC (26.3-35.5)
[2022-03-05 09:18] LABS: CREATININE 5.9 mg/dL (0.5-1.5); POTASSIUM 3.9 mmol/L (3.5-5.1)
[2022-03-05 09:25] LABS: ALBUMIN 1.6 g/dL (3.5-5.0); BILIRUBIN,TOTAL 1.5 mg/dL (0.2-1.0); TOTAL PROTEIN, SERUM 5.8 g/dL (6.0-8.3)
[2022-03-05] MEDS ORDERED: ZOSYN 3.375GM +NS 50ML IV SCH (09:30)
[2022-03-05 09:34] LABS: PLATELET MORPHOLOGY COMMENT DECREASED
[2022-03-05 09:36] LABS: B-TYPE NATRIURETIC PEPTIDE 656 pg/mL (0-100)
[2022-03-05] MEDS ORDERED: MIDODRINE HCL 5 MG TABLET ONE (11:53)
[2022-03-05] MEDS ORDERED: PHENYLEPHRINE HCL 10 MG in 0.9% NACL 250ML 250 ML IV PRN (12:00)
[2022-03-05] MEDS ORDERED: MIDODRINE HCL 5 MG TABLET PO SCH (12:00)
[2022-03-05] MEDS ORDERED: 0.9%NACL 1000ML 250 ML IV ONE (12:00)
[2022-03-05] MEDS ORDERED: PHARMACY COMMUNICATION MISC SCH (12:00)
[2022-03-05] MEDS: LINEZOLID 600 MG/ISO-OSM 300 ML IV SCH (12:17)
[2022-03-05] MEDS ORDERED: VANCOMYCIN PROTOCOL PER PHARMACY IV SCH (12:30)
[2022-03-05] MEDS ORDERED: VANCOMYCIN 1G/250ML KIT 250 ML IV SCH (13:00)
[2022-03-05] MEDS: MIDODRINE HCL 5 MG TABLET PO SCH ×2 (14:30→20:56)
[2022-03-05] MEDS ORDERED: FOLI0.8T2 PO (20:14)
[2022-03-05] MEDS ORDERED: CARV12.511 PO (20:15)
[2022-03-05] MEDS ORDERED: SEVE0.8P3 PO (20:17)
[2022-03-05] MEDS: ZOSYN 3.375GM +NS 50ML IV SCH (20:53)
[2022-03-05] MEDS: SULFAMETHOX-TMP DS 800/160 TAB PO SCH (20:56)
[2022-03-06] VITALS (46 sets, daily range): BP systolic 101–171; BP diastolic 28–106
[2022-03-06] MEDS: LINEZOLID 600 MG/ISO-OSM 300 ML IV SCH ×2 (00:02→13:03)
[2022-03-06 07:25] LABS: BASOPHILS % (AUTO) 0.4 % (0.0-5.0); EOSINOPHILS % (AUTO) 1.9 % (0.0-8.0); HEMATOCRIT 24.8 % (42-54); LYMPHOCYTES % (AUTO) 3.4 % (21.0-51.0); MEAN CORPUSCULAR HEMOGLOBIN 30.2 pg (27.0-33.0); MEAN CORPUSCULAR HGB CONC 32.7 g/dL (32.0-36.0); MEAN CORPUSCULAR VOLUME 92.5 fL (79-99); MONOCYTES % (AUTO) 8.8 % (3.0-13.0); NEUTROPHILS % (AUTO) 84.7 % (40.0-77.0); PLATELET COUNT (AUTO) 53 K/uL (130-400); RED BLOOD CELL COUNT(AUTO) 2.68 MIL/uL (4.50-6.20); RED CELL DISTRIBUTION WIDTH 19.1 % (11.0-15.5); WHITE BLOOD COUNT (AUTO) 16.3 K/uL (4.8-10.8)
[2022-03-06 08:40] LABS: CREATININE 6.7 mg/dL (0.5-1.5); POTASSIUM 4.1 mmol/L (3.5-5.1)
[2022-03-06] MEDS: SULFAMETHOX-TMP DS 800/160 TAB PO SCH (08:44)
[2022-03-06] MEDS: ZOSYN 3.375GM +NS 50ML IV SCH ×2 (08:45→20:44)
[2022-03-06] MEDS: MIDODRINE HCL 5 MG TABLET PO SCH ×3 (08:49→20:43)
[2022-03-06] MEDS ORDERED: VANCOMYCIN 750MG VIAL IVPB SCH (13:00)
[2022-03-06] MEDS ORDERED: 0.9%NACL 50ML 50 ML IV ONE (20:19)
[2022-03-06] MEDS: DRONEDARONE HYDROCHLORIDE 400 MG TABLET PO SCH (20:43)
[2022-03-07] VITALS (23 sets, daily range): BP systolic 90–131; BP diastolic 35–71
[2022-03-07] MEDS: LINEZOLID 600 MG/ISO-OSM 300 ML IV SCH ×2 (00:41→11:37)
[2022-03-07 06:49] LABS: BASOPHILS % (AUTO) 0.4 % (0.0-5.0); EOSINOPHILS % (AUTO) 2.1 % (0.0-8.0); HEMATOCRIT 25.7 % (42-54); LYMPHOCYTES % (AUTO) 5.2 % (21.0-51.0); MEAN CORPUSCULAR HEMOGLOBIN 30.8 pg (27.0-33.0); MEAN CORPUSCULAR HGB CONC 32.7 g/dL (32.0-36.0); MEAN CORPUSCULAR VOLUME 94.1 fL (79-99); MONOCYTES % (AUTO) 8.4 % (3.0-13.0); NEUTROPHILS % (AUTO) 82.5 % (40.0-77.0); PLATELET COUNT (AUTO) 63 K/uL (130-400); RED BLOOD CELL COUNT(AUTO) 2.73 MIL/uL (4.50-6.20); RED CELL DISTRIBUTION WIDTH 18.8 % (11.0-15.5); WHITE BLOOD COUNT (AUTO) 12.6 K/uL (4.8-10.8)
[2022-03-07 07:32] LABS: CREATININE 7.6 mg/dL (0.5-1.5); POTASSIUM 4.9 mmol/L (3.5-5.1)
[2022-03-07 07:36] LABS: CRP QUANTITATIVE 129.2 mg/L (0.00-9.0); MAGNESIUM 2.1 mg/dL (1.80-2.40)
[2022-03-07] MEDS: MIDODRINE HCL 5 MG TABLET PO SCH ×3 (08:31→20:21)
[2022-03-07] MEDS: ZOSYN 3.375GM +NS 50ML IV SCH ×2 (08:31→20:21)
[2022-03-07] MEDS: DRONEDARONE HYDROCHLORIDE 400 MG TABLET PO SCH (08:31)
[2022-03-07] MEDS ORDERED: DIGOXIN 250 MCG/ML 2ML AMP IV SCH (09:00)
[2022-03-07] MEDS: SEVELAMER HCL 800 MG TABLET PO SCH ×3 (09:21→15:23)
[2022-03-07] MEDS: Vitamin B Complex/Vit C/Folic Acid PO SCH (09:21)
[2022-03-07] MEDS: FAMOTIDINE 20MG TAB PO SCH (11:38)
[2022-03-07] MEDS: SIMETHICONE 80 MG TAB.CHEW PO PRN (11:38)
[2022-03-07] MEDS ORDERED: HEPARIN 5,000 UNIT VIAL IJ PRN (15:00)
[2022-03-07 18:17] LABS: HEPATITIS B SURFACE ANTIGEN Non-Reactive (Negative)
[2022-03-07] MEDS: EPOETIN ALFA-EPBX (ESRD) 10,000 UNIT/ML VIAL SQ SCH (20:21)
[2022-03-08] VITALS (9 sets, daily range): BP systolic 78–173; BP diastolic 41–72
[2022-03-08 04:02] LABS: HEMATOCRIT 24.7 % (42-54); MEAN CORPUSCULAR HEMOGLOBIN 29.6 pg (27.0-33.0); MEAN CORPUSCULAR HGB CONC 32.4 g/dL (32.0-36.0); MEAN CORPUSCULAR VOLUME 91.5 fL (79-99); RED BLOOD CELL COUNT(AUTO) 2.7 MIL/uL (4.50-6.20); RED CELL DISTRIBUTION WIDTH 18.6 % (11.0-15.5); WHITE BLOOD COUNT (AUTO) 11.1 K/uL (4.8-10.8)
[2022-03-08 04:03] LABS: CREATININE 6.4 mg/dL (0.5-1.5); PHOSPHORUS 4.9 mg/dL (2.5-4.9); POTASSIUM 4.6 mmol/L (3.5-5.1)
[2022-03-08] MEDS: ZOSYN 3.375GM +NS 50ML IV SCH (08:02)
[2022-03-08] MEDS: SEVELAMER HCL 800 MG TABLET PO SCH ×3 (08:07→16:22)
[2022-03-08] MEDS: Vitamin B Complex/Vit C/Folic Acid PO SCH (08:07)
[2022-03-08] MEDS: SIMETHICONE 80 MG TAB.CHEW PO PRN ×3 (08:07→20:57)
[2022-03-08] MEDS: MIDODRINE HCL 5 MG TABLET PO SCH (08:07)
[2022-03-08] MEDS: FAMOTIDINE 20MG TAB PO SCH (08:07)
[2022-03-08] MEDS ORDERED: MEROPENEM 1 GM VIAL IVP SCH (10:00)
[2022-03-08] MEDS: SULFAMETHOX-TMP DS 800/160 TAB PO SCH ×2 (11:46→20:39)
[2022-03-08] MEDS: MEROPENEM 500 MG VIAL IVP SCH ×2 (11:46→23:17)
[2022-03-08] MEDS: DIGOXIN 125 MCG TABLET PO SCH (16:22)
[2022-03-09] VITALS (24 sets, daily range): BP systolic 100–148; BP diastolic 37–79
[2022-03-09 04:15] LABS: HEMATOCRIT 24.8 % (42-54); MEAN CORPUSCULAR HEMOGLOBIN 30.8 pg (27.0-33.0); MEAN CORPUSCULAR HGB CONC 33.9 g/dL (32.0-36.0); MEAN CORPUSCULAR VOLUME 90.8 fL (79-99); RED BLOOD CELL COUNT(AUTO) 2.73 MIL/uL (4.50-6.20); RED CELL DISTRIBUTION WIDTH 18.3 % (11.0-15.5); WHITE BLOOD COUNT (AUTO) 7.6 K/uL (4.8-10.8)
[2022-03-09 04:32] LABS: CREATININE 7.6 mg/dL (0.5-1.5); MAGNESIUM 2.2 mg/dL (1.80-2.40); PHOSPHORUS 5.9 mg/dL (2.5-4.9); POTASSIUM 4.9 mmol/L (3.5-5.1)
[2022-03-09] MEDS: SEVELAMER HCL 800 MG TABLET PO SCH ×3 (08:40→17:20)
[2022-03-09] MEDS: Vitamin B Complex/Vit C/Folic Acid PO SCH (08:40)
[2022-03-09] MEDS: FAMOTIDINE 20MG TAB PO SCH (08:41)
[2022-03-09] MEDS: SULFAMETHOX-TMP DS 800/160 TAB PO SCH ×2 (08:41→21:27)
[2022-03-09] MEDS: MEROPENEM 500 MG VIAL IVP SCH ×2 (13:13→22:09)
[2022-03-09] MEDS: EPOETIN ALFA-EPBX (ESRD) 10,000 UNIT/ML VIAL SQ SCH (21:27)
[2022-03-10] VITALS: BP 123/66
[2022-03-10 04:00] VITALS: BP 93/43
[2022-03-10 04:05] LABS: HEMATOCRIT 21.4 % (42-54); MEAN CORPUSCULAR HEMOGLOBIN 30.2 pg (27.0-33.0); MEAN CORPUSCULAR HGB CONC 32.7 g/dL (32.0-36.0); MEAN CORPUSCULAR VOLUME 92.2 fL (79-99); RED BLOOD CELL COUNT(AUTO) 2.32 MIL/uL (4.50-6.20); RED CELL DISTRIBUTION WIDTH 18.1 % (11.0-15.5)
[2022-03-10 04:22] LABS: CREATININE 6.7 mg/dL (0.5-1.5); POTASSIUM 4.7 mmol/L (3.5-5.1)
[2022-03-10 08:00] VITALS: BP 89/56
[2022-03-10] MEDS: Vitamin B Complex/Vit C/Folic Acid PO SCH (08:22)
[2022-03-10] MEDS: SEVELAMER HCL 800 MG TABLET PO SCH ×3 (08:22→16:47)
[2022-03-10] MEDS: FAMOTIDINE 20MG TAB PO SCH (08:22)
[2022-03-10] MEDS: SULFAMETHOX-TMP DS 800/160 TAB PO SCH (08:22)
[2022-03-10] MEDS: MEROPENEM 500 MG VIAL IVP SCH (11:15)
[2022-03-10 12:00] VITALS: BP 119/45
[2022-03-10] MEDS ORDERED: DIGO125T71 PO (14:48)
[2022-03-10 16:00] VITALS: BP 118/46
[2022-03-10] MEDS: DIGOXIN 125 MCG TABLET PO SCH (16:47)
[2022-03-10] MEDS ORDERED: SULF1TAB42 PO (18:01)
[2022-03-10] MEDS ORDERED: LEVO500T90 PO (18:01)
== END 2022-03-10 20:19 | disposition home or self-care (01) | DRG 871 ==
LOC: EDH 08:38 → EDHIP 11:34 → 2CH 14:52 → 2DH 03-06 16:24
PROVIDERS: ADMIT Internal Medicine; ATTEND Internal Medicine
PROC: 5A1D70Z Performance of Urinary Filtration, Intermittent, Less than 6 Hours Per Day (ICD-10-PCS; principal; 2022-03-07)
PROC: 5A1D70Z Performance of Urinary Filtration, Intermittent, Less than 6 Hours Per Day (ICD-10-PCS; 2022-03-09)
DX: A41.9 Sepsis, unspecified organism (principal); R65.21 Severe sepsis with septic shock; N18.6 End stage renal disease; I85.00 Esophageal varices without bleeding; I12.0 Hypertensive chronic kidney disease with stage 5 chronic kidney disease or end stage renal disease; K92.2 Gastrointestinal hemorrhage, unspecified; I48.92 Unspecified atrial flutter; M86.671 Other chronic osteomyelitis, right ankle and foot; I85.10 Secondary esophageal varices without bleeding; K76.6 Portal hypertension; L03.90 Cellulitis, unspecified; D69.6 Thrombocytopenia, unspecified; Z99.2 Dependence on renal dialysis; D64.9 Anemia, unspecified; E11.22 Type 2 diabetes mellitus with diabetic chronic kidney disease; E11.51 Type 2 diabetes mellitus with diabetic peripheral angiopathy without gangrene; E11.610 Type 2 diabetes mellitus with diabetic neuropathic arthropathy; E11.621 Type 2 diabetes mellitus with foot ulcer; E11.69 Type 2 diabetes mellitus with other specified complication; E11.622 Type 2 diabetes mellitus with other skin ulcer; E78.5 Hyperlipidemia, unspecified; I25.10 Atherosclerotic heart disease of native coronary artery without angina pectoris; E78.00 Pure hypercholesterolemia, unspecified; K70.30 Alcoholic cirrhosis of liver without ascites; L97.519 Non-pressure chronic ulcer of other part of right foot with unspecified severity; L97.529 Non-pressure chronic ulcer of other part of left foot with unspecified severity; E66.01 Morbid (severe) obesity due to excess calories; I44.30 Unspecified atrioventricular block; J45.909 Unspecified asthma, uncomplicated; I48.0 Paroxysmal atrial fibrillation; Z82.49 Family history of ischemic heart disease and other diseases of the circulatory system; Z83.3 Family history of diabetes mellitus
CPT/HCPCS: 36415; 70450; 70486; 71045; 80048; 80053; 82270; 82550; 82948; 83605; 83735; 83880; 84100; 84145; 84484; 85018; 85025; 85027; 85610; 85730; 86140; 86704; 86706; 86850; 86900; 86901; 87040; 87070; 87076; 87077; 87186; 87340; 90935; 93005; 99291; G0378; J1160; J1644; J2020; J2185; J2543

== ENCOUNTER 2022-05-18 15:15 | Emergency (ER) | payer MEDICARE ==
[~2022-05-18] VITALS: Ht 177.8 cm; Wt 138.3 kg
[~2022-05-18 15:15] MED LIST changes: +AMOX-426 PO; -CARV12.580 PO; -CHOL100046 PO; +DIGO125T71 PO; +FOLI0.8T2 PO; -FOLI1TAB85 PO; -LACT10SO9 PO; +LEVO500T90 PO; +SEVE0.8P3 PO; -SEVE800T7 PO; -SIMV-43 PO; +SULF1TAB42 PO
[2022-05-18] MEDS: LIDOCAINE HCL 1% MDV 50ML VIAL ONE (15:59)
[2022-05-18] MEDS: ALBUMIN (HUMAN) 25% 200 ML IV ONE (15:59)
[2022-05-18 16:10] LABS: BASOPHILS % (AUTO) 0.8 % (0.0-5.0); EOSINOPHILS % (AUTO) 3.5 % (0.0-8.0); LYMPHOCYTES % (AUTO) 19.6 % (21.0-51.0); MEAN CORPUSCULAR HEMOGLOBIN 31.4 pg (27.0-33.0); MEAN CORPUSCULAR HGB CONC 32.3 g/dL (32.0-36.0); MEAN CORPUSCULAR VOLUME 97.5 fL (79-99); MONOCYTES % (AUTO) 12.1 % (3.0-13.0); NEUTROPHILS % (AUTO) 63.2 % (40.0-77.0); PLATELET COUNT (AUTO) 63 K/uL (130-400); RED BLOOD CELL COUNT(AUTO) 3.18 MIL/uL (4.50-6.20); RED CELL DISTRIBUTION WIDTH 16.3 % (11.0-15.5); WHITE BLOOD COUNT (AUTO) 3.7 K/uL (4.8-10.8)
[2022-05-18 16:17] LABS: INR 1.08 (0.85-1.15); PROTHROMBIN TIME 11.7 SEC (9.6-11.6)
[2022-05-18 16:18] LABS: CREATININE 5.2 mg/dL (0.5-1.5); PARTIAL THROMBOPLASTIN TIME 29.4 SEC (26.3-35.5); POTASSIUM 3.9 mmol/L (3.5-5.1)
[2022-05-18 16:23] LABS: ALBUMIN 2.3 g/dL (3.5-5.0); BILIRUBIN,TOTAL 0.7 mg/dL (0.2-1.0); TOTAL PROTEIN, SERUM 7.1 g/dL (6.0-8.3)
[2022-05-18] MEDS: ALBUMIN (HUMAN) 25% 100 ML IV ONE (17:00)
[2022-05-18 17:09] VITALS: BP 110/68
[2022-05-18 20:15] LABS: APPEARANCE BODY FLUID CLEAR (CLEAR); COLOR,BODY FLUID YELLOW (LT YELLOW); SPECIMENTYPE,BODY FLUID ASCITES; TOTAL VOLUME,BODY FLUID 14500 mL
[2022-05-18 20:16] LABS: BODY FLUID RBC 160 /cu. mm.; BODY FLUID WBC 159 /cu. mm.
[2022-05-18 21:54] LABS: BF EOSINOPHIL 1 %; BF LYMPHOCYTE 9 %; BF MESOTHELIAL 2 %; BF MONOCYTE 2 %; BF OTHER CELLS 5
== END 2022-05-18 17:33 | disposition home or self-care (01) ==
LOC: EDH 15:15
DX: R14.0 Abdominal distension (gaseous) (principal); R18.8 Other ascites; E11.9 Type 2 diabetes mellitus without complications; E78.00 Pure hypercholesterolemia, unspecified; I10 Essential (primary) hypertension; Z98.890 Other specified postprocedural states; Z60.2 Problems related to living alone; Z79.899 Other long term (current) drug therapy
CPT/HCPCS: 36415; 49083; 80053; 85025; 85610; 85730; 87071; 87205; 89051; 96365; 99285; C1729; J3490; P9046 ×2

== ENCOUNTER 2022-06-15 13:47 | Emergency (ER) | payer MEDICARE ==
[~2022-06-15] VITALS: Ht 177.8 cm; Wt 131.5 kg
[~2022-06-15 13:47] MED LIST changes: +LEVO-70 PO; -LEVO500T90 PO
[2022-06-15] MEDS ORDERED: ALBUMIN (HUMAN) 25% 300 ML IV ONE (14:16)
[2022-06-15 14:22] LABS: BASOPHILS % (AUTO) 1.4 % (0.0-5.0); EOSINOPHILS % (AUTO) 3.3 % (0.0-8.0); HEMATOCRIT 28.7 % (42-54); LYMPHOCYTES % (AUTO) 15.7 % (21.0-51.0); MEAN CORPUSCULAR HEMOGLOBIN 31.4 pg (27.0-33.0); MEAN CORPUSCULAR HGB CONC 32.4 g/dL (32.0-36.0); NEUTROPHILS % (AUTO) 69.2 % (40.0-77.0); PLATELET COUNT (AUTO) 56 K/uL (130-400); RED BLOOD CELL COUNT(AUTO) 2.96 MIL/uL (4.50-6.20); RED CELL DISTRIBUTION WIDTH 17.3 % (11.0-15.5); WHITE BLOOD COUNT (AUTO) 4.9 K/uL (4.8-10.8)
[2022-06-15 14:29] LABS: CREATININE 4.7 mg/dL (0.5-1.5); POTASSIUM 3.9 mmol/L (3.5-5.1)
[2022-06-15 14:30] LABS: INR 1.21 (0.85-1.15)
[2022-06-15 14:36] LABS: ALBUMIN 2.1 g/dL (3.5-5.0); TOTAL PROTEIN, SERUM 6.5 g/dL (6.0-8.3)
[2022-06-15 16:19] VITALS: BP 107/30
== END 2022-06-15 16:28 | disposition home or self-care (01) ==
LOC: EDH 13:47
DX: R14.0 Abdominal distension (gaseous) (principal); K74.60 Unspecified cirrhosis of liver; E78.00 Pure hypercholesterolemia, unspecified; I12.0 Hypertensive chronic kidney disease with stage 5 chronic kidney disease or end stage renal disease; E11.22 Type 2 diabetes mellitus with diabetic chronic kidney disease; N18.6 End stage renal disease; Z89.412 Acquired absence of left great toe; Z89.411 Acquired absence of right great toe; Z60.2 Problems related to living alone; Z99.2 Dependence on renal dialysis
CPT/HCPCS: 49083; 99285; 96365; 80053; 85025; 85610; 36415; P9046; C1729

== ENCOUNTER 2022-06-29 11:36 | Emergency (ER) | payer MEDICARE ==
[~2022-06-29] VITALS: Ht 172.7 cm; Wt 131.1 kg
[2022-06-29] MEDS ORDERED: IPRATROPIUM/ALBUTEROL SULFATE 3 ML SOLUTION IH ONE (12:00)
[2022-06-29 12:09] LABS: BASOPHILS % (AUTO) 0.7 % (0.0-5.0); EOSINOPHILS % (AUTO) 1.5 % (0.0-8.0); HEMATOCRIT 29.6 % (42-54); LYMPHOCYTES % (AUTO) 12.7 % (21.0-51.0); MEAN CORPUSCULAR HEMOGLOBIN 30.6 pg (27.0-33.0); MEAN CORPUSCULAR HGB CONC 31.1 g/dL (32.0-36.0); MEAN CORPUSCULAR VOLUME 98.3 fL (79-99); MONOCYTES % (AUTO) 11.8 % (3.0-13.0); NEUTROPHILS % (AUTO) 72.9 % (40.0-77.0); PLATELET COUNT (AUTO) 76 K/uL (130-400); RED BLOOD CELL COUNT(AUTO) 3.01 MIL/uL (4.50-6.20); RED CELL DISTRIBUTION WIDTH 17.8 % (11.0-15.5); WHITE BLOOD COUNT (AUTO) 6.8 K/uL (4.8-10.8)
[2022-06-29 12:22] LABS: CREATININE 4.1 mg/dL (0.5-1.5)
[2022-06-29 12:25] LABS: INR 1.23 (0.85-1.15); PROTHROMBIN TIME 13.2 SEC (9.6-11.6)
[2022-06-29 12:26] LABS: ALBUMIN 1.9 g/dL (3.5-5.0); TOTAL PROTEIN, SERUM 6.5 g/dL (6.0-8.3)
[2022-06-29] MEDS ORDERED: ALBU8.5H8 IH (13:17)
[2022-06-29 13:37] VITALS: BP 92/57
== END 2022-06-29 13:39 | disposition home or self-care (01) ==
LOC: EDH 11:36
DX: I12.0 Hypertensive chronic kidney disease with stage 5 chronic kidney disease or end stage renal disease (principal); E11.22 Type 2 diabetes mellitus with diabetic chronic kidney disease; N18.6 End stage renal disease; R06.00 Dyspnea, unspecified; E78.00 Pure hypercholesterolemia, unspecified; E66.01 Morbid (severe) obesity due to excess calories; Z99.2 Dependence on renal dialysis; Z68.41 Body mass index [BMI] 40.0-44.9, adult
CPT/HCPCS: 36415; 71045; 80053; 82140; 83880; 84484; 85025; 85610; 86140; 94640

== ENCOUNTER 2022-07-30 18:29 | Inpatient (IN) | payer MEDICARE ==
[~2022-07-30] VITALS: Ht 177.8 cm; Wt 155.2 kg
[~2022-07-30 18:29] MED LIST changes: +ALBU8.5H8 IH; +CACL 1GM SYG IVP ONE; +EPINEPHRINE 1MG/10ML(1:10,000) 0.1 MG/ML SYG IVP ONE; +SODIUM BICARB 8.4% 50ML SYRINGE IVP ONE
[2022-07-30] MEDS ORDERED: 0.9%NACL 1000ML 1,000 ML IV SCH (19:00)
[2022-07-30] MEDS ORDERED: CEFEPIME HCL 2 GM VIAL IVP SCH (19:00)
[2022-07-30] MEDS ORDERED: PROPOFOL 1000 MG/100 ML 100 ML IV SCH (19:00)
[2022-07-30] MEDS ORDERED: ONDANSETRON 4MG INJ IV PRN (19:00)
[2022-07-30] MEDS ORDERED: NOREPINEPHRIN 4MG/NS 250ML 250 ML IV ONE (19:02)
[2022-07-30 19:14] LABS: BASOPHILS % (AUTO) 0.5 % (0.0-5.0); EOSINOPHILS % (AUTO) 0.9 % (0.0-8.0); HEMATOCRIT 33.2 % (42-54); LYMPHOCYTES % (AUTO) 20.3 % (21.0-51.0); MEAN CORPUSCULAR HEMOGLOBIN 32.2 pg (27.0-33.0); MEAN CORPUSCULAR HGB CONC 30.1 g/dL (32.0-36.0); MEAN CORPUSCULAR VOLUME 106.8 fL (79-99); MONOCYTES % (AUTO) 6.6 % (3.0-13.0); NEUTROPHILS % (AUTO) 70.9 % (40.0-77.0); PLATELET COUNT (AUTO) 108 K/uL (130-400); RED BLOOD CELL COUNT(AUTO) 3.11 MIL/uL (4.50-6.20); RED CELL DISTRIBUTION WIDTH 20.1 % (11.0-15.5); WHITE BLOOD COUNT (AUTO) 18.9 K/uL (4.8-10.8)
[2022-07-30 19:21] LABS: ABG BASE EXCESS -14.8 mmol/L (-2.0-3.0); ABG HCO3 15.3 mmol/L (21.0-28.0); ABG OXYGEN SATURATION 96.2 % (95.0-99.0); ABG PCO2 56 mmHg (35-48)
[2022-07-30 19:24] LABS: ABG BASE EXCESS -15.1 mmol/L (-2.0-3.0); ABG HCO3 14.5 mmol/L (21.0-28.0); ABG OXYGEN SATURATION 96.3 % (95.0-99.0); ABG PCO2 51 mmHg (35-48)
[2022-07-30 19:28] LABS: MAGNESIUM 2.2 mg/dL (1.80-2.40); PHOSPHORUS 3.4 mg/dL (2.5-4.9); THYROID STIMULATING HORMONE 4.48 uIU/mL (0.36-3.74)
[2022-07-30 19:37] LABS: B-TYPE NATRIURETIC PEPTIDE 1140 pg/mL (0-100)
[2022-07-30 19:43] LABS: INR 1.38 (0.85-1.15); PROTHROMBIN TIME 14.8 SEC (9.6-11.6)
[2022-07-30] MEDS ORDERED: PHENYLEPHRINE HCL 10 MG/ML 1ML VIAL IV ONE (19:43)
[2022-07-30] MEDS: PHENYLEPHRINE HCL 50 MG in 0.9% NACL 250ML 250 ML IV PRN (19:43)
[2022-07-30 19:44] LABS: PARTIAL THROMBOPLASTIN TIME 37.6 SEC (26.3-35.5)
[2022-07-30] MEDS ORDERED: VASOPRESSIN 20 UNITS/ML 1ML VIAL ONE (19:44)
[2022-07-30] MEDS: VASOPRESSIN 40 UNITS in 0.9%NACL 50ML 40 ML IV SCH (19:45)
[2022-07-30] MEDS: NOREPINEPHRIN 4MG/NS 250ML 250 ML IV SCH ×3 (19:59→23:51)
[2022-07-30] MEDS ORDERED: VANCOMYCIN PROTOCOL PER PHARMACY IV SCH (20:30)
[2022-07-30] MEDS: FENTANYL 2500MCG+NS 250ML IV.SOLN IV SCH ×2 (20:30→23:54)
[2022-07-30] MEDS ORDERED: SODIUM BICARB 50MEQ 50ML VIAL IV SCH (20:30)
[2022-07-30 20:35] LABS: CREATININE 6.3 mg/dL (0.5-1.5); POTASSIUM 3.1 mmol/L (3.5-5.1)
[2022-07-30 20:39] LABS: ALBUMIN 2.2 g/dL (3.5-5.0); TOTAL PROTEIN, SERUM 7.8 g/dL (6.0-8.3)
[2022-07-30] MEDS ORDERED: COMPOUND IV REFRIGERATED 1 EACH IVSOLN MISC PRN (21:00)
[2022-07-30] MEDS ORDERED: POTASSIUM CHLORIDE 20MEQ/100ML 100 ML IV PRN (21:00)
[2022-07-30] MEDS ORDERED: MIDAZOLAM 100MG-0.9% NS 100ML 100ML BAG IV SCH (21:00)
[2022-07-30] MEDS ORDERED: LIDOCAINE HCL-MPF 1% 2ML VIAL IV PRN (21:00)
[2022-07-30] MEDS ORDERED: DEXTROSE 50%-WATER 50 ML DISP.SYRIN IV ONE (21:26)
[2022-07-30] MEDS ORDERED: FUROSEMIDE 40MG VIAL ONE (21:42)
[2022-07-30] MEDS ORDERED: FUROSEMIDE 20MG VIAL ONE (21:42)
[2022-07-30] MEDS ORDERED: DEXTROSE 10%W 250ML 250 ML IV ONE (21:43)
[2022-07-30 21:58] LABS: ABG BASE EXCESS -7.4 mmol/L (-2.0-3.0); ABG HCO3 17.6 mmol/L (21.0-28.0); ABG OXYGEN SATURATION 99.2 % (95.0-99.0); ABG PCO2 34 mmHg (35-48)
[2022-07-30] MEDS ORDERED: DEXTROSE 50%-WATER 50 ML DISP.SYRIN IV PRN (22:00)
[2022-07-30] MEDS: SODIUM CL 4MEQ/ML 30ML 154 MEQ in DEXTROSE 10%-WATER 961.5 ML IV SCH (22:00)
[2022-07-30] MEDS ORDERED: DEXTROSE 10%-WATER 250 ML IV.SOLN. IV SCH (22:00)
[2022-07-30] MEDS ORDERED: GLUCAGON 1MG KIT 1 MG ML IM PRN (22:00)
[2022-07-30] MEDS ORDERED: FUROSEMIDE 40MG VIAL IVP ONE (22:00)
[2022-07-30] MEDS: VANCOMYCIN 1.5 GM/250 ML BAG 250 ML IV SCH (22:11)
[2022-07-30] MEDS ORDERED: PHENYLEPHRINE HCL 10 MG/ML 5ML VIAL IV ONE (23:45)
[2022-07-30 23:46] VITALS: BP 124/58
[2022-07-31] VITALS (130 sets, daily range): BP systolic 51–166; BP diastolic 19–109
[2022-07-31] MEDS ORDERED: DEXAMETHASONE SOD PHOSPHATE 4 MG/ML 1ML VIAL IVP SCH (00:30)
[2022-07-31] MEDS: HEPARIN 5,000 UNIT VIAL SQ SCH ×2 (01:01→08:45)
[2022-07-31] MEDS: ZOSYN 3.375GM +NS 50ML IV SCH ×3 (01:06→23:17)
[2022-07-31] MEDS ORDERED: PHENYLEPHRINE HCL 10 MG/ML 5ML VIAL IV ONE ×2 (01:42→04:01)
[2022-07-31] MEDS: NOREPINEPHRIN 4MG/NS 250ML 250 ML IV SCH ×3 (01:55→08:37)
[2022-07-31 07:32] LABS: BASOPHILS % (AUTO) 0.3 % (0.0-5.0); HEMATOCRIT 34.6 % (42-54); LYMPHOCYTES % (AUTO) 1.9 % (21.0-51.0); MEAN CORPUSCULAR HEMOGLOBIN 31.7 pg (27.0-33.0); MEAN CORPUSCULAR HGB CONC 30.9 g/dL (32.0-36.0); MEAN CORPUSCULAR VOLUME 102.4 fL (79-99); MONOCYTES % (AUTO) 2.3 % (3.0-13.0); NEUTROPHILS % (AUTO) 94.7 % (40.0-77.0); NUCLEATED RED BLOOD CELLS 0.1 % (0.0-0.19); PLATELET COUNT (AUTO) 92 K/uL (130-400); RED BLOOD CELL COUNT(AUTO) 3.38 MIL/uL (4.50-6.20); RED CELL DISTRIBUTION WIDTH 20.3 % (11.0-15.5); WHITE BLOOD COUNT (AUTO) 20.9 K/uL (4.8-10.8)
[2022-07-31 07:42] LABS: MAGNESIUM 1.8 mg/dL (1.80-2.40); PHOSPHORUS 4.1 mg/dL (2.5-4.9); POTASSIUM 3.9 mmol/L (3.5-5.1)
[2022-07-31] MEDS: FAMOTIDINE 20MG TAB PO SCH (08:44)
[2022-07-31] MEDS: HYDROCORTISONE SOD SUCCINATE 100 MG/2 ML VIAL IV SCH ×3 (08:44→20:08)
[2022-07-31] MEDS ORDERED: FAMOTIDINE 20MG TAB PO ONE (09:00)
[2022-07-31] MEDS ORDERED: PHARMACY COMMUNICATION MISC SCH (09:30)
[2022-07-31] MEDS: NOREPINEPHRINE BITARTRATE 32 MG in 0.9% NACL 250ML 250 ML IV SCH ×3 (10:10→22:38)
[2022-07-31] MEDS ORDERED: GENTAMICIN 80 MG/NS 100 ML PB 100 ML IV SCH (12:30)
[2022-07-31] MEDS ORDERED: GLUCAGON 1MG KIT 1 MG ML IM PRN (12:30)
[2022-07-31] MEDS ORDERED: GENTAMICIN SULFATE/PF 10 MG/1 ML 2ML IV ONE (12:30)
[2022-07-31] MEDS: INSULIN HUMULIN R 100 UNIT/ML 3ML SQ SCH (16:24)
[2022-07-31] MEDS ORDERED: ACETAMINOPHEN 650 MG/20.3 ML UDCUP ONE (16:37)
[2022-07-31] MEDS: DEXTROSE 50%-WATER 50 ML DISP.SYRIN IV PRN (17:08)
[2022-07-31] MEDS ORDERED: ADENOSINE 6MG VIAL IV ONE (17:15)
[2022-07-31 17:25] LABS: ABG BASE EXCESS -11.4 mmol/L (-2.0-3.0); ABG HCO3 16.2 mmol/L (21.0-28.0); ABG OXYGEN SATURATION 92.4 % (95.0-99.0); ABG PCO2 43 mmHg (35-48)
[2022-07-31] MEDS ORDERED: SODIUM BICARB 50MEQ 50ML VIAL 50 ML ONE (17:28)
[2022-07-31] MEDS ORDERED: DILTIAZEM 50MG VIAL IV ONE (17:45)
[2022-07-31] MEDS ORDERED: DILTIAZEM 25MG INJ IVP ONE (18:30)
[2022-07-31] MEDS ORDERED: AMIODARONE 900MG VIAL 360 MG in DEXTROSE 5%-WATER 200 ML IV SCH (18:30)
[2022-07-31] MEDS ORDERED: AMIODARONE 900MG VIAL 150 MG in DEXTROSE 5%-WATER 100 ML IV SCH (18:30)
[2022-07-31] MEDS ORDERED: ALBUMIN (HUMAN) 5% 250 ML IV ONE (19:50)
[2022-07-31] MEDS: FENTANYL 2500MCG+NS 250ML IV.SOLN IV SCH (19:53)
[2022-07-31 19:55] LABS: CREATININE 6.6 mg/dL (0.5-1.5)
[2022-07-31] MEDS ORDERED: ALBUMIN (HUMAN) 5% 250 ML IV SCH (20:00)
[2022-07-31] MEDS ORDERED: DILTIAZEM 25MG INJ IVP SCH (20:00)
[2022-07-31] MEDS: SODIUM CL 4MEQ/ML 30ML 154 MEQ in DEXTROSE 10%-WATER 961.5 ML IV SCH (20:09)
[2022-07-31] MEDS: PHENYLEPHRINE HCL 50 MG in 0.9% NACL 250ML 250 ML IV PRN ×2 (20:16→22:38)
[2022-07-31] MEDS: ACETAMINOPHEN 650 MG/20.3 ML UDCUP PEG PRN (20:23)
[2022-07-31 21:09] LABS: ABG BASE EXCESS -8.3 mmol/L (-2.0-3.0); ABG HCO3 16.8 mmol/L (21.0-28.0); ABG OXYGEN SATURATION 96.5 % (95.0-99.0); ABG PCO2 34 mmHg (35-48)
[2022-08-01] VITALS (109 sets, daily range): BP systolic 57–181; BP diastolic 22–106
[2022-08-01] MEDS: AMIODARONE 900MG VIAL 540 MG in DEXTROSE 5%-WATER 300 ML IV SCH ×2 (00:04→19:07)
[2022-08-01] MEDS: DEXTROSE 50%-WATER 50 ML DISP.SYRIN IV PRN ×2 (00:11→11:32)
[2022-08-01] MEDS: PHENYLEPHRINE HCL 50 MG in 0.9% NACL 250ML 250 ML IV PRN ×6 (01:46→22:05)
[2022-08-01] MEDS ORDERED: DEXMEDETOMIDINE 400MCG/NS100ML IV ONE (02:28)
[2022-08-01 03:51] LABS: BASOPHILS % (AUTO) 0.3 % (0.0-5.0); EOSINOPHILS % (AUTO) 0.6 % (0.0-8.0); HEMATOCRIT 32.9 % (42-54); LYMPHOCYTES % (AUTO) 2.8 % (21.0-51.0); MEAN CORPUSCULAR HEMOGLOBIN 31.9 pg (27.0-33.0); MEAN CORPUSCULAR VOLUME 102.8 fL (79-99); NEUTROPHILS % (AUTO) 90.3 % (40.0-77.0); NUCLEATED RED BLOOD CELLS 0.3 % (0.0-0.19); PLATELET COUNT (AUTO) 115 K/uL (130-400); RED CELL DISTRIBUTION WIDTH 20.8 % (11.0-15.5)
[2022-08-01 03:58] LABS: WHITE BLOOD COUNT (AUTO) 32.5 K/uL (4.8-10.8)
[2022-08-01 04:12] LABS: CREATININE 6.8 mg/dL (0.5-1.5); MAGNESIUM 1.8 mg/dL (1.80-2.40); PHOSPHORUS 5.8 mg/dL (2.5-4.9); POTASSIUM 4.8 mmol/L (3.5-5.1)
[2022-08-01 04:17] LABS: BAND NEUTROPHILS % (MANUAL) 14 % (0-2); LYMPHOCYTES % (MANUAL) 6 % (22-44); MAN.DIFF COMMENT-IMPRESSION MANUAL DIFFERENTIAL; MONOCYTES % (MANUAL) 5 % (2-9); PLATELET MORPHOLOGY COMMENT ADEQUATE; SEGMENTED NEUTROPHILS % 75 % (40-70)
[2022-08-01] MEDS: LEVOTHYROXINE 25 MCG TABLET PO SCH (04:39)
[2022-08-01] MEDS: INSULIN HUMULIN R 100 UNIT/ML 3ML SQ SCH ×4 (04:39→18:00)
[2022-08-01] MEDS: DEXMEDETOMIDINE 400MCG/NS100ML IV SCH ×5 (05:29→22:39)
[2022-08-01] MEDS: FENTANYL 2500MCG+NS 250ML IV.SOLN IV SCH ×2 (05:29→17:39)
[2022-08-01] MEDS: HYDROCORTISONE SOD SUCCINATE 100 MG/2 ML VIAL IV SCH ×4 (08:04→20:39)
[2022-08-01] MEDS: FAMOTIDINE 20MG TAB PO SCH (08:04)
[2022-08-01] MEDS: MAGNESIUM 2GM PREMIX 50ML 50 ML IV PRN (08:32)
[2022-08-01] MEDS: NOREPINEPHRINE BITARTRATE 32 MG in 0.9% NACL 250ML 250 ML IV SCH ×3 (08:47→21:01)
[2022-08-01] MEDS ORDERED: LACTULOSE 20 GM/30 ML UDCUP PO SCH (09:00)
[2022-08-01 10:54] LABS: INR 1.99 (0.85-1.15); PROTHROMBIN TIME 20.9 SEC (9.6-11.6)
[2022-08-01] MEDS: ZOSYN 3.375GM +NS 50ML IV SCH (11:32)
[2022-08-01] MEDS: VASOPRESSIN 40 UNITS in 0.9%NACL 50ML 40 ML IV SCH (12:37)
[2022-08-01] MEDS ORDERED: DEXTROSE 10%-WATER 1,000 ML IV SCH (15:00)
[2022-08-01] MEDS ORDERED: DESMOPRESSIN 40MCG INJ 24 MCG in 0.9%NACL 50ML 50 ML IJ SCH ×2 (15:00→18:00)
[2022-08-01] MEDS: BALSAM PERU/CASTOR OIL 60 GM TUBE TP SCH (17:44)
[2022-08-01] MEDS ORDERED: ARTIFICAL TEARS SOL 15 ML OU PRN (18:00)
[2022-08-01] MEDS: MEROPENEM 500 MG VIAL IVP SCH (18:44)
[2022-08-01] MEDS: CHLORHEXIDINE GLUCONATE 473 ML MOUTHWASH MM SCH ×2 (19:00→22:03)
[2022-08-01] MEDS: VANCOMYCIN 1.5 GM/250 ML BAG 250 ML IV SCH (20:39)
[2022-08-02] VITALS (93 sets, daily range): BP systolic 66–133; BP diastolic 22–96
[2022-08-02] MEDS: INSULIN HUMULIN R 100 UNIT/ML 3ML SQ SCH ×5 (00:12→22:20)
[2022-08-02 01:16] LABS: HEPATITIS B SURFACE ANTIGEN Non-Reactive (Nonreactive)
[2022-08-02] MEDS: DEXMEDETOMIDINE 400MCG/NS100ML IV SCH ×6 (02:32→22:20)
[2022-08-02 03:56] LABS: MEAN CORPUSCULAR HEMOGLOBIN 31.9 pg (27.0-33.0); MEAN CORPUSCULAR HGB CONC 31.5 g/dL (32.0-36.0); MEAN CORPUSCULAR VOLUME 101.2 fL (79-99); NUCLEATED RED BLOOD CELLS 0.2 % (0.0-0.19); RED BLOOD CELL COUNT(AUTO) 2.57 MIL/uL (4.50-6.20); RED CELL DISTRIBUTION WIDTH 20.8 % (11.0-15.5); WHITE BLOOD COUNT (AUTO) 20.5 K/uL (4.8-10.8)
[2022-08-02 04:07] LABS: CREATININE 5.6 mg/dL (0.5-1.5); MAGNESIUM 1.8 mg/dL (1.80-2.40); PHOSPHORUS 5.2 mg/dL (2.5-4.9); POTASSIUM 4.3 mmol/L (3.5-5.1)
[2022-08-02] MEDS: MAGNESIUM 2GM PREMIX 50ML 50 ML IV PRN (05:23)
[2022-08-02] MEDS: MEROPENEM 500 MG VIAL IVP SCH ×2 (05:23→17:38)
[2022-08-02] MEDS: LEVOTHYROXINE 25 MCG TABLET PO SCH (05:23)
[2022-08-02] MEDS: FENTANYL 2500MCG+NS 250ML IV.SOLN IV SCH ×2 (05:28→22:20)
[2022-08-02] MEDS: CHLORHEXIDINE GLUCONATE 473 ML MOUTHWASH MM SCH ×5 (05:56→23:11)
[2022-08-02] MEDS: BALSAM PERU/CASTOR OIL 60 GM TUBE TP SCH ×2 (05:56→20:29)
[2022-08-02] MEDS: FAMOTIDINE 20MG TAB PO SCH (08:49)
[2022-08-02] MEDS: HYDROCORTISONE SOD SUCCINATE 100 MG/2 ML VIAL IV SCH ×4 (08:49→20:28)
[2022-08-02] MEDS: LACTULOSE 20 GM/30 ML UDCUP PO SCH (08:49)
[2022-08-02] MEDS ORDERED: AMIODARONE 900MG VIAL 540 MG in DEXTROSE 5%-WATER 300 ML IV PRN (11:30)
[2022-08-02 11:46] LABS: ABG BASE EXCESS -3.3 mmol/L (-2.0-3.0); ABG HCO3 20.3 mmol/L (21.0-28.0); ABG OXYGEN SATURATION 89.8 % (95.0-99.0); ABG PCO2 32 mmHg (35-48)
[2022-08-02] MEDS ORDERED: BISACODYL 10 MG SUPP.RECT RC PRN (12:00)
[2022-08-02] MEDS ORDERED: BISACODYL 10 MG SUPP.RECT RC SCH (12:00)
[2022-08-02] MEDS: NOREPINEPHRINE BITARTRATE 32 MG in 0.9% NACL 250ML 250 ML IV SCH (17:43)
[2022-08-02] MEDS ORDERED: INSULIN GLARGINE 100 UNITS/ML 10 ML VIAL SQ ONE (22:00)
[2022-08-03] VITALS (75 sets, daily range): BP systolic 55–180; BP diastolic 22–106
[2022-08-03 04:16] LABS: BASOPHILS % (AUTO) 0.1 % (0.0-5.0); HEMATOCRIT 28.9 % (42-54); LYMPHOCYTES % (AUTO) 2.2 % (21.0-51.0); MEAN CORPUSCULAR HGB CONC 32.2 g/dL (32.0-36.0); MEAN CORPUSCULAR VOLUME 99.3 fL (79-99); MONOCYTES % (AUTO) 4.6 % (3.0-13.0); NEUTROPHILS % (AUTO) 92.1 % (40.0-77.0); NUCLEATED RED BLOOD CELLS 0.2 % (0.0-0.19); PLATELET COUNT (AUTO) 46 K/uL (130-400); RED BLOOD CELL COUNT(AUTO) 2.91 MIL/uL (4.50-6.20); RED CELL DISTRIBUTION WIDTH 20.3 % (11.0-15.5)
[2022-08-03 04:27] LABS: CREATININE 6.2 mg/dL (0.5-1.5); MAGNESIUM 2.3 mg/dL (1.80-2.40); PHOSPHORUS 4.5 mg/dL (2.5-4.9); POTASSIUM 4.5 mmol/L (3.5-5.1)
[2022-08-03] MEDS: CHLORHEXIDINE GLUCONATE 473 ML MOUTHWASH MM SCH ×5 (05:10→23:19)
[2022-08-03] MEDS: LEVOTHYROXINE 25 MCG TABLET PO SCH (05:10)
[2022-08-03] MEDS: MEROPENEM 500 MG VIAL IVP SCH ×2 (05:10→17:07)
[2022-08-03] MEDS: INSULIN GLARGINE 100 UNITS/ML 10 ML VIAL SQ SCH ×2 (05:54→21:20)
[2022-08-03] MEDS: INSULIN HUMULIN R 100 UNIT/ML 3ML SQ SCH ×4 (05:54→23:35)
[2022-08-03] MEDS: DEXMEDETOMIDINE 400MCG/NS100ML IV SCH ×5 (06:56→21:46)
[2022-08-03] MEDS: LACTULOSE 20 GM/30 ML UDCUP PO SCH (08:37)
[2022-08-03] MEDS: ACETAMINOPHEN 650 MG/20.3 ML UDCUP PEG PRN (08:37)
[2022-08-03] MEDS: BALSAM PERU/CASTOR OIL 60 GM TUBE TP SCH ×2 (08:38→21:06)
[2022-08-03] MEDS: HYDROCORTISONE SOD SUCCINATE 100 MG/2 ML VIAL IV SCH ×4 (08:38→21:05)
[2022-08-03] MEDS: FAMOTIDINE 20MG TAB PO SCH (08:40)
[2022-08-03] MEDS ORDERED: AMIODARONE 150MG VIAL 150 MG in DEXTROSE 5%-WATER 100 ML IV SCH (09:30)
[2022-08-03] MEDS ORDERED: DIGOXIN 250 MCG/ML 2ML AMP IV SCH (09:30)
[2022-08-03 09:44] LABS: ABG BASE EXCESS -5.8 mmol/L (-2.0-3.0); ABG HCO3 18.6 mmol/L (21.0-28.0); ABG PCO2 33 mmHg (35-48)
[2022-08-03] MEDS ORDERED: ALBUMIN (HUMAN) 25% 100 ML IV ONE ×2 (11:16→11:30)
[2022-08-03] MEDS: PHENYLEPHRINE HCL 50 MG in 0.9% NACL 250ML 250 ML IV PRN ×2 (11:42→17:57)
[2022-08-03] MEDS: NOREPINEPHRINE BITARTRATE 32 MG in 0.9% NACL 250ML 250 ML IV SCH (13:40)
[2022-08-03 15:01] LABS: INR 1.72 (0.85-1.15); PROTHROMBIN TIME 18.2 SEC (9.6-11.6)
[2022-08-03 15:02] LABS: PARTIAL THROMBOPLASTIN TIME 40.2 SEC (26.3-35.5)
[2022-08-03] MEDS ORDERED: LIDOCAINE HCL-MPF 2% 10ML AMP IJ ONE (15:10)
[2022-08-03] MEDS: FENTANYL 2500MCG+NS 250ML IV.SOLN IV SCH (17:54)
[2022-08-03] MEDS: VANCOMYCIN 1.5 GM/250 ML BAG 250 ML IV SCH (21:06)
[2022-08-04] VITALS (61 sets, daily range): BP systolic 92–134; BP diastolic 35–97
[2022-08-04] MEDS: DEXMEDETOMIDINE 400MCG/NS100ML IV SCH ×9 (00:33→23:48)
[2022-08-04 04:33] LABS: BASOPHILS % (AUTO) 0.1 % (0.0-5.0); HEMATOCRIT 26.8 % (42-54); LYMPHOCYTES % (AUTO) 3.1 % (21.0-51.0); MEAN CORPUSCULAR HEMOGLOBIN 31.4 pg (27.0-33.0); MEAN CORPUSCULAR HGB CONC 33.2 g/dL (32.0-36.0); MEAN CORPUSCULAR VOLUME 94.7 fL (79-99); MONOCYTES % (AUTO) 4.4 % (3.0-13.0); NEUTROPHILS % (AUTO) 91.3 % (40.0-77.0); NUCLEATED RED BLOOD CELLS 0.2 % (0.0-0.19); PLATELET COUNT (AUTO) 33 K/uL (130-400); RED BLOOD CELL COUNT(AUTO) 2.83 MIL/uL (4.50-6.20); RED CELL DISTRIBUTION WIDTH 19.8 % (11.0-15.5); WHITE BLOOD COUNT (AUTO) 12.6 K/uL (4.8-10.8)
[2022-08-04 04:44] LABS: CREATININE 5.5 mg/dL (0.5-1.5); MAGNESIUM 2.3 mg/dL (1.80-2.40); PHOSPHORUS 4.2 mg/dL (2.5-4.9); POTASSIUM 4.4 mmol/L (3.5-5.1)
[2022-08-04] MEDS: LEVOTHYROXINE 25 MCG TABLET PO SCH (05:59)
[2022-08-04] MEDS: MEROPENEM 500 MG VIAL IVP SCH ×2 (05:59→17:00)
[2022-08-04] MEDS: INSULIN HUMULIN R 100 UNIT/ML 3ML SQ SCH ×3 (06:01→17:03)
[2022-08-04] MEDS: INSULIN GLARGINE 100 UNITS/ML 10 ML VIAL SQ SCH ×2 (06:02→20:49)
[2022-08-04] MEDS: CHLORHEXIDINE GLUCONATE 473 ML MOUTHWASH MM SCH ×5 (06:04→20:44)
[2022-08-04] MEDS: FENTANYL 2500MCG+NS 250ML IV.SOLN IV SCH (07:59)
[2022-08-04] MEDS: FAMOTIDINE 20MG TAB PO SCH (07:59)
[2022-08-04] MEDS: LACTULOSE 20 GM/30 ML UDCUP PO SCH (07:59)
[2022-08-04] MEDS: BALSAM PERU/CASTOR OIL 60 GM TUBE TP SCH ×2 (08:00→20:48)
[2022-08-04] MEDS: HYDROCORTISONE SOD SUCCINATE 100 MG/2 ML VIAL IV SCH ×4 (08:01→20:44)
[2022-08-04] MEDS: PHENYLEPHRINE HCL 50 MG in 0.9% NACL 250ML 250 ML IV PRN (12:14)
[2022-08-05] VITALS (79 sets, daily range): BP systolic 58–140; BP diastolic 25–116
[2022-08-05] MEDS: INSULIN HUMULIN R 100 UNIT/ML 3ML SQ SCH ×4 (00:08→17:46)
[2022-08-05] MEDS: DEXMEDETOMIDINE 400MCG/NS100ML IV SCH ×8 (02:19→23:16)
[2022-08-05 04:24] LABS: INR 1.51 (0.85-1.15); PROTHROMBIN TIME 16.1 SEC (9.6-11.6)
[2022-08-05 04:29] LABS: ALBUMIN 1.5 g/dL (3.5-5.0); CREATININE 6.3 mg/dL (0.5-1.5); MAGNESIUM 2.3 mg/dL (1.80-2.40); PHOSPHORUS 5.2 mg/dL (2.5-4.9); POTASSIUM 4.5 mmol/L (3.5-5.1); TOTAL PROTEIN, SERUM 5.9 g/dL (6.0-8.3)
[2022-08-05] MEDS ORDERED: FENTANYL 2500MCG+NS 250ML 250 ML IV ONE (04:37)
[2022-08-05] MEDS: PHENYLEPHRINE HCL 50 MG in 0.9% NACL 250ML 250 ML IV PRN ×2 (05:09→20:09)
[2022-08-05] MEDS: LEVOTHYROXINE 25 MCG TABLET PO SCH (05:41)
[2022-08-05] MEDS: MEROPENEM 500 MG VIAL IVP SCH ×2 (05:41→17:27)
[2022-08-05] MEDS: INSULIN GLARGINE 100 UNITS/ML 10 ML VIAL SQ SCH ×2 (05:45→20:55)
[2022-08-05] MEDS: CHLORHEXIDINE GLUCONATE 473 ML MOUTHWASH MM SCH ×4 (05:56→20:57)
[2022-08-05] MEDS: LACTULOSE 20 GM/30 ML UDCUP PO SCH (08:01)
[2022-08-05] MEDS: FAMOTIDINE 20MG TAB PO SCH (08:01)
[2022-08-05] MEDS: HYDROCORTISONE SOD SUCCINATE 100 MG/2 ML VIAL IV SCH ×4 (08:01→20:53)
[2022-08-05] MEDS: BALSAM PERU/CASTOR OIL 60 GM TUBE TP SCH ×2 (08:05→20:59)
[2022-08-05] MEDS: VANCOMYCIN 1.5 GM/250 ML BAG 250 ML IV SCH (20:54)
[2022-08-06] VITALS (113 sets, daily range): BP systolic 49–148; BP diastolic 21–83
[2022-08-06] MEDS: INSULIN HUMULIN R 100 UNIT/ML 3ML SQ SCH ×4 (00:39→18:33)
[2022-08-06] MEDS: CHLORHEXIDINE GLUCONATE 473 ML MOUTHWASH MM SCH ×6 (00:39→22:03)
[2022-08-06] MEDS: DEXMEDETOMIDINE 400MCG/NS100ML IV SCH ×4 (01:24→19:20)
[2022-08-06] MEDS ORDERED: FENTANYL 2500MCG+NS 250ML 250 ML IV ONE ×2 (01:30→21:58)
[2022-08-06 04:42] LABS: BASOPHILS % (AUTO) 0.1 % (0.0-5.0); MEAN CORPUSCULAR HGB CONC 33.2 g/dL (32.0-36.0); MEAN CORPUSCULAR VOLUME 96.2 fL (79-99); NEUTROPHILS % (AUTO) 88.6 % (40.0-77.0); NUCLEATED RED BLOOD CELLS 0.3 % (0.0-0.19); PLATELET COUNT (AUTO) 53 K/uL (130-400); RED BLOOD CELL COUNT(AUTO) 2.91 MIL/uL (4.50-6.20); RED CELL DISTRIBUTION WIDTH 21.2 % (11.0-15.5); WHITE BLOOD COUNT (AUTO) 10.2 K/uL (4.8-10.8)
[2022-08-06 04:56] LABS: ALBUMIN 1.3 g/dL (3.5-5.0); MAGNESIUM 2.4 mg/dL (1.80-2.40); PHOSPHORUS 6.5 mg/dL (2.5-4.9); POTASSIUM 5.1 mmol/L (3.5-5.1); TOTAL PROTEIN, SERUM 5.8 g/dL (6.0-8.3)
[2022-08-06] MEDS: LEVOTHYROXINE 25 MCG TABLET PO SCH (06:54)
[2022-08-06] MEDS: MEROPENEM 500 MG VIAL IVP SCH ×2 (06:55→16:33)
[2022-08-06] MEDS: INSULIN GLARGINE 100 UNITS/ML 10 ML VIAL SQ SCH ×2 (06:55→22:01)
[2022-08-06] MEDS: HYDROCORTISONE SOD SUCCINATE 100 MG/2 ML VIAL IV SCH ×4 (08:50→22:00)
[2022-08-06] MEDS: FAMOTIDINE 20MG TAB PO SCH (08:50)
[2022-08-06] MEDS: LACTULOSE 20 GM/30 ML UDCUP PO SCH (08:50)
[2022-08-06] MEDS: PHENYLEPHRINE HCL 50 MG in 0.9% NACL 250ML 250 ML IV PRN ×3 (08:52→20:04)
[2022-08-06] MEDS: BALSAM PERU/CASTOR OIL 60 GM TUBE TP SCH ×2 (08:54→22:02)
[2022-08-06 10:49] LABS: FIBRINOGEN 363 mg/dL (180-350)
[2022-08-06 10:50] LABS: INR 1.67 (0.85-1.15); PROTHROMBIN TIME 17.7 SEC (9.6-11.6)
[2022-08-06 11:23] LABS: D-DIMER > 10000 ng/mL (0-500)
[2022-08-06] MEDS ORDERED: METOCLOPRAMIDE 10 MG/2 ML VIAL ONE (15:32)
[2022-08-06] MEDS: POLYETHYLENE GLYCOL 3350 17 GM POWD.PACK PO SCH (15:36)
[2022-08-06] MEDS: METOCLOPRAMIDE 10 MG/2 ML VIAL IVP SCH (16:33)
[2022-08-06] MEDS: VASOPRESSIN 40 UNITS in 0.9%NACL 50ML 40 ML IV SCH (20:01)
[2022-08-06] MEDS: HEPARIN 5,000 UNIT VIAL IJ SCH (21:59)
[2022-08-06] MEDS ORDERED: FENTANYL 2500MCG+NS 250ML IV.SOLN IV SCH (22:00)
[2022-08-07] VITALS (104 sets, daily range): BP systolic 58–180; BP diastolic 21–150
[2022-08-07] MEDS: INSULIN HUMULIN R 100 UNIT/ML 3ML SQ SCH ×5 (00:24→23:32)
[2022-08-07] MEDS: DEXMEDETOMIDINE 400MCG/NS100ML IV SCH ×3 (01:06→10:19)
[2022-08-07] MEDS: PHENYLEPHRINE HCL 50 MG in 0.9% NACL 250ML 250 ML IV PRN ×4 (01:09→11:42)
[2022-08-07] MEDS: MEROPENEM 500 MG VIAL IVP SCH ×2 (06:44→17:45)
[2022-08-07] MEDS: LEVOTHYROXINE 25 MCG TABLET PO SCH (06:45)
[2022-08-07] MEDS: METOCLOPRAMIDE 10 MG/2 ML VIAL IVP SCH ×3 (06:45→21:37)
[2022-08-07] MEDS: INSULIN GLARGINE 100 UNITS/ML 10 ML VIAL SQ SCH ×2 (06:46→21:36)
[2022-08-07] MEDS: CHLORHEXIDINE GLUCONATE 473 ML MOUTHWASH MM SCH ×5 (06:47→22:21)
[2022-08-07] MEDS: HYDROCORTISONE SOD SUCCINATE 100 MG/2 ML VIAL IV SCH ×5 (08:47→23:32)
[2022-08-07] MEDS: LACTULOSE 20 GM/30 ML UDCUP PO SCH (08:47)
[2022-08-07] MEDS: FAMOTIDINE 20MG TAB PO SCH (08:47)
[2022-08-07] MEDS: POLYETHYLENE GLYCOL 3350 17 GM POWD.PACK PO SCH (08:47)
[2022-08-07] MEDS: BALSAM PERU/CASTOR OIL 60 GM TUBE TP SCH ×2 (10:20→21:10)
[2022-08-07] MEDS: MIDODRINE HCL 5 MG TABLET NG SCH ×2 (13:15→21:37)
[2022-08-07] MEDS: HEPARIN 5,000 UNIT VIAL IJ SCH (15:00)
[2022-08-07] MEDS: PHENYLEPHRINE 100 MG/NS 250ML IV SCH ×4 (15:14→22:20)
[2022-08-07] MEDS: VANCOMYCIN 1.5 GM/250 ML BAG 250 ML IV SCH (21:10)
[2022-08-07] MEDS ORDERED: ALTEPLASE 2MG VIAL 2 MG/VIAL VIAL IVCATH ONE (21:30)
[2022-08-08] VITALS (104 sets, daily range): BP systolic 54–179; BP diastolic 14–148
[2022-08-08 04:07] LABS: BASOPHILS % (AUTO) 0.2 % (0.0-5.0); LYMPHOCYTES % (AUTO) 1.3 % (21.0-51.0); MEAN CORPUSCULAR HEMOGLOBIN 31.8 pg (27.0-33.0); MEAN CORPUSCULAR VOLUME 96.5 fL (79-99); MONOCYTES % (AUTO) 5.4 % (3.0-13.0); NEUTROPHILS % (AUTO) 90.9 % (40.0-77.0); NUCLEATED RED BLOOD CELLS 0.2 % (0.0-0.19); PLATELET COUNT (AUTO) 131 K/uL (130-400); RED BLOOD CELL COUNT(AUTO) 3.11 MIL/uL (4.50-6.20); RED CELL DISTRIBUTION WIDTH 22.1 % (11.0-15.5)
[2022-08-08 04:37] LABS: ALBUMIN 1.2 g/dL (3.5-5.0); CREATININE 7.4 mg/dL (0.5-1.5); MAGNESIUM 2.4 mg/dL (1.80-2.40); PHOSPHORUS 8.4 mg/dL (2.5-4.9); POTASSIUM 4.6 mmol/L (3.5-5.1); TOTAL PROTEIN, SERUM 5.5 g/dL (6.0-8.3)
[2022-08-08] MEDS: INSULIN HUMULIN R 100 UNIT/ML 3ML SQ SCH ×3 (06:00→18:00)
[2022-08-08] MEDS: METOCLOPRAMIDE 10 MG/2 ML VIAL IVP SCH ×3 (06:00→21:29)
[2022-08-08] MEDS: LEVOTHYROXINE 25 MCG TABLET PO SCH (06:04)
[2022-08-08] MEDS: HYDROCORTISONE SOD SUCCINATE 100 MG/2 ML VIAL IV SCH ×2 (06:04→21:42)
[2022-08-08] MEDS: MEROPENEM 500 MG VIAL IVP SCH ×2 (06:04→18:55)
[2022-08-08] MEDS: MIDODRINE HCL 5 MG TABLET NG SCH ×3 (06:05→21:31)
[2022-08-08] MEDS: INSULIN GLARGINE 100 UNITS/ML 10 ML VIAL SQ SCH ×2 (06:05→21:00)
[2022-08-08] MEDS: CHLORHEXIDINE GLUCONATE 473 ML MOUTHWASH MM SCH (06:06)
[2022-08-08] MEDS: PHENYLEPHRINE 100 MG/NS 250ML IV SCH ×8 (06:08→21:45)
[2022-08-08 06:17] LABS: LYMPHOCYTES % (MANUAL) 3 % (22-44); MAN.DIFF COMMENT-IMPRESSION MANUAL DIFFERENTIAL; MONOCYTES % (MANUAL) 4 % (2-9); PLATELET MORPHOLOGY COMMENT ADEQUATE; SEGMENTED NEUTROPHILS % 93 % (40-70)
[2022-08-08] MEDS: POLYETHYLENE GLYCOL 3350 17 GM POWD.PACK PO SCH (07:46)
[2022-08-08] MEDS: LACTULOSE 20 GM/30 ML UDCUP PO SCH (07:46)
[2022-08-08] MEDS: FAMOTIDINE 20MG TAB PO SCH (08:53)
[2022-08-08] MEDS: BALSAM PERU/CASTOR OIL 60 GM TUBE TP SCH ×2 (09:00→21:37)
[2022-08-08] MEDS ORDERED: PANTOPRAZOLE 40 MG/VIAL IVP SCH (10:30)
[2022-08-08] MEDS ORDERED: OCTREOTIDE ACETATE 1,250 MCG in 0.9% NACL 250ML 250 ML IV SCH (12:30)
[2022-08-08 14:10] LABS: HEMATOCRIT 29.2 % (42-54); MEAN CORPUSCULAR HGB CONC 32.9 g/dL (32.0-36.0); MEAN CORPUSCULAR VOLUME 97.3 fL (79-99); NUCLEATED RED BLOOD CELLS 0.1 % (0.0-0.19); RED CELL DISTRIBUTION WIDTH 22.6 % (11.0-15.5)
[2022-08-08 14:15] LABS: WHITE BLOOD COUNT (AUTO) 42.1 K/uL (4.8-10.8)
[2022-08-08] MEDS: HEPARIN 5,000 UNIT VIAL IJ SCH (15:00)
[2022-08-08] MEDS: DEXMEDETOMIDINE 400MCG/NS100ML IV SCH ×2 (15:12→17:53)
[2022-08-08] MEDS: FENTANYL 2500MCG+NS 250ML IV.SOLN IV SCH ×2 (15:14→21:44)
[2022-08-08] MEDS ORDERED: FENTANYL CITRATE PF 50 MCG/1 ML 2ML VIAL ONE (15:16)
[2022-08-08] MEDS ORDERED: FENTANYL CITRATE PF 50 MCG/1 ML 2ML VIAL IVP ONE (15:30)
[2022-08-08] MEDS ORDERED: 0.9%NACL 1000ML 1,000 ML IV ONE (15:30)
[2022-08-08] MEDS ORDERED: PHARMACY COMMUNICATION MISC SCH ×2 (16:00→20:00)
[2022-08-08] MEDS ORDERED: DESMOPRESSIN 40MCG INJ 20 MCG in 0.9%NACL 50ML 50 ML IJ ONE (16:00)
[2022-08-08] MEDS ORDERED: ALBUMIN (HUMAN) 25% 100 ML IV ONE ×2 (16:36→18:00)
[2022-08-08] MEDS ORDERED: ALBUMIN (HUMAN) 5% 250 ML IV STA ×2 (16:40→18:28)
[2022-08-08] MEDS ORDERED: ALBUMIN (HUMAN) 5% 250 ML IV ONE (16:42)
[2022-08-08 16:57] LABS: ABG BASE EXCESS -11.4 mmol/L (-2.0-3.0); ABG HCO3 14.3 mmol/L (21.0-28.0); ABG OXYGEN SATURATION 91.8 % (95.0-99.0); ABG PCO2 32 mmHg (35-48)
[2022-08-08] MEDS ORDERED: SODIUM BICARB 50MEQ 50ML VIAL 100 ML ONE (17:04)
[2022-08-08] MEDS: NOREPINEPHRINE BITARTRATE 32 MG in 0.9% NACL 250ML 250 ML IV SCH ×2 (17:11→21:46)
[2022-08-08] MEDS ORDERED: SODIUM BICARB 50MEQ 50ML VIAL IV ONE (17:17)
[2022-08-08] MEDS: DEXTROSE 50%-WATER 50 ML DISP.SYRIN IV PRN (17:52)
[2022-08-08 20:41] LABS: INR 2.08 (0.85-1.15); PROTHROMBIN TIME 21.8 SEC (9.6-11.6)
[2022-08-08] MEDS: AMIKACIN IV SCH (21:00)
[2022-08-08] MEDS: [UNRECOGNIZED DRUG - OTHER] IV SCH (21:00)
[2022-08-08] MEDS: PANTOPRAZOLE 40 MG/VIAL IVP SCH (21:29)
[2022-08-08] MEDS: EPOETIN ALFA-EPBX (NON-ESRD) 10,000 UNIT/ML VIAL SQ SCH (21:30)
[2022-08-08] MEDS: FLUCONAZOLE 400 MG/NS 200 ML 200 ML IV SCH (21:43)
[2022-08-09] VITALS (89 sets, daily range): BP systolic 78–198; BP diastolic 22–155
[2022-08-09 01:31] LABS: INR 2.06 (0.85-1.15); PROTHROMBIN TIME 21.6 SEC (9.6-11.6)
[2022-08-09 01:32] LABS: PARTIAL THROMBOPLASTIN TIME 41.6 SEC (26.3-35.5)
[2022-08-09] MEDS: HYDROCORTISONE SOD SUCCINATE 100 MG/2 ML VIAL IV SCH ×4 (02:00→20:00)
[2022-08-09] MEDS: NOREPINEPHRINE BITARTRATE 32 MG in 0.9% NACL 250ML 250 ML IV SCH (04:13)
[2022-08-09] MEDS: PHENYLEPHRINE 100 MG/NS 250ML IV SCH ×6 (04:15→14:52)
[2022-08-09 04:40] LABS: ABG BASE EXCESS -6.8 mmol/L (-2.0-3.0); ABG HCO3 15.8 mmol/L (21.0-28.0); ABG OXYGEN SATURATION 95.7 % (95.0-99.0); ABG PCO2 24 mmHg (35-48)
[2022-08-09 04:52] LABS: BASOPHILS % (AUTO) 0.2 % (0.0-5.0); LYMPHOCYTES % (AUTO) 1.1 % (21.0-51.0); MEAN CORPUSCULAR HEMOGLOBIN 32.4 pg (27.0-33.0); MEAN CORPUSCULAR HGB CONC 34.5 g/dL (32.0-36.0); MEAN CORPUSCULAR VOLUME 93.9 fL (79-99); MONOCYTES % (AUTO) 4.9 % (3.0-13.0); NEUTROPHILS % (AUTO) 91.3 % (40.0-77.0); PLATELET COUNT (AUTO) 118 K/uL (130-400); RED BLOOD CELL COUNT(AUTO) 3.09 MIL/uL (4.50-6.20); RED CELL DISTRIBUTION WIDTH 22.4 % (11.0-15.5)
[2022-08-09 04:58] LABS: WHITE BLOOD COUNT (AUTO) 49.9 K/uL (4.8-10.8)
[2022-08-09 05:01] LABS: ALBUMIN 2.2 g/dL (3.5-5.0); CREATININE 6.7 mg/dL (0.5-1.5); POTASSIUM 4.9 mmol/L (3.5-5.1); TOTAL PROTEIN, SERUM 6.1 g/dL (6.0-8.3)
[2022-08-09] MEDS: MIDODRINE HCL 5 MG TABLET NG SCH ×4 (05:13→22:21)
[2022-08-09] MEDS: LEVOTHYROXINE 25 MCG TABLET PO SCH (05:13)
[2022-08-09] MEDS: METOCLOPRAMIDE 10 MG/2 ML VIAL IVP SCH ×3 (05:22→22:21)
[2022-08-09] MEDS: INSULIN HUMULIN R 100 UNIT/ML 3ML SQ SCH ×4 (05:23→17:19)
[2022-08-09] MEDS: MEROPENEM 500 MG VIAL IVP SCH ×2 (05:23→18:14)
[2022-08-09 05:34] LABS: BAND NEUTROPHILS % (MANUAL) 5 % (0-2); LYMPHOCYTES % (MANUAL) 1 % (22-44); MAN.DIFF COMMENT-IMPRESSION MANUAL DIFFERENTIAL; MONOCYTES % (MANUAL) 6 % (2-9); SEGMENTED NEUTROPHILS % 88 % (40-70)
[2022-08-09] MEDS: INSULIN GLARGINE 100 UNITS/ML 10 ML VIAL SQ SCH ×2 (07:30→21:00)
[2022-08-09 08:20] LABS: INR 2.01 (0.85-1.15); PROTHROMBIN TIME 21.1 SEC (9.6-11.6)
[2022-08-09 08:21] LABS: PARTIAL THROMBOPLASTIN TIME 45.7 SEC (26.3-35.5)
[2022-08-09] MEDS: POLYETHYLENE GLYCOL 3350 17 GM POWD.PACK PO SCH (09:00)
[2022-08-09] MEDS ORDERED: FLUCONAZOLE 400 MG/NS 200 ML 200 ML IV SCH (09:00)
[2022-08-09] MEDS ORDERED: PANTOPRAZOLE 40 MG/VIAL IVP SCH (09:00)
[2022-08-09] MEDS: LACTULOSE 20 GM/30 ML UDCUP PO SCH (09:00)
[2022-08-09] MEDS: PANTOPRAZOLE 40 MG/VIAL IVP SCH ×2 (09:24→22:20)
[2022-08-09] MEDS: FENTANYL 2500MCG+NS 250ML IV.SOLN IV SCH ×2 (09:59→23:16)
[2022-08-09] MEDS: BALSAM PERU/CASTOR OIL 60 GM TUBE TP SCH ×2 (10:00→22:21)
[2022-08-09 14:40] LABS: INR 1.93 (0.85-1.15); PROTHROMBIN TIME 20.3 SEC (9.6-11.6)
[2022-08-09 14:41] LABS: PARTIAL THROMBOPLASTIN TIME 45.3 SEC (26.3-35.5)
[2022-08-09] MEDS: VASOPRESSIN 40 UNITS in 0.9%NACL 50ML 40 ML IV SCH (14:49)
[2022-08-09 20:16] LABS: INR 1.9 (0.85-1.15)
[2022-08-09 20:17] LABS: PARTIAL THROMBOPLASTIN TIME 45.9 SEC (26.3-35.5)
[2022-08-09] MEDS: VANCOMYCIN 1.5 GM/250 ML BAG 250 ML IV SCH (22:20)
[2022-08-09] MEDS: FLUCONAZOLE 400 MG/NS 200 ML 200 ML IV SCH (23:15)
[2022-08-10] VITALS (87 sets, daily range): BP systolic 53–175; BP diastolic 15–110
[2022-08-10 02:45] LABS: BASOPHILS % (AUTO) 0.2 % (0.0-5.0); HEMATOCRIT 26.2 % (42-54); MEAN CORPUSCULAR HEMOGLOBIN 32.1 pg (27.0-33.0); MEAN CORPUSCULAR HGB CONC 33.6 g/dL (32.0-36.0); MEAN CORPUSCULAR VOLUME 95.6 fL (79-99); MONOCYTES % (AUTO) 4.9 % (3.0-13.0); NUCLEATED RED BLOOD CELLS 0.1 % (0.0-0.19); PLATELET COUNT (AUTO) 116 K/uL (130-400); RED BLOOD CELL COUNT(AUTO) 2.74 MIL/uL (4.50-6.20); RED CELL DISTRIBUTION WIDTH 22.4 % (11.0-15.5)
[2022-08-10] MEDS: HYDROCORTISONE SOD SUCCINATE 100 MG/2 ML VIAL IV SCH ×4 (02:47→20:39)
[2022-08-10 03:07] LABS: ALBUMIN 1.8 g/dL (3.5-5.0); CREATININE 7.1 mg/dL (0.5-1.5); INR 1.84 (0.85-1.15); MAGNESIUM 2.2 mg/dL (1.80-2.40); PHOSPHORUS 8.5 mg/dL (2.5-4.9); POTASSIUM 5.4 mmol/L (3.5-5.1); PROTHROMBIN TIME 19.4 SEC (9.6-11.6); TOTAL PROTEIN, SERUM 5.8 g/dL (6.0-8.3)
[2022-08-10 03:09] LABS: PARTIAL THROMBOPLASTIN TIME 44.7 SEC (26.3-35.5)
[2022-08-10 03:18] LABS: WHITE BLOOD COUNT (AUTO) 43.7 K/uL (4.8-10.8)
[2022-08-10] MEDS: INSULIN HUMULIN R 100 UNIT/ML 3ML SQ SCH ×5 (06:00→20:16)
[2022-08-10 06:33] LABS: ABG BASE EXCESS -9.6 mmol/L (-2.0-3.0); ABG HCO3 14.7 mmol/L (21.0-28.0); ABG OXYGEN SATURATION 99.4 % (95.0-99.0); ABG PCO2 29 mmHg (35-48)
[2022-08-10] MEDS: INSULIN GLARGINE 100 UNITS/ML 10 ML VIAL SQ SCH ×2 (07:30→20:16)
[2022-08-10] MEDS: LEVOTHYROXINE 25 MCG TABLET PO SCH (07:34)
[2022-08-10] MEDS: MEROPENEM 500 MG VIAL IVP SCH ×2 (07:34→17:57)
[2022-08-10] MEDS: MIDODRINE HCL 5 MG TABLET NG SCH ×3 (07:34→20:40)
[2022-08-10] MEDS: METOCLOPRAMIDE 10 MG/2 ML VIAL IVP SCH ×3 (07:34→20:40)
[2022-08-10] MEDS: POLYETHYLENE GLYCOL 3350 17 GM POWD.PACK PO SCH (09:00)
[2022-08-10] MEDS: LACTULOSE 20 GM/30 ML UDCUP PO SCH (09:00)
[2022-08-10] MEDS: BALSAM PERU/CASTOR OIL 60 GM TUBE TP SCH ×2 (09:00→20:40)
[2022-08-10] MEDS: PANTOPRAZOLE 40 MG/VIAL IVP SCH ×2 (09:00→20:40)
[2022-08-10] MEDS: PHENYLEPHRINE 100 MG/NS 250ML IV SCH ×6 (10:52→22:45)
[2022-08-10] MEDS: FENTANYL 2500MCG+NS 250ML IV.SOLN IV SCH (12:50)
[2022-08-10] MEDS: ALBUMIN (HUMAN) 25% 200 ML IV PRN (14:18)
[2022-08-10] MEDS: HEPARIN 5,000 UNIT VIAL IJ SCH ×2 (14:23→15:00)
[2022-08-10] MEDS: EPOETIN ALFA-EPBX (NON-ESRD) 10,000 UNIT/ML VIAL SQ SCH (16:05)
[2022-08-10] MEDS: FLUCONAZOLE 400 MG/NS 200 ML 200 ML IV SCH (20:40)
[2022-08-11] VITALS (117 sets, daily range): BP systolic 73–146; BP diastolic 19–119
[2022-08-11] MEDS: FENTANYL 2500MCG+NS 250ML IV.SOLN IV SCH ×3 (01:15→22:38)
[2022-08-11] MEDS: HYDROCORTISONE SOD SUCCINATE 100 MG/2 ML VIAL IV SCH ×4 (01:15→21:00)
[2022-08-11 03:56] LABS: BASOPHILS % (AUTO) 0.2 % (0.0-5.0); EOSINOPHILS % (AUTO) 0.2 % (0.0-8.0); HEMATOCRIT 25.2 % (42-54); LYMPHOCYTES % (AUTO) 0.9 % (21.0-51.0); MEAN CORPUSCULAR HEMOGLOBIN 32.3 pg (27.0-33.0); MEAN CORPUSCULAR HGB CONC 32.9 g/dL (32.0-36.0); MEAN CORPUSCULAR VOLUME 98.1 fL (79-99); MONOCYTES % (AUTO) 4.6 % (3.0-13.0); NEUTROPHILS % (AUTO) 92.1 % (40.0-77.0); NUCLEATED RED BLOOD CELLS 0.1 % (0.0-0.19); PLATELET COUNT (AUTO) 117 K/uL (130-400); RED BLOOD CELL COUNT(AUTO) 2.57 MIL/uL (4.50-6.20); RED CELL DISTRIBUTION WIDTH 23.2 % (11.0-15.5)
[2022-08-11 04:10] LABS: WHITE BLOOD COUNT (AUTO) 37.1 K/uL (4.8-10.8)
[2022-08-11 04:15] LABS: CREATININE 6.4 mg/dL (0.5-1.5); POTASSIUM 5.7 mmol/L (3.5-5.1)
[2022-08-11 04:33] LABS: LYMPHOCYTES % (MANUAL) 4 % (22-44); MAN.DIFF COMMENT-IMPRESSION MANUAL DIFFERENTIAL; MONOCYTES % (MANUAL) 1 % (2-9); SEGMENTED NEUTROPHILS % 95 % (40-70)
[2022-08-11] MEDS: METOCLOPRAMIDE 10 MG/2 ML VIAL IVP SCH ×3 (05:45→21:20)
[2022-08-11] MEDS: MIDODRINE HCL 5 MG TABLET NG SCH ×3 (05:45→21:20)
[2022-08-11] MEDS: MEROPENEM 500 MG VIAL IVP SCH ×2 (05:45→17:08)
[2022-08-11] MEDS: LEVOTHYROXINE 25 MCG TABLET PO SCH (05:46)
[2022-08-11] MEDS: INSULIN HUMULIN R 100 UNIT/ML 3ML SQ SCH ×4 (05:46→23:56)
[2022-08-11 07:19] LABS: ABG BASE EXCESS -10.3 mmol/L (-2.0-3.0); ABG HCO3 14.6 mmol/L (21.0-28.0); ABG OXYGEN SATURATION 84.3 % (95.0-99.0); ABG PCO2 29 mmHg (35-48)
[2022-08-11] MEDS: INSULIN GLARGINE 100 UNITS/ML 10 ML VIAL SQ SCH ×2 (07:30→21:02)
[2022-08-11] MEDS: PHENYLEPHRINE 100 MG/NS 250ML IV SCH ×10 (07:44→23:59)
[2022-08-11] MEDS: BALSAM PERU/CASTOR OIL 60 GM TUBE TP SCH ×2 (08:07→21:01)
[2022-08-11] MEDS: POLYETHYLENE GLYCOL 3350 17 GM POWD.PACK PO SCH ×2 (08:28→08:53)
[2022-08-11] MEDS: LACTULOSE 20 GM/30 ML UDCUP PO SCH ×2 (08:28→08:53)
[2022-08-11] MEDS: PANTOPRAZOLE 40 MG/VIAL IVP SCH ×2 (08:28→21:00)
[2022-08-11] MEDS: VASOPRESSIN 40 UNITS in 0.9%NACL 50ML 40 ML IV SCH (10:35)
[2022-08-11] MEDS: HEPARIN 5,000 UNIT VIAL IJ SCH (14:09)
[2022-08-11] MEDS: ALBUTEROL 0.083% 2.5 MG/3 ML INH IH SCH ×3 (14:09→22:20)
[2022-08-11] MEDS: ACETYLCYSTEINE 10% 100MG/ML 4ML VIAL IH SCH ×3 (14:09→22:20)
[2022-08-11] MEDS: VANCOMYCIN 1.5 GM/250 ML BAG 250 ML IV SCH (21:00)
[2022-08-11] MEDS: FLUCONAZOLE 400 MG/NS 200 ML 200 ML IV SCH (21:20)
[2022-08-11] MEDS: AMIKACIN IV SCH (21:43)
[2022-08-11] MEDS: [UNRECOGNIZED DRUG - OTHER] IV SCH (21:43)
[2022-08-12] VITALS (118 sets, daily range): BP systolic 53–192; BP diastolic 26–126
[2022-08-12] MEDS: HYDROCORTISONE SOD SUCCINATE 100 MG/2 ML VIAL IV SCH ×4 (01:07→20:32)
[2022-08-12] MEDS: ACETYLCYSTEINE 10% 100MG/ML 4ML VIAL IH SCH ×7 (02:53→22:10)
[2022-08-12] MEDS: ALBUTEROL 0.083% 2.5 MG/3 ML INH IH SCH ×7 (02:53→22:10)
[2022-08-12 04:11] LABS: BASOPHILS % (AUTO) 0.1 % (0.0-5.0); HEMATOCRIT 23.6 % (42-54); LYMPHOCYTES % (AUTO) 0.8 % (21.0-51.0); MEAN CORPUSCULAR HEMOGLOBIN 32.4 pg (27.0-33.0); MEAN CORPUSCULAR HGB CONC 32.6 g/dL (32.0-36.0); MEAN CORPUSCULAR VOLUME 99.2 fL (79-99); NEUTROPHILS % (AUTO) 91.2 % (40.0-77.0); NUCLEATED RED BLOOD CELLS 0.3 % (0.0-0.19); PLATELET COUNT (AUTO) 103 K/uL (130-400); RED BLOOD CELL COUNT(AUTO) 2.38 MIL/uL (4.50-6.20); RED CELL DISTRIBUTION WIDTH 23.9 % (11.0-15.5); WHITE BLOOD COUNT (AUTO) 27.8 K/uL (4.8-10.8)
[2022-08-12] MEDS: PHENYLEPHRINE 100 MG/NS 250ML IV SCH ×8 (04:18→16:53)
[2022-08-12 04:42] LABS: ALBUMIN 1.8 g/dL (3.5-5.0); CREATININE 6.8 mg/dL (0.5-1.5); PHOSPHORUS 9.3 mg/dL (2.5-4.9); POTASSIUM 5.8 mmol/L (3.5-5.1)
[2022-08-12] MEDS: INSULIN HUMULIN R 100 UNIT/ML 3ML SQ SCH ×3 (05:31→18:00)
[2022-08-12] MEDS: METOCLOPRAMIDE 10 MG/2 ML VIAL IVP SCH ×3 (05:43→20:35)
[2022-08-12] MEDS: MEROPENEM 500 MG VIAL IVP SCH ×2 (05:43→18:14)
[2022-08-12] MEDS: LEVOTHYROXINE 25 MCG TABLET PO SCH (05:44)
[2022-08-12] MEDS: MIDODRINE HCL 5 MG TABLET NG SCH ×3 (05:44→20:35)
[2022-08-12] MEDS: INSULIN GLARGINE 100 UNITS/ML 10 ML VIAL SQ SCH ×2 (05:45→20:34)
[2022-08-12 07:27] LABS: ABG BASE EXCESS -10.4 mmol/L (-2.0-3.0); ABG HCO3 15.1 mmol/L (21.0-28.0); ABG OXYGEN SATURATION 94.9 % (95.0-99.0); ABG PCO2 33 mmHg (35-48)
[2022-08-12] MEDS: BALSAM PERU/CASTOR OIL 60 GM TUBE TP SCH ×2 (07:52→20:35)
[2022-08-12] MEDS: POLYETHYLENE GLYCOL 3350 17 GM POWD.PACK PO SCH (07:57)
[2022-08-12] MEDS: LACTULOSE 20 GM/30 ML UDCUP PO SCH (07:57)
[2022-08-12] MEDS: PANTOPRAZOLE 40 MG/VIAL IVP SCH ×2 (07:58→20:32)
[2022-08-12] MEDS ORDERED: SODIUM BICARB 50MEQ 50ML VIAL IV SCH (10:30)
[2022-08-12] MEDS: VASOPRESSIN 40 UNITS in 0.9%NACL 50ML 40 ML IV SCH (12:35)
[2022-08-12] MEDS: ALBUMIN (HUMAN) 25% 200 ML IV PRN (13:54)
[2022-08-12] MEDS: HEPARIN 5,000 UNIT VIAL IJ SCH (14:33)
[2022-08-12] MEDS ORDERED: DILTIAZEM 25MG INJ IVP SCH (15:00)
[2022-08-12] MEDS: EPOETIN ALFA-EPBX (NON-ESRD) 10,000 UNIT/ML VIAL SQ SCH (15:11)
[2022-08-12] MEDS: FENTANYL 2500MCG+NS 250ML IV.SOLN IV SCH (16:13)
[2022-08-12] MEDS: FLUCONAZOLE 400 MG/NS 200 ML 200 ML IV SCH (21:13)
[2022-08-12 21:59] LABS: HEMATOCRIT 20.7 % (42-54)
[2022-08-13] VITALS (94 sets, daily range): BP systolic 65–173; BP diastolic 22–117
[2022-08-13] MEDS: INSULIN HUMULIN R 100 UNIT/ML 3ML SQ SCH ×4 (00:04→17:36)
[2022-08-13] MEDS: HYDROCORTISONE SOD SUCCINATE 100 MG/2 ML VIAL IV SCH ×4 (02:10→20:58)
[2022-08-13] MEDS: ALBUTEROL 0.083% 2.5 MG/3 ML INH IH SCH ×6 (03:07→22:25)
[2022-08-13] MEDS: ACETYLCYSTEINE 10% 100MG/ML 4ML VIAL IH SCH ×6 (03:07→22:25)
[2022-08-13] MEDS: PHENYLEPHRINE 100 MG/NS 250ML IV SCH ×6 (04:37→23:02)
[2022-08-13] MEDS: FENTANYL 2500MCG+NS 250ML IV.SOLN IV SCH (04:39)
[2022-08-13] MEDS: MIDODRINE HCL 5 MG TABLET NG SCH ×3 (06:32→21:18)
[2022-08-13] MEDS: MEROPENEM 500 MG VIAL IVP SCH ×2 (06:32→17:35)
[2022-08-13] MEDS: LEVOTHYROXINE 25 MCG TABLET PO SCH (06:32)
[2022-08-13] MEDS: INSULIN GLARGINE 100 UNITS/ML 10 ML VIAL SQ SCH ×2 (06:33→21:11)
[2022-08-13] MEDS: METOCLOPRAMIDE 10 MG/2 ML VIAL IVP SCH ×3 (06:34→21:18)
[2022-08-13 07:08] LABS: BASOPHILS % (AUTO) 0.1 % (0.0-5.0); HEMATOCRIT 22.4 % (42-54); LYMPHOCYTES % (AUTO) 1.2 % (21.0-51.0); MEAN CORPUSCULAR HEMOGLOBIN 32.6 pg (27.0-33.0); MEAN CORPUSCULAR HGB CONC 33.5 g/dL (32.0-36.0); MEAN CORPUSCULAR VOLUME 97.4 fL (79-99); MONOCYTES % (AUTO) 5.7 % (3.0-13.0); NEUTROPHILS % (AUTO) 91.8 % (40.0-77.0); NUCLEATED RED BLOOD CELLS 0.3 % (0.0-0.19); PLATELET COUNT (AUTO) 60 K/uL (130-400); RED CELL DISTRIBUTION WIDTH 22.8 % (11.0-15.5); WHITE BLOOD COUNT (AUTO) 18.9 K/uL (4.8-10.8)
[2022-08-13 07:23] LABS: ALBUMIN 1.9 g/dL (3.5-5.0); CREATININE 5.9 mg/dL (0.5-1.5); MAGNESIUM 2.1 mg/dL (1.80-2.40); PHOSPHORUS 8.1 mg/dL (2.5-4.9); POTASSIUM 5.1 mmol/L (3.5-5.1); TOTAL PROTEIN, SERUM 5.8 g/dL (6.0-8.3)
[2022-08-13 09:28] LABS: ABG BASE EXCESS -5.5 mmol/L (-2.0-3.0); ABG HCO3 17.9 mmol/L (21.0-28.0); ABG OXYGEN SATURATION 97.4 % (95.0-99.0); ABG PCO2 30 mmHg (35-48)
[2022-08-13] MEDS: LACTULOSE 20 GM/30 ML UDCUP PO SCH (10:25)
[2022-08-13] MEDS: BALSAM PERU/CASTOR OIL 60 GM TUBE TP SCH ×2 (10:25→21:05)
[2022-08-13] MEDS: PANTOPRAZOLE 40 MG/VIAL IVP SCH ×2 (10:25→20:58)
[2022-08-13] MEDS: POLYETHYLENE GLYCOL 3350 17 GM POWD.PACK PO SCH (10:25)
[2022-08-13] MEDS: VASOPRESSIN 40 UNITS in 0.9%NACL 50ML 40 ML IV SCH (12:14)
[2022-08-13] MEDS: HEPARIN 5,000 UNIT VIAL IJ SCH (14:30)
[2022-08-13] MEDS: FENTANYL 2500MCG+NS 250ML 250 ML IV PRN (19:23)
[2022-08-13] MEDS: FLUCONAZOLE 400 MG/NS 200 ML 200 ML IV SCH (21:16)
[2022-08-14] VITALS (95 sets, daily range): BP systolic 67–176; BP diastolic 26–92
[2022-08-14] MEDS: INSULIN HUMULIN R 100 UNIT/ML 3ML SQ SCH ×4 (00:06→18:05)
[2022-08-14] MEDS: HYDROCORTISONE SOD SUCCINATE 100 MG/2 ML VIAL IV SCH ×4 (01:19→20:02)
[2022-08-14] MEDS: ACETYLCYSTEINE 10% 100MG/ML 4ML VIAL IH SCH ×6 (01:54→21:59)
[2022-08-14] MEDS: ALBUTEROL 0.083% 2.5 MG/3 ML INH IH SCH ×6 (01:55→21:59)
[2022-08-14 04:21] LABS: HEMATOCRIT 22.2 % (42-54); MEAN CORPUSCULAR HEMOGLOBIN 32.5 pg (27.0-33.0); MEAN CORPUSCULAR HGB CONC 33.3 g/dL (32.0-36.0); MEAN CORPUSCULAR VOLUME 97.4 fL (79-99); NUCLEATED RED BLOOD CELLS 0.4 % (0.0-0.19); PLATELET COUNT (AUTO) 40 K/uL (130-400); RED BLOOD CELL COUNT(AUTO) 2.28 MIL/uL (4.50-6.20); RED CELL DISTRIBUTION WIDTH 23.4 % (11.0-15.5); WHITE BLOOD COUNT (AUTO) 14.5 K/uL (4.8-10.8)
[2022-08-14 04:39] LABS: ALBUMIN 1.5 g/dL (3.5-5.0); CREATININE 6.3 mg/dL (0.5-1.5); MAGNESIUM 2.1 mg/dL (1.80-2.40); PHOSPHORUS 7.8 mg/dL (2.5-4.9); POTASSIUM 5.1 mmol/L (3.5-5.1); TOTAL PROTEIN, SERUM 5.5 g/dL (6.0-8.3)
[2022-08-14] MEDS: MEROPENEM 500 MG VIAL IVP SCH ×2 (05:43→18:01)
[2022-08-14] MEDS: METOCLOPRAMIDE 10 MG/2 ML VIAL IVP SCH ×3 (05:44→22:12)
[2022-08-14] MEDS: MIDODRINE HCL 5 MG TABLET NG SCH ×3 (05:44→22:14)
[2022-08-14] MEDS: LEVOTHYROXINE 25 MCG TABLET PO SCH (05:44)
[2022-08-14] MEDS: FENTANYL 2500MCG+NS 250ML 250 ML IV PRN ×2 (06:20→22:12)
[2022-08-14 07:17] LABS: ABG BASE EXCESS -3.8 mmol/L (-2.0-3.0); ABG HCO3 19.4 mmol/L (21.0-28.0); ABG OXYGEN SATURATION 95.9 % (95.0-99.0); ABG PCO2 30 mmHg (35-48)
[2022-08-14 08:37] LABS: BAND NEUTROPHILS % (MANUAL) 2 % (0-2); LYMPHOCYTES % (MANUAL) 6 % (22-44); MONOCYTES % (MANUAL) 3 % (2-9); SEGMENTED NEUTROPHILS % 89 % (40-70)
[2022-08-14 08:38] LABS: MAN.DIFF COMMENT-IMPRESSION MANUAL DIFFERENTIAL; PLATELET MORPHOLOGY COMMENT MARKED DECREASE
[2022-08-14] MEDS: INSULIN GLARGINE 100 UNITS/ML 10 ML VIAL SQ SCH ×2 (08:52→20:05)
[2022-08-14] MEDS: PANTOPRAZOLE 40 MG/VIAL IVP SCH ×2 (08:54→20:02)
[2022-08-14] MEDS: BALSAM PERU/CASTOR OIL 60 GM TUBE TP SCH ×2 (08:54→20:03)
[2022-08-14] MEDS: POLYETHYLENE GLYCOL 3350 17 GM POWD.PACK PO SCH (08:54)
[2022-08-14] MEDS: LACTULOSE 20 GM/30 ML UDCUP PO SCH (08:54)
[2022-08-14] MEDS: HEPARIN 5,000 UNIT VIAL IJ SCH (13:22)
[2022-08-14] MEDS: FLUCONAZOLE 400 MG/NS 200 ML 200 ML IV SCH (22:13)
[2022-08-15] VITALS (88 sets, daily range): BP systolic 61–158; BP diastolic 23–113
[2022-08-15] MEDS: ACETYLCYSTEINE 10% 100MG/ML 4ML VIAL IH SCH ×6 (02:34→22:56)
[2022-08-15] MEDS: ALBUTEROL 0.083% 2.5 MG/3 ML INH IH SCH ×6 (02:34→22:56)
[2022-08-15] MEDS: HYDROCORTISONE SOD SUCCINATE 100 MG/2 ML VIAL IV SCH ×4 (02:58→20:33)
[2022-08-15 04:26] LABS: HEMATOCRIT 22.4 % (42-54); MEAN CORPUSCULAR HEMOGLOBIN 32.3 pg (27.0-33.0); MEAN CORPUSCULAR VOLUME 97.8 fL (79-99); NUCLEATED RED BLOOD CELLS 0.4 % (0.0-0.19); PLATELET COUNT (AUTO) 19 K/uL (130-400); RED BLOOD CELL COUNT(AUTO) 2.29 MIL/uL (4.50-6.20); RED CELL DISTRIBUTION WIDTH 24.2 % (11.0-15.5); WHITE BLOOD COUNT (AUTO) 13.9 K/uL (4.8-10.8)
[2022-08-15 04:44] LABS: ALBUMIN 1.3 g/dL (3.5-5.0); CREATININE 6.6 mg/dL (0.5-1.5); PHOSPHORUS 8.1 mg/dL (2.5-4.9); POTASSIUM 4.9 mmol/L (3.5-5.1); TOTAL PROTEIN, SERUM 5.2 g/dL (6.0-8.3)
[2022-08-15 05:01] LABS: BAND NEUTROPHILS % (MANUAL) 2 % (0-2); LYMPHOCYTES % (MANUAL) 4 % (22-44); MAN.DIFF COMMENT-IMPRESSION MANUAL DIFFERENTIAL; MONOCYTES % (MANUAL) 2 % (2-9); SEGMENTED NEUTROPHILS % 92 % (40-70)
[2022-08-15 05:02] LABS: PLATELET MORPHOLOGY COMMENT DECREASED
[2022-08-15] MEDS: MIDODRINE HCL 5 MG TABLET NG SCH ×3 (06:52→20:59)
[2022-08-15] MEDS: MEROPENEM 500 MG VIAL IVP SCH (06:52)
[2022-08-15] MEDS: METOCLOPRAMIDE 10 MG/2 ML VIAL IVP SCH ×3 (06:53→20:59)
[2022-08-15] MEDS: INSULIN HUMULIN R 100 UNIT/ML 3ML SQ SCH ×4 (06:54→17:27)
[2022-08-15] MEDS: LEVOTHYROXINE 25 MCG TABLET PO SCH (06:58)
[2022-08-15] MEDS: PANTOPRAZOLE 40 MG/VIAL IVP SCH ×2 (07:47→20:33)
[2022-08-15] MEDS: INSULIN GLARGINE 100 UNITS/ML 10 ML VIAL SQ SCH ×2 (07:50→20:37)
[2022-08-15] MEDS: POLYETHYLENE GLYCOL 3350 17 GM POWD.PACK PO SCH (07:51)
[2022-08-15] MEDS: LACTULOSE 20 GM/30 ML UDCUP PO SCH (07:51)
[2022-08-15] MEDS: BALSAM PERU/CASTOR OIL 60 GM TUBE TP SCH ×2 (09:06→20:36)
[2022-08-15] MEDS: ALBUMIN (HUMAN) 25% 100 ML IV PRN (10:24)
[2022-08-15] MEDS: PHENYLEPHRINE 100 MG/NS 250ML IV SCH ×2 (12:19)
[2022-08-15] MEDS: FENTANYL 2500MCG+NS 250ML 250 ML IV PRN (12:20)
[2022-08-15] MEDS: EPOETIN ALFA-EPBX (NON-ESRD) 10,000 UNIT/ML VIAL SQ SCH (13:28)
[2022-08-15] MEDS: HEPARIN 5,000 UNIT VIAL IJ SCH (15:00)
[2022-08-15] MEDS ORDERED: NYSTATIN 15 GM POWDER TP ONE (18:07)
[2022-08-15] MEDS: NYSTATIN 15 GM POWDER TP SCH (20:36)
[2022-08-15] MEDS: FLUCONAZOLE 400 MG/NS 200 ML 200 ML IV SCH (20:59)
[2022-08-16] VITALS (75 sets, daily range): BP systolic 74–165; BP diastolic 28–110
[2022-08-16] MEDS: ALBUTEROL 0.083% 2.5 MG/3 ML INH IH SCH ×4 (02:10→18:59)
[2022-08-16] MEDS: ACETYLCYSTEINE 10% 100MG/ML 4ML VIAL IH SCH ×2 (02:10→07:00)
[2022-08-16] MEDS: HYDROCORTISONE SOD SUCCINATE 100 MG/2 ML VIAL IV SCH ×4 (02:55→18:33)
[2022-08-16 04:38] LABS: BASOPHILS % (AUTO) 0.1 % (0.0-5.0); HEMATOCRIT 25.5 % (42-54); LYMPHOCYTES % (AUTO) 1.4 % (21.0-51.0); MEAN CORPUSCULAR HEMOGLOBIN 33.1 pg (27.0-33.0); MEAN CORPUSCULAR HGB CONC 32.9 g/dL (32.0-36.0); MEAN CORPUSCULAR VOLUME 100.4 fL (79-99); MONOCYTES % (AUTO) 5.7 % (3.0-13.0); NEUTROPHILS % (AUTO) 91.6 % (40.0-77.0); NUCLEATED RED BLOOD CELLS 0.2 % (0.0-0.19); PLATELET COUNT (AUTO) 17 K/uL (130-400); RED BLOOD CELL COUNT(AUTO) 2.54 MIL/uL (4.50-6.20); RED CELL DISTRIBUTION WIDTH 24.7 % (11.0-15.5); WHITE BLOOD COUNT (AUTO) 14.2 K/uL (4.8-10.8)
[2022-08-16 04:59] LABS: ALBUMIN 1.7 g/dL (3.5-5.0); CREATININE 5.8 mg/dL (0.5-1.5); POTASSIUM 4.4 mmol/L (3.5-5.1); TOTAL PROTEIN, SERUM 5.6 g/dL (6.0-8.3)
[2022-08-16] MEDS: INSULIN HUMULIN R 100 UNIT/ML 3ML SQ SCH ×4 (06:00→18:00)
[2022-08-16] MEDS: METOCLOPRAMIDE 10 MG/2 ML VIAL IVP SCH ×3 (06:21→21:55)
[2022-08-16] MEDS: LEVOTHYROXINE 25 MCG TABLET PO SCH (06:21)
[2022-08-16] MEDS: MIDODRINE HCL 5 MG TABLET NG SCH ×3 (06:21→21:55)
[2022-08-16] MEDS: INSULIN GLARGINE 100 UNITS/ML 10 ML VIAL SQ SCH ×2 (06:23→21:00)
[2022-08-16 07:50] LABS: ABG BASE EXCESS -4.6 mmol/L (-2.0-3.0); ABG HCO3 18.5 mmol/L (21.0-28.0); ABG OXYGEN SATURATION 94.7 % (95.0-99.0); ABG PCO2 29 mmHg (35-48)
[2022-08-16] MEDS: PANTOPRAZOLE 40 MG/VIAL IVP SCH ×2 (08:41→21:55)
[2022-08-16] MEDS: LACTULOSE 20 GM/30 ML UDCUP PO SCH (08:41)
[2022-08-16] MEDS: POLYETHYLENE GLYCOL 3350 17 GM POWD.PACK PO SCH (08:41)
[2022-08-16] MEDS: NYSTATIN 15 GM POWDER TP SCH ×3 (08:42→21:56)
[2022-08-16] MEDS: BALSAM PERU/CASTOR OIL 60 GM TUBE TP SCH ×2 (08:42→21:56)
[2022-08-16] MEDS: HEPARIN 5,000 UNIT VIAL IJ SCH (15:00)
[2022-08-16] MEDS: DEXTROSE 50%-WATER 50 ML DISP.SYRIN IV PRN (18:33)
[2022-08-16] MEDS: FLUCONAZOLE 400 MG/NS 200 ML 200 ML IV SCH (21:55)
[2022-08-17] VITALS (79 sets, daily range): BP systolic 66–156; BP diastolic 30–107
[2022-08-17] MEDS: HYDROCORTISONE SOD SUCCINATE 100 MG/2 ML VIAL IV SCH ×4 (02:21→21:03)
[2022-08-17 04:19] LABS: HEMATOCRIT 23.9 % (42-54); MEAN CORPUSCULAR HEMOGLOBIN 32.9 pg (27.0-33.0); MEAN CORPUSCULAR HGB CONC 33.1 g/dL (32.0-36.0); MEAN CORPUSCULAR VOLUME 99.6 fL (79-99); NUCLEATED RED BLOOD CELLS 0.2 % (0.0-0.19); PLATELET COUNT (AUTO) 14 K/uL (130-400); RED CELL DISTRIBUTION WIDTH 25.3 % (11.0-15.5); WHITE BLOOD COUNT (AUTO) 18.2 K/uL (4.8-10.8)
[2022-08-17 04:35] LABS: ALBUMIN 1.4 g/dL (3.5-5.0); CREATININE 6.3 mg/dL (0.5-1.5); PHOSPHORUS 8.3 mg/dL (2.5-4.9); POTASSIUM 4.8 mmol/L (3.5-5.1)
[2022-08-17 05:22] LABS: BASOPHILS % (MANUAL) 1 % (0-2); LYMPHOCYTES % (MANUAL) 2 % (22-44); MAN.DIFF COMMENT-IMPRESSION MANUAL DIFFERENTIAL; SEGMENTED NEUTROPHILS % 97 % (40-70)
[2022-08-17 05:23] LABS: PLATELET MORPHOLOGY COMMENT MARKED DECREASE
[2022-08-17] MEDS: INSULIN HUMULIN R 100 UNIT/ML 3ML SQ SCH ×4 (06:00→18:00)
[2022-08-17] MEDS: METOCLOPRAMIDE 10 MG/2 ML VIAL IVP SCH ×3 (06:29→21:04)
[2022-08-17] MEDS: LEVOTHYROXINE 25 MCG TABLET PO SCH (06:29)
[2022-08-17] MEDS: MIDODRINE HCL 5 MG TABLET NG SCH ×3 (06:29→21:05)
[2022-08-17] MEDS: INSULIN GLARGINE 100 UNITS/ML 10 ML VIAL SQ SCH ×2 (06:29→21:00)
[2022-08-17] MEDS: ALBUTEROL 0.083% 2.5 MG/3 ML INH IH SCH ×4 (06:30→23:59)
[2022-08-17] MEDS: ALBUMIN (HUMAN) 25% 100 ML IV PRN (09:22)
[2022-08-17] MEDS: LACTULOSE 20 GM/30 ML UDCUP PO SCH (12:17)
[2022-08-17] MEDS: POLYETHYLENE GLYCOL 3350 17 GM POWD.PACK PO SCH (12:18)
[2022-08-17] MEDS: PANTOPRAZOLE 40 MG/VIAL IVP SCH ×2 (12:18→21:04)
[2022-08-17] MEDS: EPOETIN ALFA-EPBX (NON-ESRD) 10,000 UNIT/ML VIAL SQ SCH (12:19)
[2022-08-17] MEDS ORDERED: VANCOMYCIN 1G/250ML KIT 250 ML IV SCH (12:30)
[2022-08-17] MEDS ORDERED: VANCOMYCIN PROTOCOL PER PHARMACY IV SCH (12:30)
[2022-08-17] MEDS ORDERED: VANCOMYCIN 2GM/500 ML BAG 500 ML IV ONE (13:00)
[2022-08-17] MEDS: CEFEPIME HCL 1 GM VIAL IVP SCH (13:36)
[2022-08-17] MEDS: BALSAM PERU/CASTOR OIL 60 GM TUBE TP SCH ×2 (13:57→21:05)
[2022-08-17] MEDS: NYSTATIN 15 GM POWDER TP SCH ×3 (13:59→21:05)
[2022-08-17] MEDS: HEPARIN 5,000 UNIT VIAL IJ SCH (15:00)
[2022-08-17] MEDS: DEXTROSE 50%-WATER 50 ML DISP.SYRIN IV PRN (18:05)
[2022-08-17] MEDS: FLUCONAZOLE 400 MG/NS 200 ML 200 ML IV SCH (21:05)
[2022-08-18] VITALS (73 sets, daily range): BP systolic 51–130; BP diastolic 17–80
[2022-08-18] MEDS: CEFEPIME HCL 1 GM VIAL IVP SCH ×2 (01:08→13:01)
[2022-08-18] MEDS: HYDROCORTISONE SOD SUCCINATE 100 MG/2 ML VIAL IV SCH ×4 (02:16→19:52)
[2022-08-18] MEDS: INSULIN HUMULIN R 100 UNIT/ML 3ML SQ SCH ×4 (06:00→17:47)
[2022-08-18] MEDS: METOCLOPRAMIDE 10 MG/2 ML VIAL IVP SCH ×3 (06:23→20:51)
[2022-08-18] MEDS: MIDODRINE HCL 5 MG TABLET NG SCH ×3 (06:23→19:51)
[2022-08-18] MEDS: INSULIN GLARGINE 100 UNITS/ML 10 ML VIAL SQ SCH ×2 (06:23→19:52)
[2022-08-18] MEDS: LEVOTHYROXINE 25 MCG TABLET PO SCH (06:23)
[2022-08-18] MEDS: ALBUTEROL 0.083% 2.5 MG/3 ML INH IH SCH ×3 (06:52→19:21)
[2022-08-18 07:06] LABS: HEMATOCRIT 23.6 % (42-54); MEAN CORPUSCULAR HEMOGLOBIN 33.5 pg (27.0-33.0); MEAN CORPUSCULAR HGB CONC 33.1 g/dL (32.0-36.0); MEAN CORPUSCULAR VOLUME 101.3 fL (79-99); NUCLEATED RED BLOOD CELLS 0.2 % (0.0-0.19); PLATELET COUNT (AUTO) 15 K/uL (130-400); RED BLOOD CELL COUNT(AUTO) 2.33 MIL/uL (4.50-6.20); RED CELL DISTRIBUTION WIDTH 26.2 % (11.0-15.5); WHITE BLOOD COUNT (AUTO) 23.2 K/uL (4.8-10.8)
[2022-08-18 07:13] LABS: CREATININE 5.7 mg/dL (0.5-1.5); POTASSIUM 4.6 mmol/L (3.5-5.1)
[2022-08-18] MEDS: POLYETHYLENE GLYCOL 3350 17 GM POWD.PACK PO SCH (09:42)
[2022-08-18] MEDS: LACTULOSE 20 GM/30 ML UDCUP PO SCH (09:42)
[2022-08-18] MEDS: PANTOPRAZOLE 40 MG/VIAL IVP SCH ×2 (09:42→19:51)
[2022-08-18] MEDS: BALSAM PERU/CASTOR OIL 60 GM TUBE TP SCH ×2 (09:43→19:53)
[2022-08-18] MEDS: NYSTATIN 15 GM POWDER TP SCH ×3 (09:43→19:53)
[2022-08-18 12:02] LABS: ABG BASE EXCESS -5.8 mmol/L (-2.0-3.0); ABG HCO3 19.2 mmol/L (21.0-28.0); ABG OXYGEN SATURATION 90.7 % (95.0-99.0); ABG PCO2 36 mmHg (35-48)
[2022-08-18] MEDS: FLUCONAZOLE 400 MG/NS 200 ML 200 ML IV SCH (20:45)
[2022-08-18] MEDS ORDERED: ALBUMIN (HUMAN) 25% 50 ML IV SCH (21:00)
[2022-08-18 21:38] LABS: ABG BASE EXCESS -12.9 mmol/L (-2.0-3.0); ABG HCO3 18.6 mmol/L (21.0-28.0); ABG OXYGEN SATURATION 95.2 % (95.0-99.0); ABG PCO2 78 mmHg (35-48)
[2022-08-18] MEDS ORDERED: SODIUM BICARB 50MEQ 50ML VIAL 100 ML ONE (21:43)
[2022-08-18] MEDS ORDERED: SODIUM BICARB 50MEQ 50ML VIAL IV STA ×2 (21:58)
[2022-08-18] MEDS: VASOPRESSIN 40 UNITS in 0.9%NACL 50ML 40 ML IV SCH (22:19)
[2022-08-18] MEDS: HEPARIN 5,000 UNIT VIAL IJ SCH (22:29)
[2022-08-19] VITALS (34 sets, daily range): BP systolic 45–113; BP diastolic 24–58
[2022-08-19] MEDS: ALBUMIN (HUMAN) 25% 100 ML IV PRN ×2 (01:26→05:34)
[2022-08-19] MEDS: CEFEPIME HCL 1 GM VIAL IVP SCH (01:26)
[2022-08-19] MEDS: HYDROCORTISONE SOD SUCCINATE 100 MG/2 ML VIAL IV SCH (01:26)
[2022-08-19] MEDS ORDERED: ALBUMIN (HUMAN) 25% 50 ML IV SCH (01:30)
[2022-08-19] MEDS ORDERED: SODIUM BICARB 8.4% 50ML SYRINGE IVP SCH ×4 (01:30→05:00)
[2022-08-19] MEDS: PHENYLEPHRINE 100 MG/NS 250ML IV SCH ×4 (02:30→08:15)
[2022-08-19 03:59] LABS: INR 1.92 (0.85-1.15); PROTHROMBIN TIME 20.2 SEC (9.6-11.6)
[2022-08-19 04:00] LABS: MAGNESIUM 2.3 mg/dL (1.80-2.40); PARTIAL THROMBOPLASTIN TIME 59.5 SEC (26.3-35.5); POTASSIUM 5.4 mmol/L (3.5-5.1)
[2022-08-19 04:02] LABS: BASOPHILS % (AUTO) 0.1 % (0.0-5.0); HEMATOCRIT 26.2 % (42-54); LYMPHOCYTES % (AUTO) 0.3 % (21.0-51.0); MEAN CORPUSCULAR HGB CONC 30.9 g/dL (32.0-36.0); MEAN CORPUSCULAR VOLUME 110.1 fL (79-99); MONOCYTES % (AUTO) 4.8 % (3.0-13.0); NEUTROPHILS % (AUTO) 92.9 % (40.0-77.0); NUCLEATED RED BLOOD CELLS 0.3 % (0.0-0.19); PLATELET COUNT (AUTO) 37 K/uL (130-400); RED BLOOD CELL COUNT(AUTO) 2.38 MIL/uL (4.50-6.20); RED CELL DISTRIBUTION WIDTH 25.7 % (11.0-15.5); WHITE BLOOD COUNT (AUTO) 29.5 K/uL (4.8-10.8)
[2022-08-19 04:31] LABS: ABG BASE EXCESS -16.6 mmol/L (-2.0-3.0); ABG HCO3 18.1 mmol/L (21.0-28.0); ABG PCO2 92 mmHg (35-48)
[2022-08-19] MEDS: DEXTROSE 50%-WATER 50 ML DISP.SYRIN IV PRN (05:33)
[2022-08-19] MEDS ORDERED: SODIUM BICARB 50MEQ 50ML VIAL 50 ML ONE ×2 (05:37→05:39)
[2022-08-19] MEDS: INSULIN HUMULIN R 100 UNIT/ML 3ML SQ SCH ×2 (05:42)
[2022-08-19] MEDS: MIDODRINE HCL 5 MG TABLET NG SCH (05:42)
[2022-08-19] MEDS: METOCLOPRAMIDE 10 MG/2 ML VIAL IVP SCH (05:44)
[2022-08-19] MEDS: LEVOTHYROXINE 25 MCG TABLET PO SCH (05:44)
[2022-08-19] MEDS: INSULIN GLARGINE 100 UNITS/ML 10 ML VIAL SQ SCH (05:44)
[2022-08-19] MEDS ORDERED: NOREPINEPHRIN 8MG/250ML NS PMX 250 ML IV ONE (06:03)
[2022-08-19] MEDS: ALBUTEROL 0.083% 2.5 MG/3 ML INH IH SCH ×2 (06:29)
[2022-08-19] MEDS: NOREPINEPHRINE BITARTRATE 32 MG in 0.9% NACL 250ML 250 ML IV SCH (06:32)
[2022-08-19] MEDS ORDERED: VANCOMYCIN 1G/250ML KIT 250 ML IV SCH (13:00)
== END 2022-08-19 19:09 | DRG 870 ==
LOC: EDH 18:29 → EDHIP 18:46 → 2CH 22:53
PROVIDERS: ADMIT Internal Medicine; ATTEND Internal Medicine
PROC: 5A1955Z Respiratory Ventilation, Greater than 96 Consecutive Hours (ICD-10-PCS; principal; 2022-07-30)
PROC: 0BH17EZ Insertion of Endotracheal Airway into Trachea, Via Natural or Artificial Opening (ICD-10-PCS; 2022-07-30)
PROC: 06HN33Z Insertion of Infusion Device into Left Femoral Vein, Percutaneous Approach (ICD-10-PCS; 2022-08-01)
PROC: 30233K1 Transfusion of Nonautologous Frozen Plasma into Peripheral Vein, Percutaneous Approach (ICD-10-PCS; 2022-08-01)
PROC: 5A1D70Z Performance of Urinary Filtration, Intermittent, Less than 6 Hours Per Day (ICD-10-PCS; 2022-08-01)
PROC: B54CZZA Ultrasonography of Left Lower Extremity Veins, Guidance (ICD-10-PCS; 2022-08-01)
PROC: 5A12012 Performance of Cardiac Output, Single, Manual (ICD-10-PCS; 2022-08-01)
PROC: 05PYX3Z Removal of Infusion Device from Upper Vein, External Approach (ICD-10-PCS; 2022-08-03)
PROC: 5A1D70Z Performance of Urinary Filtration, Intermittent, Less than 6 Hours Per Day (ICD-10-PCS; 2022-08-03)
PROC: 06HY33Z Insertion of Infusion Device into Lower Vein, Percutaneous Approach (ICD-10-PCS; 2022-08-06)
PROC: 5A1D70Z Performance of Urinary Filtration, Intermittent, Less than 6 Hours Per Day (ICD-10-PCS; 2022-08-06)
PROC: 5A09357 Assistance with Respiratory Ventilation, Less than 24 Consecutive Hours, Continuous Positive Airway Pressure (ICD-10-PCS; 2022-08-07)
PROC: 5A1D70Z Performance of Urinary Filtration, Intermittent, Less than 6 Hours Per Day (ICD-10-PCS; 2022-08-08)
PROC: 5A09357 Assistance with Respiratory Ventilation, Less than 24 Consecutive Hours, Continuous Positive Airway Pressure (ICD-10-PCS; 2022-08-08)
PROC: 0DJ08ZZ Inspection of Upper Intestinal Tract, Via Natural or Artificial Opening Endoscopic (ICD-10-PCS; 2022-08-09)
PROC: 5A1D70Z Performance of Urinary Filtration, Intermittent, Less than 6 Hours Per Day (ICD-10-PCS; 2022-08-10)
PROC: 5A1D70Z Performance of Urinary Filtration, Intermittent, Less than 6 Hours Per Day (ICD-10-PCS; 2022-08-12)
PROC: 30233N1 Transfusion of Nonautologous Red Blood Cells into Peripheral Vein, Percutaneous Approach (ICD-10-PCS; 2022-08-13)
PROC: 30233R1 Transfusion of Nonautologous Platelets into Peripheral Vein, Percutaneous Approach (ICD-10-PCS; 2022-08-15)
PROC: 5A1D70Z Performance of Urinary Filtration, Intermittent, Less than 6 Hours Per Day (ICD-10-PCS; 2022-08-17)
PROC: 5A09357 Assistance with Respiratory Ventilation, Less than 24 Consecutive Hours, Continuous Positive Airway Pressure (ICD-10-PCS; 2022-08-17)
PROC: 5A09357 Assistance with Respiratory Ventilation, Less than 24 Consecutive Hours, Continuous Positive Airway Pressure (ICD-10-PCS; 2022-08-18)
PROC: 5A09357 Assistance with Respiratory Ventilation, Less than 24 Consecutive Hours, Continuous Positive Airway Pressure (ICD-10-PCS; 2022-08-19)
DX: A41.89 Other specified sepsis (principal); R65.21 Severe sepsis with septic shock; N18.6 End stage renal disease; U07.1 COVID-19; J12.82 Pneumonia due to coronavirus disease 2019; J96.01 Acute respiratory failure with hypoxia; G93.41 Metabolic encephalopathy; I50.43 Acute on chronic combined systolic (congestive) and diastolic (congestive) heart failure; K72.00 Acute and subacute hepatic failure without coma; I13.2 Hypertensive heart and chronic kidney disease with heart failure and with stage 5 chronic kidney disease, or end stage renal disease; Z68.42 Body mass index [BMI] 45.0-49.9, adult; D68.4 Acquired coagulation factor deficiency; G93.1 Anoxic brain damage, not elsewhere classified; E87.4 Mixed disorder of acid-base balance; I47.1 Supraventricular tachycardia; T80.219A Unspecified infection due to central venous catheter, initial encounter; I46.9 Cardiac arrest, cause unspecified; S91.301A Unspecified open wound, right foot, initial encounter; I95.89 Other hypotension; D50.0 Iron deficiency anemia secondary to blood loss (chronic); Z66 Do not resuscitate; L97.529 Non-pressure chronic ulcer of other part of left foot with unspecified severity; L97.519 Non-pressure chronic ulcer of other part of right foot with unspecified severity; L89.152 Pressure ulcer of sacral region, stage 2; K21.00 Gastro-esophageal reflux disease with esophagitis, without bleeding; J45.909 Unspecified asthma, uncomplicated; I48.0 Paroxysmal atrial fibrillation; I25.10 Atherosclerotic heart disease of native coronary artery without angina pectoris; E87.6 Hypokalemia; E66.01 Morbid (severe) obesity due to excess calories; E11.65 Type 2 diabetes mellitus with hyperglycemia; E11.621 Type 2 diabetes mellitus with foot ulcer; E11.610 Type 2 diabetes mellitus with diabetic neuropathic arthropathy; E11.22 Type 2 diabetes mellitus with diabetic chronic kidney disease; E03.9 Hypothyroidism, unspecified; Y84.8 Other medical procedures as the cause of abnormal reaction of the patient, or of later complication, without mention of misadventure at the time of the procedure; E11.51 Type 2 diabetes mellitus with diabetic peripheral angiopathy without gangrene; E11.42 Type 2 diabetes mellitus with diabetic polyneuropathy; Z99.2 Dependence on renal dialysis; Z93.1 Gastrostomy status; Z89.511 Acquired absence of right leg below knee; Z86.73 Personal history of transient ischemic attack (TIA), and cerebral infarction without residual deficits; Z83.3 Family history of diabetes mellitus; Z82.49 Family history of ischemic heart disease and other diseases of the circulatory system; Z79.899 Other long term (current) drug therapy; Z74.01 Bed confinement status
CPT/HCPCS: 31500; 36415; 36589; 36600; 43235; 71045; 80048; 80053; 80150; 80202; 82140; 82330; 82435; 82550; 82728; 82803; 82947; 82948; 83605; 83735; 83874; 83880; 84100; 84132; 84145; 84295; 84443; 84484; 85014; 85018; 85025; 85027; 85378; 85384; 85610; 85730; 86706; 86850; 86900; 86901; 86923; 86927; 87040; 87070; 87071; 87076; 87077; 87186; 87205; 87340; 87635; 90935; 92950; 93005; 93306; 93970; 94002; 94003; 94640; 94660; 94667; 94668; 99291; C1751; C9113; G0378; J0153; J0171; J0278; J0282; J0692; J1100; J1160; J1450; J1580; J1644; J1720; J1815; J1940; J2185; J2354; J2370; J2405; J2543; J2597; J2704; J2765; J2997; J3010; J3475; J3480; J3490; J7030; J7050; J7060; J7070; J7131; J7608; P9016; P9017; P9034; P9045; P9046; P9047